=== PATIENT | female | born 2000 | race Caucasian/White ===

== ENCOUNTER 2024-01-27 08:50 | Inpatient (IN) | payer SELFPAY, OTHER ==
[2024-01-27] VITALS (21 sets, daily range): BP systolic 100–144; BP diastolic 62–88; PULSE 62–87; RESP 16–20; TEMP 36.3–37.2; O2SAT 98–100; BMI 25.3
[2024-01-27] MEDS: Lactated Ringers 1,000 ML 400 ML IV (09:20)
[2024-01-27] MEDS: Penicillin G Pot 5,000,000 UNITS in 0.9% Normal Saline (100mL MB+) 100 ML 150 UNITS IV (09:20)
[2024-01-27 09:38] LABS: Absolute Lymphocyte Count 1.84 X10^3/uL (0.83-4.51); Absolute Neutrophil Count 9.2 X10^3/uL (2.0-7.7); Basophil# 0.03 X10^3/uL; Basophil% 0.3 % (0-1); Eosinophil# 0.02 X10^3/uL; Eosinophils% 0.2 % (0-5); Hemoglobin 14.7 g/dL (12.0-15.0); Lymphocyte # 1.84 X10^3/ul (0.83-4.51); Lymphocyte % 15.5 % (19-41); Mean Corp Hgb Conc 34.2 g/dL (32-36); Mean Corpuscular Volume 87.8 fL (81-99); Mean Platelet Vol. 11.2 fl (6.2-12.0); Monocyte# 0.73 X10^3/uL; Monocyte% 6.2 % (0-10); NRBC Flagged by Analyzer 0 % (0-5); Neutrophil # 9.16 X10^3/uL (2.7-7.7); Neutrophil % 77.3 % (47-70); Platelet Count 212 K/mm3 (150-450); RBC Distribution Width SD 38.6 fl (35.1-43.9); White Blood Count 11.8 K/mm3 (4.4-11.0)
[2024-01-27 10:16] LABS: Syphilis Antibodies Non-reactive
[2024-01-27] MEDS: Penicillin G 3,000,000 Units 50 ML 100 UNITS IV (14:17)
[2024-01-27] MEDS: Ondansetron 4 MG/2 ML Vial IV (14:27)
[2024-01-27] MEDS: Oxytocin 10 UNITS/ML Vial IM (16:04)
[2024-01-27] MEDS: Lidocaine 1% (20 ml mdv) 20 ML Vial INFILT (16:04)
[2024-01-27] MEDS: Oxytocin 15 Units/NS 250ml 15 UNITS/250 ML IV.SOLN 83 UNITS IV (16:05)
--- NOTE | 2024-01-27 16:44 | EX.PCM.OBRPT ---
Assessment & Plan (1) (spontaneous vaginal delivery): (2) Post term over 40 weeks: Maternal Data Information Final CHRISTOPHER: 01/22/24 Gestational age: 40+5 Vaginal Delivery Maternal Presentation Maternal Presentation: Active Labor Operative Information Date of Procedure: 01/27/24 Pre-Operative Diagnosis: 40+5 presents in active labor Post-Operative Diagnosis: same Surgery / Procedure Performed: Spontaneous Vaginal Delivery Type of Anesthesia: None and Local with 1% Lidocaine Estimated Blood Loss: 150 cc Time of Delivery: 15:56 Findings Description of Procedure: Presented in active labor. Progressed to 7 cm and then SROM. Quickly progressed to complete and pushed over an intact perineum. CAN x1. Reduced before delivery. The anterior and posterior shoulder delivered easily. The was placed on maternal abdomen. The cord was doubly clamped and cut. Cord blood was collected. A second degree perineal laceration was repaired. Presentation: Vertex and NARINDER Amniotic Membrane Rupture Type: Spontaneous Amniotic Fluid Description: Clear Placental Delivery Description: Spontaneous Placenta Disposition: [facility] Cord Vessel Description: 3 Vessels Cord Entanglement: Around neck x 1, tight Infant A Gender: Female (1 minute): 8 (5 minute): 9 Delayed Cord Clamping: Yes Post Vaginal Delivery Medications Given After Delivery: IV Pitocin and IM Pitocin Laceration: Midline and 2nd degree Complication Complications: None
[2024-01-27] MEDS: Ibuprofen 600 MG Tablet PO (17:17)
[2024-01-27] MEDS: Acetaminophen 500 MG Tablet 1000 MG PO ×2 (17:18→23:48)
--- NOTE | 2024-01-28 01:38 | PCM.HP.OB ---
HPI - General General Date of Admission: 01/27/24 Date of Service: 01/27/24 Chief Complaint: Presented in active labor HPI Narrative MURIEL HILL, is a 23 F who presents to labor and delivery in active labor. Membranes intact. GBS positive Maternal Data Information Final CHRISTOPHER: 01/22/24 Gestational age: 40+5 PFSH PFSH Home Medications vit no.95-ferrous fumarate 28 mg-folic acid 800 mcg tablet () 1 tab PO DAILY 01/27/24 [History Last Taken 01/27/24] Allergy/AdvReac Type Severity Reaction Status Date / Time No Known Allergies Allergy Verified 01/27/24 08:45 Surgical History History of surgery Social History Smoking Status: Never smoker History 1 Elective abortions Hx Para 0 Spontaneous abortions Hx # Term Pregnancies Ectopic pregnancies Hx # Pregnancies Multiple births # of living children NST FHR Rate Baby A Variability:: Moderate Accelerations:: 15 x 15 Decelerations:: None NST Reactive:: Yes FHR Category:: Category I Uterine Activity:: q2-4 ROS Constitutional Constitutional: Denies fatigue, fever(s) or malaise Eyes Eyes: Denies change in vision ENT HEENT: Denies dizziness or headache(s) Cardiovascular Cardiovascular: Denies chest pain, dyspnea or lightheadedness Respiratory/Chest Respiratory/Chest: Denies cough or dyspnea Gastrointestinal Gastrointestinal: Denies change in bowel habits Genitourinary Genitourinary: Denies burning urination or genital lesions Integumentary Integumentary: Denies rash Neurologic Neurologic: Denies confusion, dizziness, headache(s), numbness or weakness Vital Signs Vital Signs Vital Signs: 01/27/24 09:31 01/27/24 09:31 01/27/24 09:31 Temperature Temperature Source Pulse Rate 78 Respiratory Rate Blood Pressure 111/68 Blood Pressure Mean BP Systolic 111 BP Diastolic 68 Blood Pressure Source Blood Pressure Position Blood Pressure Location Pulse Ox 100 Oxygen Delivery Method 01/27/24 09:54 01/27/24 09:31 01/27/24 09:31 Temperature 98.1 F Temperature Source Temporal Pulse Rate Respiratory Rate 16 Blood Pressure Blood Pressure Mean BP Systolic BP Diastolic Blood Pressure Source Blood Pressure Position Blood Pressure Location Pulse Ox Oxygen Delivery Method 01/27/24 09:31 01/27/24 11:47 01/27/24 11:47 Temperature 98.0 F Temperature Source Temporal Pulse Rate Respiratory Rate 18 Blood Pressure Blood Pressure Mean BP Systolic BP Diastolic Blood Pressure Source Blood Pressure Position Blood Pressure Location Pulse Ox Oxygen Delivery Method 01/27/24 11:47 01/27/24 11:51 01/27/24 11:51 Temperature 98.0 F Temperature Source Pulse Rate 82 Respiratory Rate Blood Pressure 120/79 Blood Pressure Mean BP Systolic 120 BP Diastolic 79 Blood Pressure Source Blood Pressure Position Blood Pressure Location Pulse Ox Oxygen Delivery Method 01/27/24 12:37 01/27/24 12:37 01/27/24 12:37 Temperature Temperature Source Pulse Rate 87 Respiratory Rate Blood Pressure 126/76 H Blood Pressure Mean BP Systolic 126 BP Diastolic 76 Blood Pressure Source Blood Pressure Position Blood Pressure Location Pulse Ox 100 Oxygen Delivery Method 01/27/24 12:37 01/27/24 14:00 01/27/24 14:01 Temperature 98.2 F 99.0 F Temperature Source Pulse Rate Respiratory Rate Blood Pressure 125/77 H Blood Pressure Mean BP Systolic 125 BP Diastolic 77 Blood Pressure Source Blood Pressure Position Blood Pressure Location Pulse Ox Oxygen Delivery Method 01/27/24 14:01 01/27/24 14:01 01/27/24 15:15 Temperature Temperature Source Pulse Rate 79 Respiratory Rate Blood Pressure 118/69 Blood Pressure Mean BP Systolic 118 BP Diastolic 69 Blood Pressure Source Blood Pressure Position Blood Pressure Location Pulse Ox 100 Oxygen Delivery Method 01/27/24 15:15 01/27/24 15:15 01/27/24 15:15 Temperature Temperature Source Temporal Pulse Rate 82 Respiratory Rate Blood Pressure Blood Pressure Mean BP Systolic BP Diastolic Blood Pressure Source Blood Pressure Position Blood Pressure Location Pulse Ox 100 Oxygen Delivery Method 01/27/24 15:16 01/27/24 16:28 01/27/24 16:28 Temperature 98.1 F Temperature Source Pulse Rate 79 Respiratory Rate Blood Pressure 121/72 H Blood Pressure Mean BP Systolic 121 BP Diastolic 72 Blood Pressure Source Blood Pressure Position Blood Pressure Location Pulse Ox Oxygen Delivery Method 01/27/24 16:43 01/27/24 16:43 01/27/24 16:58 Temperature Temperature Source Pulse Rate 75 Respiratory Rate Blood Pressure 125/78 H 134/81 H Blood Pressure Mean BP Systolic 125 134 BP Diastolic 78 81 Blood Pressure Source Blood Pressure Position Blood Pressure Location Pulse Ox Oxygen Delivery Method 01/27/24 16:58 01/27/24 17:13 01/27/24 17:13 Temperature Temperature Source Pulse Rate 70 73 Respiratory Rate Blood Pressure 108/80 Blood Pressure Mean BP Systolic 108 BP Diastolic 80 Blood Pressure Source Blood Pressure Position Blood Pressure Location Pulse Ox Oxygen Delivery Method 01/27/24 17:23 01/27/24 17:23 01/27/24 17:23 Temperature 98.6 F Temperature Source Temporal Pulse Rate Respiratory Rate 16 Blood Pressure Blood Pressure Mean BP Systolic BP Diastolic Blood Pressure Source Blood Pressure Position Blood Pressure Location Pulse Ox Oxygen Delivery Method 01/27/24 17:29 01/27/24 17:29 01/27/24 17:43 Temperature Temperature Source Pulse Rate 70 Respiratory Rate Blood Pressure 132/84 H 128/83 H Blood Pressure Mean BP Systolic 132 128 BP Diastolic 84 83 Blood Pressure Source Blood Pressure Position Blood Pressure Location Pulse Ox Oxygen Delivery Method 01/27/24 17:43 01/27/24 17:58 01/27/24 17:58 Temperature Temperature Source Pulse Rate 69 62 Respiratory Rate Blood Pressure 144/88 H Blood Pressure Mean BP Systolic 144 BP Diastolic 88 Blood Pressure Source Blood Pressure Position Blood Pressure Location Pulse Ox Oxygen Delivery Method 01/27/24 18:05 01/27/24 18:05 01/27/24 18:05 Temperature 98.1 F Temperature Source Temporal Pulse Rate Respiratory Rate 16 Blood Pressure Blood Pressure Mean BP Systolic BP Diastolic Blood Pressure Source Blood Pressure Position Blood Pressure Location Pulse Ox Oxygen Delivery Method 01/27/24 18:13 01/27/24 18:13 01/27/24 19:47 Temperature Temperature Source Temporal Pulse Rate 73 Respiratory Rate Blood Pressure 130/81 H Blood Pressure Mean BP Systolic 130 BP Diastolic 81 Blood Pressure Source Blood Pressure Position Blood Pressure Location Pulse Ox Oxygen Delivery Method 01/27/24 23:31 01/27/24 19:47 01/27/24 23:31 Temperature 97.4 F L 98.6 F Temperature Source Temporal Temporal Temporal Pulse Rate 77 83 Respiratory Rate 16 20 H Blood Pressure 110/74 100/62 Blood Pressure Mean 86 74 BP Systolic BP Diastolic Blood Pressure Source Monitor Monitor Blood Pressure Position Semi-Fowlers Semi-Fowlers Blood Pressure Location Left Arm Left Arm Pulse Ox 98 98 Oxygen Delivery Method Room Air Room Air Weight Weight: 71.214 kg Body Mass Index (BMI) 25.3 Physical Exam Const alert and no apparent distress General Appearance: cooperative HEENT normocephalic Resp normal respiratory effort Cardio regular rate GI soft to palpation GI Narrative: gravid, nontender, appropriate for gestational age Extremity no calf tenderness General Extremity: edema Skin no wounds Rashes: No rashes noted Psych activity/motor behavior normal Labs Labs Labs: Blood Type A NEGATIVE Antibody Screen NEGATIVE Hct 43.0 % (37-47) Hgb 14.7 g/dL (12.0-15.0) Syphilis Total Ab Non-reactive Assessment & Plan (1) Post term over 40 weeks: (2) Active labor at term: (3) Positive GBS test: PLAN: PCN
[2024-01-28 04:34] VITALS: BP 103/66; PULSE 73; RESP 16; TEMP 36.6; O2SAT 99
[2024-01-28] MEDS: Rho(D) Immune Globulin 300 MCG (1500 Unit) Syringe IV (07:50)
[2024-01-28] MEDS: 0.9% Saline Lock 10 ML Syringe IV (07:54)
[2024-01-28 08:45] VITALS: BP 105/73; PULSE 76; RESP 16; TEMP 36.8; O2SAT 97
--- NOTE | 2024-01-28 09:12 | PN.OBGYN_ITS ---
Subjective Subjective Doing well per patient and nursing staff. Ambulating and taking PO without difficulty. Voiding and passing flatus. Pain controlled. , services for assistance. Denies headache, visual changes, chest pain, shortness of breath, leg pain or increased bleeding. Lochia normal. Objective Data Objective Data Vital Signs: Vital Signs Temp Pulse Resp BP Pulse Ox O2 Del Method 97.8 F 73 16 103/66 99 Room Air 01/28/24 04:34 01/28/24 04:34 01/28/24 04:34 01/28/24 04:34 01/28/24 04:34 01/28/24 04:34 Oxygen Delivery Method Room Air Weight: 157 lb Body Mass Index (BMI) 25.3 Intake & Output: Intake and Output for Last 24 Hours 01/26/24 01/27/24 01/28/24 23:59 23:59 23:59 Intake Total 1051.67 / 1051.67 Output Total 800 / 1700 900 / 900 Balance 251.67 / -648.33 -900 / -900 Lab / Micro Data 01/27/24 09:15 Labs: Laboratory Results - last 24 hr 01/27/24 09:15: WBC 11.8 H, RBC 4.90, Hgb 14.7, Hct 43.0, MCV 87.8, MCH 30.0, MCHC 34.2, RDW Std Deviation 38.6, RDW Coeff of Janee 12.0, Plt Count 212, MPV 11.2, Immature Gran % (Auto) 0.500, Neut % (Auto) 77.3 H, Lymph % (Auto) 15.5 L, [place] % (Auto) 6.2, Eos % (Auto) 0.2, Baso % (Auto) 0.3, Absolute Neuts (auto) 9.2 H, Absolute Lymphs (auto) 1.84, Nucleated RBC % 0, Syphilis Total Ab Non- reactive, Blood Type A NEGATIVE, Antibody Screen NEGATIVE 01/27/24 23:40: Screen NEGATIVE, Baby's Blood Type O POSITIVE, Baby's TRENA NEGATIVE ROS Constitutional Constitutional: Reports systems reviewed and no addt'l complaints, except as documented; Denies headache(s) Eyes Eyes: Denies acute decrease in peripheral vision, blurry vision or change in vision ENT HEENT: Reports systems reviewed and no addt'l complaints, except as documented Cardiovascular Cardiovascular: Denies chest pain or dizziness Respiratory/Chest Respiratory/Chest: Denies cough, dyspnea, dyspnea on exertion, shortness of br eath at rest or shortness of breath with exertion Gastrointestinal Gastrointestinal: Denies abdominal pain, diarrhea, nausea or vomiting Genitourinary Genitourinary: Denies abdominal discomfort Musculoskeletal Musculoskeletal: Denies limited range of motion Integumentary Integumentary: Reports systems reviewed and no addt'l complaints, except as documented Neurologic Neurologic: Reports systems reviewed and no addt'l complaints, except as documented Psychiatric Psychiatric: Reports systems reviewed and no addt'l complaints, except as documented Endocrine Endocrinology: Reports systems reviewed and no addt'l complaints, except as documented Hematologic/Lymphatic Hematologic/Lymphatic: Reports systems reviewed and no addt'l complaints, except as documented Allergic/Immunologic Allergic/Immunologic: Reports systems reviewed and no addt'l complaints, except as documented Physical Exam Const alert and oriented x3 General Appearance: cooperative Orientation / Consciousness: awake, oriented to person, oriented to place and oriented to time Exam Limitations: no limitations HEENT normocephalic Head and Scalp: normal to inspection, normocephalic and atraumatic Face and Sinus: normal facial exam Eyes General Eye: normal appearance of both eyes Neck full ROM Chest Chest: symmetrical chest wall rise Resp normal respiratory effort and normal air movement Auscultation: clear to auscultation bilaterally Cardio regular rate, regular rhythm, S1 normal heart sound, S2 normal heart sound, no murmurs, no rub, no gallops and no clicks GI normal to inspection, nondistended, normoactive bowel sounds and non-tender appearance of the vagina normal Bladder / Kidney Exam: no CVA tenderness Back/Spine normal ROM Extremity normal to inspection and full ROM Skin no rashes or lesions noted Neuro oriented x3 and moves all extremities Sensorium / Orientation: awake, alert and oriented to person Motor Exam: clonus absent Deep Tendon Reflexes: Rt Patellar (L4): 2+ and Lt Patellar (L4): 2+ Assessment & Plan (1) (spontaneous vaginal delivery): (2) Lactating mother: PLAN: Plan 1) Routine PP care 2) 3) vitals stable 4) GBS positive without adequate treatment, D/C tomorrow
[2024-01-28] MEDS: Acetaminophen 500 MG Tablet 1000 MG PO (09:40)
--- NOTE | 2024-01-28 13:00 | PCM.DC.SUM ---
Providers Date of Admission: 01/27/24 Date of Discharge: 01/28/24 Primary Care Physician: Chelsea Primary Care Phys Reason For Visit: VAGINAL DELIVERY Diagnosis Discharge Diagnosis (1) (spontaneous vaginal delivery): Status: Acute Code(s): O80 - Encounter for full-term uncomplicated delivery (2) Lactating mother: Status: Acute Code(s): Z39.1 - Encounter for care and examination of lactating mother Plan 1) Routine PP care 2) 3) vitals stable 4) GBS positive without adequate treatment, D/C tomorrow Medications at Discharge Home Medications vit no.95-ferrous fumarate 28 mg-folic acid 800 mcg tablet () 1 tab PO DAILY 01/27/24 acetaminophen 500 mg tablet 1,000 mg (2 x 500 mg) PO Q6H PRN PRN Pain 1-10 Or Fever #0 tabs 01/28/24 ibuprofen 600 mg tablet 600 mg PO Q6H PRN PRN Pain Score 1-10 #0 tabs 01/28/24 Hospital Course Summary of Care Provided Minutes Spent on Discharge: 15 Weight / BMI Weight Weight: 157 lb Body Mass Index (BMI) 25.3 ABG / Lab / Microbiology Data 01/27/24 09:15 Laboratory: Laboratory Results - last 24 hr 01/27/24 23:40: Screen NEGATIVE, Baby's Blood Type O POSITIVE, Baby's TRENA NEGATIVE D/C Instructions Discharge Diet: No restrictions May resume sexual activity in: 6 weeks Weight Bearing Status: Full weight bearing Lifting Restricted to (Lbs): 20 Call your doctor if you observe: Fever of 101 or Higher, Inability to urinate, Inability to have a bowel movement, Using more than 1 pad per hour, Shortness of breath, Dizziness, Fainting spells, Chest pain, Increased palpitations (irregular heartbeat), Calf discomfort and Uncontrolled pain When: Follow up in 2 weeks for virtual or in person visit. 6 weeks for in person visit Meaningful Use Info Meaningful Use Meaningful Use Diagnoses (Choose all that apply): None applicable Ischemic Stroke Statin Dosing Therapy Reference: STATIN DOSE THERAPY REFERENCE: * Patients > 75 years receive moderate or high dose statin therapy. * Patients 75 years or YOUNGER should receive HIGH intensity statin dose unless contraindicated. You will be required to document reason for non-treatment if statin daily dose does not meet guidelines. HIGH DOSE STATIN THERAPY DAILY Atorvastatin > than or = to 40 mg Rosuvastatin > than or = to 20 mg Amlodipine + Atorvastatin > than or = to 2.5/40 mg Ezetimibe + Simvastatin 10/80 mg Simvastatin 80mg Discharge Plan Admission Admit Date/Time: 01/27/24 08:50 Primary Reason for Your Visit: Vaginal Delivery Attending Provider: Dayan Mcwilliams Primary Care Provider: Care Physician,No Primary Discharge Orders/Prescriptions Prescriptions: New acetaminophen 500 mg Tablet 1,000 mg PO Q6H PRN PRN (Reason: Pain 1-10 Or Fever) Qty: 0 0RF ibuprofen 600 mg Tablet 600 mg PO Q6H PRN PRN (Reason: Pain Score 1-10) Qty: 0 0RF Continued PNV cmb#95-ferrous fumarate-FA [] 28 mg iron- 800 mcg tablet 1 tab PO DAILY Referrals / Follow Up: Care Physician,No Primary [Primary Care Provider] - Disposition Disposition (needs filled in before D/C Order can be placed): Home, Self Care
[2024-01-28 13:01] VITALS: BP 103/70; PULSE 78; RESP 16; TEMP 36.7; O2SAT 98
[2024-01-28] MEDS: Ibuprofen 600 MG Tablet PO (14:33)
[2024-01-28 16:00] VITALS: BP 100/67; PULSE 71; RESP 16; TEMP 36.2; O2SAT 97
== END 2024-01-28 18:50 | disposition home or self-care (01) | DRG 807 ==
LOC: WP 08:55
PROVIDERS: Admitting Provider Obstetrics & Gynecology; Visit Provider Obstetrics & Gynecology
DX: O48.0 Post-term pregnancy (principal); Z37.0 Single live birth; B95.1 Streptococcus, group B, as the cause of diseases classified elsewhere; O70.1 Second degree perineal laceration during delivery; O99.824 Streptococcus B carrier state complicating childbirth; Z3A.40 40 weeks gestation of pregnancy
CPT/HCPCS: 59025; 59050; 85025; 85461; 86780; 86850; 86900; 86901; 90384; 99221; J7120; A4216; G0378; J2405; J2790; J2791

== ENCOUNTER 2025-07-28 17:55 | Inpatient (IN) | payer SELFPAY, OTHER ==
[2025-07-28] VITALS (7 sets, daily range): BP systolic 111–128; BP diastolic 69–79; PULSE 83–91; RESP 13–16; TEMP 36.2–36.7; O2SAT 96–99; BMI 24.9
--- OUTSIDE RECORDS SUMMARY | 2025-07-28 18:17 | XMS RPT_ITS | CCD ---
Author Organization [facility] Inform ion Partnership [facility] Care Team Providers Care Assembler Corncob Pipes Name Role Phone Unavailable Primary Care Provider Unavailabl e Care Physician, No Primary Primary Care Unava ilable Lia Tariq Admitting Unavail able Lia Tariq Attending Unavail able Lia Tariq Referring Unavail able Unavailable Primary Care Provider Unavailabl e MARCEL, BEN Attending Unavailable HAURY, BEN Referring Unavailable HAURY, BEN Referring Unavailable HAURY, BEN Referring Unavailable HAURY, BEN Attending Unavailable YI COBOS Attending Unavailable LIA UREÑA Attending Unavail able HABRAYAN, BEN Attending Unavailable HAURY, BEN Attending Unavailable YI COBOS Attending Unavailable DAYAN MCWILLIAMS Attending Unavailable KALE ZAMBRANO Attending Unavailable KALE ZAMBRANO Attending Unavailable DAYAN MCWILLIAMS Attending Unavailable Medications Current Medications Medication Drug Class(es) Dates Sig (Normalized) Sig (Original) acetaminophen 500 mg oral tablet (1 source) Start: 01-28-2024 take 1000 mg by mouth every six hours as needed Acetaminophen Active 1000 MG PO EVERY 6 HOURS NEEDED 0 January 28, 2024 12:00am amoxicillin 500 mg oral capsule (7 sources) Penicillin-class Antibacterial Start: 11-27-2022 End: 12-07-2022 take 1 capsule by mouth twice daily amoxicillin (POLYMOX, AMOXIL) 500 mg capsule Take 1 capsule by mouth twice daily for 10 days. 20 capsule 0 11/27/2022 12/07/2022 Active Start: 11-21-2006 take 2 [tsp_us] by m outh three times daily AMOXICILLIN 250 MG/5 ML ORAL SUSP Indications: Acute suppurative otitis media without spontaneous rupture of eardrum 2 tsp po tid for 7 days qs 0 11/21/2006 Active Comment on above: Take 1 capsule by mo uth twice daily for 10 days. 2 tsp po tid for 7 d ays aspirin 81 mg delayed release oral tablet (1 source) Platelet Aggregation Inhibitor, Nonsteroidal Anti-inflammatory Drug Start: 5 take 1 tablet by mouth once daily aspirin, enteric coated (ECOTRIN LOW STRENGTH) 81 mg EC tablet Indications: Encounter for supervision of other normal in first trimester (HCC) , with uncertain dates in first trimester (HCC) Take 1 tablet by mouth once daily. 90 tablet 3 01/20/2025 Active ibuprofen 600 mg oral tablet (1 source) Nonsteroidal Anti-inflammatory Drug Start: 4 take 600 mg by mouth every six hours as needed Ibuprofen Active 600 MG PO EVERY 6 HOURS NEEDED 0 January 28, 2024 12:00am Iron (20 sources) PNV [id number]-om-3s-dh a-epa 3.33 mg iron- 0.33 mg chew Take by mouth. Active PNV 803-bcyz-IZ- ch-1g-kez-epa 3.33 mg iron- 0.33 mg chew Take by mouth. 0 Active Comment on above: Take by mouth. Pnv Cmb#95-Ferrous Fumarate-Fa () 28 mg iron- 800 mcg tablet (1 source) Start: 01-27-2024 take 1 tablet by mouth once daily Pnv Cmb#95-Ferrous Fumarate-Fa () 28 mg iron- 800 mcg tablet Active 1 TABLET PO DAILY January 27, 2024 12:00am Completed/Discontinued Medications Medication Drug Class(es) Dates Sig (Normalized) Sig (Original) Antipyrine / Benzocaine (6 sources) Standardized Chemical Allergen Start: 11-21-2006 ANTIPYRINE-BENZOCAI NE 5.4 %-1.4 % EAR DROPS Indications: Acute suppurative otitis media without spontaneous rupture of eardrum Instill 4-5 drops into affected ear(s), repeat every 1-2 hr if necessary. 10 ml 0 11/21/2006 Active Comment on above: Instill 4-5 drops in to affected ear(s), repeat every 1-2 hr if necessary. ferrous sulfate (8 sources) End: 03-09-2024 ferrous sulfate (IRON ORAL) Take by mouth. 0 03/09/2024 Discontinued ferrous sulfate (IRON ORAL) Take by mouth. 0 Active Comment on above: Take by mouth. Problems Active Problems Problem Classification Problem Date Documented Da te Episodic/Chronic Bacterial infection; unspecified site (2 sources) Bacteria present; Translations: [Streptococcus, group B, as the cause of diseases classified elsewhere] 01-28-2024 Episodic Other complications of (12 sources) RhD negative; Translations: [Other specified related conditions, unspecified trimester] Onset: 01-20-2025 01-20-2025 Episodic Other complications of (17 sources) High risk ; Translations: [Supervision of high risk , unspecified, second trimester] Onset: 01-20-2025 02-24-2025 Episodic Other complications of (1 source) Supervision of high risk , unspecified, third trimester; Translations: [Supervision of high risk in third trimester (HCC)] Onset: 05-21-2025 Episodic Other complications of (1 source) Supervision of other high risk pregnancies, third trimester; Translations: [Short interval between pregnancies affecting in third trimester, antepartum (HCC)] Onset: 05-05-2025 Episodic Other upper respiratory infections (2 sources) Sore throat symptom; Translations: [Acute pharyngitis, unspecified] Episodic Prolonged (2 sources) Post-term ; Translations: [Post-term ] 01-27-2024 Episodic Residual codes; unclassified (1 source) Gestation period, 14 weeks; Translations: [14 weeks gestation of ] 07-30-2023 Episodic Residual codes; unclassified (2 sources) Gestation period, 19 weeks; Translations: [19 weeks gestation of ] 09-02-2023 Episodic Residual codes; unclassified (1 source) Gestation period, 32 weeks; Translations: [32 weeks gestation of ] 11-27-2023 Episodic Residual codes; unclassified (1 source) Gestation period, 35 weeks; Translations: [35 weeks gestation of ] 12-24-2023 Episodic Residual codes; unclassified (1 source) Gestation period, 37 weeks; Translations: [37 weeks gestation of ] 01-01-2024 Episodic Residual codes; unclassified (2 sources) Gestation period, 39 weeks; Translations: [39 weeks gestation of ] 01-17-2024 Episodic Residual codes; unclassified (1 source) Gestation period, 22 weeks; Translations: [22 weeks gestation of ] 03-24-2025 Episodic Residual codes; unclassified (1 source) Gestation period, 26 weeks; Translations: [26 weeks gestation of ] 04-21-2025 Episodic Residual codes; unclassified (1 source) Gestation period, 28 weeks; Translations: [28 weeks gestation of ] 05-05-2025 Episodic Residual codes; unclassified (1 source) Gestation period, 30 weeks; Translations: [30 weeks gestation of ] 05-21-2025 Episodic Residual codes; unclassified (1 source) Gestation period, 33 weeks; Translations: [33 weeks gestation of ] 06-11-2025 Episodic Residual codes; unclassified (1 source) 39 weeks gestation of ; Translations: [39 weeks gestation of (HCC)] Onset: 07-21-2025 Episodic Residual codes; unclassified (1 source) 38 weeks gestation of ; Translations: [38 weeks gestation of (HCC)] Onset: 07-13-2025 Episodic Residual codes; unclassified (1 source) 37 weeks gestation of ; Translations: [37 weeks gestation of (HCC)] Onset: 07-06-2025 Episodic Residual codes; unclassified (1 source) 35 weeks gestation of ; Translations: [35 weeks gestation of (HCC)] Onset: 06-25-2025 Episodic Residual codes; unclassified (1 source) 33 weeks gestation of ; Translations: [33 weeks gestation of (HCC)] Onset: 06-11-2025 Episodic Residual codes; unclassified (1 source) 30 weeks gestation of ; Translations: [30 weeks gestation of (HCC)] Onset: 05-21-2025 Episodic Residual codes; unclassified (1 source) 28 weeks gestation of ; Translations: [28 weeks gestation of (HCC)] Onset: 05-05-2025 Episodic Unclassified (2 sources) Normal labor; Translations: [Active labor at term] 01-28-2024 Past or Other Problems Problem Classification Problem Date Documented Date Episodic/Chronic Genitourinary symptoms and ill-defined conditions (20 sources) Bacteriuria; Translations: [Bacteriuria] Onset: 08-01-2023 Resolved: 03-09-2024 08-01-2023 Episodic Immunizations and screening for infectious disease (1 source) Encounter for screening for infections with a predominantly sexual mode of transmission; Translations: [Screen for STD (sexually transmitted disease)] Onset: 01-20-2025 Episodic Other complications of ; puerperium affecting management of mother (20 sources) Central nervous system malformation in fetus affecting obstetrical care; Translations: [Choroid plexus cyst of fetus affecting care of mother, antepartum, single or unspecified fetus] Onset: 08-14-2023 Resolved: 03-09-2024 08-14-2023 Episodic Other complications of (20 sources) Anemia of ; Translations: [Anemia complicating , third trimester] Onset: 10-31-2023 Resolved: 03-09-2024 10-31-2023 Chronic Other complications of (20 sources) Late entry into care; Translations: [Supervision of with insufficient care, unspecified trimester] Onset: 07-25-2023 Resolved: 03-09-2024 07-25-2023 Episodic Other complications of (1 source) Other specified related conditions, unspecified trimester; Translations: [Rh negative state in antepartum period (HCC)] Onset: 01-20-2025 Episodic Other complications of (1 source) Supervision of high risk , unspecified, second trimester; Translations: [Supervision of high risk in second trimester (HCC)] Onset: 02-24-2025 Episodic Other complications of (1 source) Supervision of other high risk pregnancies, second trimester; Translations: [Short interval between pregnancies affecting in second trimester, antepartum (HCC)] Onset: 02-24-2025 Episodic Other and delivery including normal (20 sources) Normal ; Translations: [Encounter for supervision of normal first , third trimester] Onset: 01-20-2025 11-27-2023 Episodic Other screening for suspected conditions (not mental disorders or infectious disease) (5 sources) Patient encounter status; Translations: [Encounter for other specified screening] Onset: 03-24-2025 09-02-2023 Episodic Residual codes; unclassified (1 source) Gestation period, 38 weeks; Translations: [38 weeks gestation of ] 01-10-2024 Episodic Residual codes; unclassified (1 source) 26 weeks gestation of ; Translations: [26 weeks gestation of (HCC)] Onset: 04-21-2025 Episodic Residual codes; unclassified (1 source) 22 weeks gestation of ; Translations: [22 weeks gestation of ([facility])] Onset: 03-24-2025 Episodic Residual codes; unclassified (1 source) Unspecified blood type, Rh negative; Translations: [Rh negative state in antepartum period ([facility])] Onset: 01-20-2025 Episodic Residual codes; unclassified (1 source) 18 weeks gestation of ; Translations: [18 weeks gestation of ([facility])] Onset: 02-24-2025 Episodic Results Test Name Value Interpretation Reference Range Facil ity ROUTINE, GROUP B ST REPTOCOCCUS BY PCRon 07-06-2025 ROUTINE, GROUP B STREPTOCOCCUS BY PCR Detected Abnormal [facility] Comment on above: Performed By: #### 5 7021-8 #### [facility] CLIA [id number] [address] [place] [address] [place] URINE OB DIP B/Oon Glucose Ql (U) Negative Neg mg/dL [facility] Protein.monoclonal (U) [Mass/Vol] Negative Neg mg/dL [facility] CBC W Auto Differential pane l (Bld)on 05-05-2025 Basophils (Bld) [#/Vol] 10*3/uL Normal <0.11 [facility] Comment on above: Order Comment: Speci men Type: BLOOD SPECIMEN Ordering Facility: [facility] Address: [address] [place] [address] Performed By: #### 5 7021-8 #### [facility] CLIA [id number] [address] [place] [address] [place] Basophils/100 WBC (Bld) 0.1 % Normal [facility] Comment on above: Order Comment: Speci men Type: BLOOD SPECIMEN Ordering Facility: [facility] Address: [address] [place] [address] Performed By: #### 5 7021-8 #### [facility] CLIA [id number] [address] [place] [address] [place] Differential cell count method Nom (Bld) Auto Normal [facility] Comment on above: Order Comment: Speci men Type: BLOOD SPECIMEN Ordering Facility: [facility] Address: [address] [place] [address] Performed By: #### 5 7021-8 #### [facility] CLIA [id number] [address] [place] [address] [place] Eosinophils (Bld) [#/Vol] 0.07 10*3/uL Normal <0.46 [facility] Comment on above: Order Comment: Speci men Type: BLOOD SPECIMEN Ordering Facility: [facility] Address: [address] [place] [address] Performed By: #### 5 7021-8 #### [facility] CLIA [id number] [address] [place] [address] [place] Eosinophils/100 WBC (Bld) 1.0 % Normal [facility] Comment on above: Order Comment: Speci men Type: BLOOD SPECIMEN Ordering Facility: [facility] Address: [address] [place] [address] Performed By: #### 5 7021-8 #### [facility] CLIA [id number] [address] [place] [address] [place] Erythrocyte distribution width (RBC) [Ratio] 11.9 % Normal 11.5-15.0 [facility] Comment on above: Order Comment: Speci men Type: BLOOD SPECIMEN Ordering Facility: [facility] Address: [address] [place] [address] Performed By: #### 5 7021-8 #### [facility] CLIA [id number] [address] [place] [address] [place] Hematocrit (Bld) [Volume fraction] 32.9 % Low 36.0-46.0 [facility] Comment on above: Order Comment: Speci men Type: BLOOD SPECIMEN Ordering Facility: [facility] Address: [address] [place] [address] Performed By: #### 5 7021-8 #### [facility] CLIA [id number] [address] [place] [address] [place] Hemoglobin (Bld) [Mass/Vol] 11.0 g/dL Low 11.5-15.5 [facility] Comment on above: Order Comment: Speci men Type: BLOOD SPECIMEN Ordering Facility: [facility] Address: [address] [place] [address] Performed By: #### 5 7021-8 #### [facility] CLIA [id number] [address] [place] [address] [place] Immature granulocytes (Bld) [#/Vol] 0.03 10*3/uL Normal <0.10 [facility] Comment on above: Order Comment: Speci men Type: BLOOD SPECIMEN Ordering Facility: [facility] Address: [address] [place] [address] Performed By: #### 5 7021-8 #### [facility] CLIA [id number] [address] [place] [address] [place] Immature granulocytes/100 WBC (Bld) 0.4 % Normal [facility] Comment on above: Order Comment: Speci men Type: BLOOD SPECIMEN Ordering Facility: [facility] Address: [address] [place] [address] Performed By: #### 5 7021-8 #### [facility] CLIA [id number] [address] [place] [address] [place] Lymphocytes (Bld) [#/Vol] 1.35 10*3/uL Normal 1.00-4.00 [facility] Comment on above: Order Comment: Speci men Type: BLOOD SPECIMEN Ordering Facility: [facility] Address: [address] [place] [address] Performed By: #### 5 7021-8 #### [facility] CLIA [id number] [address] [place] [address] [place] Lymphocytes/100 WBC (Bld) 19.8 % Normal [facility] Comment on above: Order Comment: Speci men Type: BLOOD SPECIMEN Ordering Facility: [facility] Address: [address] [place] [address] Performed By: #### 5 7021-8 #### [facility] CLIA [id number] [address] [place] [address] [place] MCH (RBC) [Entitic mass] 30.4 pg Normal 26.0-34.0 [facility] Comment on above: Order Comment: Speci men Type: BLOOD SPECIMEN Ordering Facility: [facility] Address: [address] [place] [address] Performed By: #### 5 7021-8 #### [facility] CLIA [id number] [address] [place] [address] [place] MCHC (RBC) [Mass/Vol] 33.4 g/dL Normal 30.5-36.0 [facility] Comment on above: Order Comment: Speci men Type: BLOOD SPECIMEN Ordering Facility: [facility] Address: [address] [place] [address] Performed By: #### 5 7021-8 #### [facility] CLIA [id number] [address] [place] [address] [place] MCV (RBC) [Entitic vol] 90.9 fL Normal 80.0-100.0 [facility] Comment on above: Order Comment: Speci men Type: BLOOD SPECIMEN Ordering Facility: [facility] Address: [address] [place] [address] Performed By: #### 5 7021-8 #### [facility] CLIA [id number] [address] [place] [address] [place] Monocytes (Bld) [#/Vol] 0.49 10*3/uL Normal <0.87 [facility] Comment on above: Order Comment: Speci men Type: BLOOD SPECIMEN Ordering Facility: [facility] Address: [address] [place] [address] Performed By: #### 5 7021-8 #### [facility] CLIA [id number] [address] [place] [address] [place] Monocytes/100 WBC (Bld) 7.2 % Normal [facility] Comment on above: Order Comment: Speci men Type: BLOOD SPECIMEN Ordering Facility: [facility] Address: [address] [place] [address] Performed By: #### 5 7021-8 #### [facility] CLIA [id number] [address] [place] [address] [place] Neutrophils (Bld) [#/Vol] 4.88 10*3/uL Normal 1.45-7.50 [facility] Comment on above: Order Comment: Speci men Type: BLOOD SPECIMEN Ordering Facility: [facility] Address: [address] [place] [address] Performed By: #### 5 7021-8 #### [facility] CLIA [id number] [address] [place] [address] [place] Neutrophils/100 WBC (Bld) 71.5 % Normal [facility] Comment on above: Order Comment: Speci men Type: BLOOD SPECIMEN Ordering Facility: [facility] Address: [address] [place] [address] Performed By: #### 5 7021-8 #### [facility] CLIA [id number] [address] [place] [address] [place] Nucleated RBC (Bld) [#/Vol] 10*3/uL Normal <0.01 [facility] Comment on above: Order Comment: Speci men Type: BLOOD SPECIMEN Ordering Facility: [facility] Address: [address] [place] [address] Performed By: #### 5 7021-8 #### [facility] CLIA [id number] [address] [place] [address] [place] Nucleated RBC/100 WBC (Bld) [Ratio] 0.0 /100 WBC Normal [facility] Comment on above: Order Comment: Speci men Type: BLOOD SPECIMEN Ordering Facility: [facility] Address: [address] [place] [address] Performed By: #### 5 7021-8 #### [facility] CLIA [id number] [address] [place] [address] [place] Platelet mean volume (Bld) [Entitic vol] 10.8 fL Normal 9.0-12.7 [facility] Comment on above: Order Comment: Speci men Type: BLOOD SPECIMEN Ordering Facility: [facility] Address: [address] [place] [address] Performed By: #### 5 7021-8 #### [facility] CLIA [id number] [address] [place] [address] [place] Platelets (Bld) [#/Vol] 178 10*3/uL Normal 150-400 [facility] Comment on above: Order Comment: Speci men Type: BLOOD SPECIMEN Ordering Facility: [facility] Address: [address] [place] [address] Performed By: #### 5 7021-8 #### [facility] CLIA [id number] [address] [place] [address] [place] RBC (Bld) [#/Vol] 3.62 10*6/uL Low 3.90-5.20 [facility] Comment on above: Order Comment: Speci men Type: BLOOD SPECIMEN Ordering Facility: [facility] Address: [address] [place] [address] Performed By: #### 5 7021-8 #### [facility] CLIA [id number] [address] [place] [address] [place] WBC (Bld) [#/Vol] 6.83 10*3/uL Normal 3.70-11.00 [facility] Comment on above: Order Comment: Speci men Type: BLOOD SPECIMEN Ordering Facility: [facility] Address: [address] [place] [address] Performed By: #### 5 7021-8 #### [facility] CLIA [id number] [address] [place] [address] [place] GESTATIONAL GLUCOSE SCREEN, 1-HOUR, 50 GRAM, NON-FASTINGon 05-05-2025 Glucose [Mass/Vol] 118 mg/dL Normal 74-134 [facility] Comment on above: Order Comment: Speci men Type: BLOOD SPECIMEN Ordering Facility: [facility] Address: [address] [place] [address] Result Comment: [facility] Congress of Obstetricians and Gynecologists (Lucas/Dar) guidelines state a gestational diabetes mellitus positive screen is made, in women not previously diagnosed with overt diabetes, when the 1 hr plasma glucose level is equal to or above 140 mg/dL. The [facility] [employer] [facility] recommends a 135 mg/dL cutoff. Performed By: #### G LTGST #### [facility] CLIA [id number] [address] [place] [address] [place] Reagin and Treponema pallidu m IgG and IgM [Interp]on 05-05-2025 T. pallidum IgG+IgM IA Ql (S) Non-Reactive Normal Nonreactive [facility] Comment on above: Order Comment: Speci men Type: BLOOD SPECIMEN Ordering Facility: [facility] Address: [address] [place], [place] [address] Performed By: #### 5 7021-8 #### [facility] CLIA [id number] [address] [place] [address] [place] Reagin+T pallidum IgG+IgM Se rPl-Impon 05-05-2025 Reagin and Treponema pallidum IgG and IgM [Interp] Cannot exclude recent Treponemal infection if specimen collected within 7-10 days after appearance of suspect lesions or 2-3 weeks after an exposure. Clinical correlation is required. Normal [facility] Comment on above: Order Comment: Speci men Type: BLOOD SPECIMEN Ordering Facility: [facility] Address: [address] [place] [address] Performed By: #### 5 7021-8 #### [facility] CLIA [id number] [address] [place] [address] [place] TYPE + SCREEN PRENATALon ABO A Normal [facility] Comment on above: Order Comment: Speci men Type: BLOOD SPECIMEN Ordering Facility: [facility] Address: [address] [place] [address] Performed By: #### T SPN #### [facility] CLIA [id number] [address] [place] [address] [place] Rh Nom (Bld) Negative Normal [facility] Comment on above: Order Comment: Speci men Type: BLOOD SPECIMEN Ordering Facility: [facility] Address: [address] [place] [address] Performed By: #### T SPN #### [facility] CLIA [id number] [address] [place] [address] [place] TYPE AND SCREEN EXPIRATION 05/08/2025 23:59 Normal [facility] Comment on above: Order Comment: Speci men Type: BLOOD SPECIMEN Ordering Facility: [facility] Address: [address] [place] [address] Performed By: #### T SPN #### [facility] CLIA [id number] [address] [place] [address] [place] Bacteria Ur Culton Bacteria identified Cx Nom (U) ORGANISM ID: 1 10,000 -<50,000 CFU/ml Normal urogenital yoly Normal [facility] Comment on above: Performed By: #### 5 7021-8 #### [facility] CLIA [id number] [address] [place] [address] [place] C. trachomatis+N. gonorrhoea e DNA ELENA+probe Ql (Unsp spec)on 01-20-2025 C. trachomatis rRNA ELENA+probe Ql (Unsp spec) Not detected Normal Not detected [facility] Comment on above: Order Comment: Speci men Type: SWAB Ordering Facility: [facility] Address: [address] [place] [address] Performed By: #### 3 6902-5, TRVAMP #### [facility] CLIA [id number] [address] [place] [address] [place] N. gonorrhoeae rRNA ELENA+probe Ql (Unsp spec) Not detected Normal Not detected [facility] Comment on above: Order Comment: Speci men Type: SWAB Ordering Facility: [facility] Address: [address] [place] [address] Performed By: #### 3 6902-5, TRVAMP #### [facility] CLIA [id number] [address] [place] [address] [place] CBC W Auto Differential pane l (Bld)on 01-20-2025 Basophils (Bld) [#/Vol] 0.03 10*3/uL Normal <0.11 [facility] Comment on above: Order Comment: Speci men Type: BLOOD SPECIMEN Ordering Facility: [facility] Address: [address] [place] [address] Performed By: #### 5 7021-8 #### [facility] CLIA [id number] [address] [place] [address] [place] Basophils/100 WBC (Bld) 0.4 % Normal [facility] Comment on above: Order Comment: Speci men Type: BLOOD SPECIMEN Ordering Facility: [facility] Address: [address] [place] [address] Performed By: #### 5 7021-8 #### [facility] CLIA [id number] [address] [place] [address] [place] Differential cell count method Nom (Bld) Auto Normal [facility] Comment on above: Order Comment: Speci men Type: BLOOD SPECIMEN Ordering Facility: [facility] Address: [address] [place] [address] Performed By: #### 5 7021-8 #### [facility] CLIA [id number] [address] [place] [address] [place] Eosinophils (Bld) [#/Vol] 0.05 10*3/uL Normal <0.46 [facility] Comment on above: Order Comment: Speci men Type: BLOOD SPECIMEN Ordering Facility: [facility] Address: [address] [place] [address] Performed By: #### 5 7021-8 #### [facility] CLIA [id number] [address] [place] [address] [place] Eosinophils/100 WBC (Bld) 0.6 % Normal [facility] Comment on above: Order Comment: Speci men Type: BLOOD SPECIMEN Ordering Facility: [facility] Address: [address] [place] [address] Performed By: #### 5 7021-8 #### [facility] CLIA [id number] [address] [place] [address] [place] Erythrocyte distribution width (RBC) [Ratio] 12.2 % Normal 11.5-15.0 [facility] Comment on above: Order Comment: Speci men Type: BLOOD SPECIMEN Ordering Facility: [facility] Address: [address] [place] [address] Performed By: #### 5 7021-8 #### [facility] CLIA [id number] [address] [place] [address] [place] Hematocrit (Bld) [Volume fraction] 36.0 % Normal 36.0-46.0 [facility] Comment on above: Order Comment: Speci men Type: BLOOD SPECIMEN Ordering Facility: [facility] Address: [address] [place] [address] Performed By: #### 5 7021-8 #### [facility] CLIA [id number] [address] [place] [address] [place] Hemoglobin (Bld) [Mass/Vol] 12.6 g/dL Normal 11.5-15.5 [facility] Comment on above: Order Comment: Speci men Type: BLOOD SPECIMEN Ordering Facility: [facility] Address: [address] [place] [address] Performed By: #### 5 7021-8 #### [facility] CLIA [id number] [address] [place] [address] [place] Immature granulocytes (Bld) [#/Vol] 0.03 10*3/uL Normal <0.10 [facility] Comment on above: Order Comment: Speci men Type: BLOOD SPECIMEN Ordering Facility: [facility] Address: [address] [place] [address] Performed By: #### 5 7021-8 #### [facility] CLIA [id number] [address] [place] [address] [place] Immature granulocytes/100 WBC (Bld) 0.4 % Normal [facility] Comment on above: Order Comment: Speci men Type: BLOOD SPECIMEN Ordering Facility: [facility] Address: [address] [place] [address] Performed By: #### 5 7021-8 #### [facility] CLIA [id number] [address] [place] [address] [place] Lymphocytes (Bld) [#/Vol] 1.72 10*3/uL Normal 1.00-4.00 [facility] Comment on above: Order Comment: Speci men Type: BLOOD SPECIMEN Ordering Facility: [facility] Address: [address] [place] [address] Performed By: #### 5 7021-8 #### [facility] CLIA [id number] [address] [place] [address] [place] Lymphocytes/100 WBC (Bld) 21.7 % Normal [facility] Comment on above: Order Comment: Speci men Type: BLOOD SPECIMEN Ordering Facility: [facility] Address: [address] [place] [address] Performed By: #### 5 7021-8 #### [facility] CLIA [id number] [address] [place] [address] [place] MCH (RBC) [Entitic mass] 29.9 pg Normal 26.0-34.0 [facility] Comment on above: Order Comment: Speci men Type: BLOOD SPECIMEN Ordering Facility: [facility] Address: [address] [place] [address] Performed By: #### 5 7021-8 #### [facility] CLIA [id number] [address] [place] [address] [place] MCHC (RBC) [Mass/Vol] 35.0 g/dL Normal 30.5-36.0 [facility] Comment on above: Order Comment: Speci men Type: BLOOD SPECIMEN Ordering Facility: [facility] Address: [address] [place] [address] Performed By: #### 5 7021-8 #### [facility] CLIA [id number] [address] [place] [address] [place] MCV (RBC) [Entitic vol] 85.5 fL Normal 80.0-100.0 [facility] Comment on above: Order Comment: Speci men Type: BLOOD SPECIMEN Ordering Facility: [facility] Address: [address] [place] [address] Performed By: #### 5 7021-8 #### [facility] CLIA [id number] [address] [place] [address] [place] Monocytes (Bld) [#/Vol] 0.54 10*3/uL Normal <0.87 [facility] Comment on above: Order Comment: Speci men Type: BLOOD SPECIMEN Ordering Facility: [facility] Address: [address] [place] [address] Performed By: #### 5 7021-8 #### [facility] CLIA [id number] [address] [place] [address] [place] Monocytes/100 WBC (Bld) 6.8 % Normal [facility] Comment on above: Order Comment: Speci men Type: BLOOD SPECIMEN Ordering Facility: [facility] Address: [address] [place] [address] Performed By: #### 5 7021-8 #### [facility] CLIA [id number] [address] [place] [address] [place] Neutrophils (Bld) [#/Vol] 5.57 10*3/uL Normal 1.45-7.50 [facility] Comment on above: Order Comment: Speci men Type: BLOOD SPECIMEN Ordering Facility: [facility] Address: [address] [place] [address] Performed By: #### 5 7021-8 #### [facility] CLIA [id number] [address] [place] [address] [place] Neutrophils/100 WBC (Bld) 70.1 % Normal [facility] Comment on above: Order Comment: Speci men Type: BLOOD SPECIMEN Ordering Facility: [facility] Address: [address] [place] [address] Performed By: #### 5 7021-8 #### [facility] CLIA [id number] [address] [place] [address] [place] Nucleated RBC (Bld) [#/Vol] 10*3/uL Normal <0.01 [facility] Comment on above: Order Comment: Speci men Type: BLOOD SPECIMEN Ordering Facility: [facility] Address: [address] [place] [address] Performed By: #### 5 7021-8 #### [facility] CLIA [id number] [address] [place] [address] [place] Nucleated RBC/100 WBC (Bld) [Ratio] 0.0 /100 WBC Normal [facility] Comment on above: Order Comment: Speci men Type: BLOOD SPECIMEN Ordering Facility: [facility] Address: [address] [place] [address] Performed By: #### 5 7021-8 #### [facility] CLIA [id number] [address] [place] [address] [place] Platelet mean volume (Bld) [Entitic vol] 9.6 fL Normal 9.0-12.7 [facility] Comment on above: Order Comment: Speci men Type: BLOOD SPECIMEN Ordering Facility: [facility] Address: [address] [place] [address] Performed By: #### 5 7021-8 #### [facility] CLIA [id number] [address] [place] [address] [place] Platelets (Bld) [#/Vol] 214 10*3/uL Normal 150-400 [facility] Comment on above: Order Comment: Speci men Type: BLOOD SPECIMEN Ordering Facility: [facility] Address: [address] [place] [address] Performed By: #### 5 7021-8 #### [facility] CLIA [id number] [address] [place] [address] [place] RBC (Bld) [#/Vol] 4.21 10*6/uL Normal 3.90-5.20 [facility] Comment on above: Order Comment: Speci men Type: BLOOD SPECIMEN Ordering Facility: [facility] Address: [address] [place] [address] Performed By: #### 5 7021-8 #### [facility] CLIA [id number] [address] [place] [address] [place] WBC (Bld) [#/Vol] 7.94 10*3/uL Normal 3.70-11.00 [facility] Comment on above: Order Comment: Speci men Type: BLOOD SPECIMEN Ordering Facility: [facility] Address: [address] [place] [address] Performed By: #### 5 7021-8 #### [facility] CLIA [id number] [address] [place] [address] [place] HBV surface Ag Ser Qlon 01-05 HBV surface Ag Ql (S) Negative Normal Negative [facility] Comment on above: Order Comment: Speci men Type: BLOOD SPECIMEN Ordering Facility: [facility] Address: [address] [place] [address] Performed By: #### 5 7021-8 #### [facility] CLIA [id number] [address] [place] [address] [place] HCV Ab Ql (S)on 01-20-2025 Interpretation and review of laboratory results Normal [facility] HCV Ab Ser Qlon 01-20-2025 HCV Ab Ql (S) Negative Normal Negative [facility] Comment on above: Order Comment: [facility] Type: BLOOD SPECIMEN Ordering Facility: [facility] Address: [address] [place] [address] Result Comment: The result suggests no evidence of infection with Hepatitis C virus. Should recent infection be suspected, repeat testing may be considered 4-6 weeks after this draw. Performed By: #### 5 7021-8 #### [id number] [address] [place] [address] [place] HEPATITIS C ANTIBODY IA WITH CONFIRMATIONon 01-20-2025 HCV Ab Ql (S) Negative Negative [facility] Comment on above: The result suggests no evidence of infection with Hepatitis C virus. Should recent infection be suspected, repeat testing may be considered 4-6 weeks after this draw. HIV 1+2 Ab IA Qlon HIV 1 and 2 Ab IA.rapid Nom (S/P/Bld) Normal [facility] Comment on above: Order Comment: Speci men Type: BLOOD SPECIMEN Ordering Facility: [facility] Address: [address] [place], [place] [address] Result Comment: Test not indicated. Performed By: #### 5 7021-8 #### [facility] CLIA [id number] [address] [place] [address] [place] HIV 1+2 Ab+HIV1 p24 Ag IA Ql Non-Reactive Normal Nonreactive [facility] Comment on above: Order Comment: Speci men Type: BLOOD SPECIMEN Ordering Facility: [facility] Address: [address] [place] [address] Performed By: #### 5 7021-8 #### [facility] CLIA [id number] [address] [place] [address] [place] HIV immunoassay testing algorithm interpretation (S/P/Bld) [Interp] Normal [facility] Comment on above: Order Comment: Speci men Type: BLOOD SPECIMEN Ordering Facility: [facility] Address: [address] [place] [address] Result Comment: No e vidence of HIV-1 or HIV-2 infection. Should recent infection be suspected, repeat testing may be considered 2-3 weeks after this draw. [place] Rev. Code 3701.243(E): This information has been disclosed to you from confidential records protected from disclosure by state law. ???You shall make no further disclosure of this information without the specific, written, and informed release of the individual to whom it pertains or as otherwise permitted by state law. A general authorization for the release of medical or other information is not sufficient for the purpose of the release of HIV test results or diagnoses. Performed By: #### 5 7021-8 #### [facility] CLIA [id number] [address] [place] [address] [place] HbA1c (Bld)on 01-20-2025 Average glucose Estimated from glycated hemoglobin (Bld) [Mass/Vol] 97 mg/dL Normal [facility] Comment on above: Order Comment: Speci men Type: BLOOD SPECIMEN Ordering Facility: [facility] Address: [address] [place] [address] Result Comment: eAG: (Estimated average glucose) is a calculated value from HgbA1c and is agricultural sales representative of the average blood glucose level in the last 2-3 month period. Performed By: #### 5 5454-3 #### [facility] CLIA [id number] [address] [place] [address] [place] HbA1c (Bld) [Mass fraction] 5.0 % Normal 4.3-5.6 [facility] Comment on above: Order Comment: Speci men Type: BLOOD SPECIMEN Ordering Facility: [facility] Address: [address] [place] [address] [place] [address] Result Comment: [place] Diabetes Association guidelines indicate that patients with HgbA1c in the range 5.7-6.4% are at increased risk for development of diabetes, and intervention by lifestyle modification may be beneficial. HgbA1c greater or equal to 6.5% is considered diagnostic of diabetes. 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 Method Transabdominal ultrasound examination. View: Adequate visualization Bose . Number of fetuses: 1 Dating LMP on: 10/19/2024 GA by LMP 13 w + 2 d CHRISTOPHER by LMP: 07/26/2025 Ultrasound examination on: 01/20/2025 GA by U/S based upon: CRL GA by U/S 12 w + 3 d CHRISTOPHER by U/S: 08/01/2025 Assigned: based on the LMP, selected on 01/20/2025 Assigned GA 13 w + 2 d Assigned CHRISTOPHER: 07/26/2025 Biometry Standard FHR 145 bpm 3% Nicolaides CRL 59.3 mm 12w 3d 5% Hadlock Assessment Gestational sac: visualized Location: intrauterine Yolk sac: not visualized Embryo: visualized CRL 59.3 mm 12w 3d 5% Hadlock Cardiac activity: present FHR 145 bpm 3% Nicolaides General Evaluation Cardiac activity present. FHR 145 bpm Performed By: Ben Rod NP Read By: Ben Rod NP MATERNAL MEDICINE [facility] Radiology Study observation (narrative) [facility] RUBELLA IGG ANTIBODYon 01-20 RUBELLA IGG AB, QUAL Positive Normal Positive [facility] Comment on above: Order Comment: Speci men Type: BLOOD SPECIMEN Ordering Facility: [facility] Address: [address] [place] [address] Result Comment: The result suggests recent or past exposure to Rubella virus or history of Rubella vaccination. Positive result may also be seen due to presence of passively-transferred antibodies. Please correlate with patient's history. Performed By: #### 5 7021-8 #### [facility] CLIA [id number] [address] [place] [address] [place] Reagin and Treponema pallidu m IgG and IgM [Interp]on 01-20-2025 T. pallidum IgG+IgM IA Ql (S) Non-Reactive Normal Nonreactive [facility] Comment on above: Order Comment: Speci men Type: SWAB Ordering Facility: [facility] Address: [address] [place] [address] Performed By: #### 3 6902-5, TRVARACQUEL #### [facility] CLIA [id number] [address] [place] [address] [place] Reagin+T pallidum IgG+IgM Se rPl-Impon 01-20-2025 Reagin and Treponema pallidum IgG and IgM [Interp] Cannot exclude recent Treponemal infection if specimen collected within 7-10 days after appearance of suspect lesions or 2-3 weeks after an exposure. Clinical correlation is required. Normal [facility] Comment on above: Order Comment: Speci men Type: SWAB Ordering Facility: [facility] Address: [address] [place] [address] Performed By: #### 3 6902-5, TRVAMP #### [facility] CLIA [id number] [address] [place] [address] [place] TRICHOMONAS VAGINALIS NAATon 01-20-2025 T. vaginalis DNA ELENA+probe Ql (Unsp spec) Not detected Normal Not detected [facility] Comment on above: Order Comment: Speci men Type: SWAB Ordering Facility: [facility] Address: [address] [place] [address] Performed By: #### 3 6902-5, TRVAMP #### [facility] CLIA [id number] [address] [place] [address] [place] TYPE + SCREEN PRENATALon ABO A Normal [facility] Comment on above: Order Comment: Speci men Type: BLOOD SPECIMEN Ordering Facility: [facility] Address: [address] [place] [address] Performed By: #### T SPN #### [facility] CLIA [id number] [address] [place] [address] [place] Rh Nom (Bld) Negative Normal [facility] Comment on above: Order Comment: Speci men Type: BLOOD SPECIMEN Ordering Facility: [facility] Address: [address] [place] [address] Performed By: #### T SPN #### [facility] CLIA [id number] [address] [place] [address] [place] TYPE AND SCREEN EXPIRATION 01/23/2025 23:59 Normal [facility] Comment on above: Order Comment: Speci men Type: BLOOD SPECIMEN Ordering Facility: [facility] Address: [address] [place] [address] Performed By: #### T SPN #### [facility] CLIA [id number] [address] [place] [address] [place] CNPTerrie 01-19-2025 CNPN Telephone (OBGYWM) ---- MURIEL SWARTZ ([id number]) 1 F Date Time Provider Department 01/19/25 BEN ROD During your visit today, we recorded the following information about you: Amparo Montoya MA 01/19/2025 1:24 PM Signed Attempted to contact patient to go over new ob intake questions using phone number listed in chart. No answer; left a voicemail. Patient was advised to come in 30 minutes prior to her appointment time if she is not able to complete intake. VALERY Wilson Tara, RN 01/19/2025 2:20 PM Signed Pt returned call; however, informed her that the MA that called her is currently with a patient; therefore, advised Pt to please arrive 30 minutes prior to appt and to arrive with full bladder. Pt voiced understanding. Riky Sinclair RN Allergies As of Date: 01/19/2025 (No Known Allergies) Date Reviewed: 03/09/2024 Reviewed by: Ann De La Vega APRN.COUNTERSINKER - Fully Assessed Prescriptions as of 01/19/2025 - PNV [id number] 3.33 mg iron- 0.33 mg chew Take by mouth. Problem List As Of Date 01/19/2025 Noted Resolved Late care affecting [O09.30] 07/25/2023 03/09/2024 GBS bacteriuria [R82.71] 08/01/2023 03/09/2024 Choroid plexus cyst, , affecting care of m*08/14/2023 03/09/2024 Anemia during in third trimester [O99*10/31/2023 03/09/2024 Encounter Status:Closed by RIKY SINCLAIR on 01/19/25 Normal [facility] Absolute lymphocyte countOrd ered By: Dayan Mcwilliams on 01-27-2024 Lymphocytes Auto (Unsp spec) [#/Vol] 1.84 10*3/uL 0.83-4.51 [facility] Automated lymphocyte count a s percentage of total leukocytesOrdered By: Dayan Mcwilliams on 01-27-2024 Lymphocytes/100 WBC Auto (Unsp spec) 15.5 % 19-41 [facility] Basophil percentageOrdered B y: Dayan Oj on 01-27-2024 Basophils/100 WBC (Bld) 0.3 % 0-1 [facility] Eosinophils/100 WBC (Bld) 0.2 % 0-5 [facility] Hemoglobin (Bld) [Mass/Vol] 14.7 g/dL 12.0-15.0 [facility] Monocytes/100 WBC (Bld) 6.2 % 0-10 [facility] Neutrophils (Bld) [#/Vol] 9.2 10*3/uL 2.0-7.7 [facility] Neutrophils/100 WBC (Bld) 77.3 % 47-70 [facility] WBC (Bld) [#/Vol] 11.8 10*3/uL 4.4-11.0 [facility] Determination of erythrocyte mean corpuscular volume (MCV)Ordered By: Dayan Mcwilliams on 01-27-2024 MCV (RBC) [Entitic vol] 87.8 fL 81-99 [facility] Erythrocyte distribution wid th ratioOrdered By: Dayanmax Mcwilliams on 01-27-2024 Erythrocyte distribution width (RBC) [Ratio] 12.0 % 11.6-14.6 [facility] Erythrocyte distribution wid th standard deviationOrdered By: Dayan Mcwilliams on 01-27-2024 Erythrocyte distribution width (RBC) [Entitic vol] 38.6 fL 35.1-43.9 [facility] Hematocrit Auto (Bld) [Volum e fraction]Ordered By: Dayan Mcwilliams on 01-27-2024 Hematocrit (Bld) [Volume fraction] 43.0 % 37-47 [facility] Immature granulocytes/100 WB C Auto (Bld)Ordered By: Dayan Mcwilliams on 01-27-2024 Immature granulocytes/100 WBC (Bld) 0.500 % 0.0-0.9 [facility] Comment on above: IG% - Immature Granu locytes (promyelocytes, myelocytes and metamyelocytes) > 1% indicates that a LEFT SHIFT is Present. Laboratory - Hematology and Cell countsOrdered By: Dayan Mcwilliams on 01-27-2024 MCH (RBC) [Entitic mass] 30.0 pg 27.0-32.0 [facility] MCHC (RBC) [Mass/Vol] 34.2 g/dL 32-36 [facility] Nucleated RBC/100 WBC (Bld) [Ratio] 0 % 0-5 [facility] Platelet mean volume (Bld) [Entitic vol] 11.2 fL 6.2-12.0 [facility] Platelets (Bld) [#/Vol] 212 10*3/uL 150-450 [facility] RBC Auto (Bld) [#/Vol]Ordere d By: Dayan Mcwilliams on 01-27-2024 RBC (Bld) [#/Vol] 4.90 10*6/uL 4.2-5.4 [facility] Serum Treponema species anti body detectionOrdered By: Dayan Mcwilliams on 01-27-2024 Treponema sp Ab Ql (S) Non-Reactive [facility] URINE OB DIP B/Oon 4 Glucose Ql (U) Negative Neg mg/dL [facility] Protein.monoclonal (U) [Mass/Vol] Negative Neg mg/dL [facility] URINE OB DIP B/Oon 4 Glucose Ql (U) Negative Neg mg/dL [facility] Protein.monoclonal (U) [Mass/Vol] Negative Neg mg/dL [facility] URINE OB DIP B/Oon 4 Glucose Ql (U) Negative Neg mg/dL [facility] Protein.monoclonal (U) [Mass/Vol] Negative Neg mg/dL [facility] URINE OB DIP B/Oon 4 Glucose Ql (U) Negative Neg mg/dL [facility] Protein.monoclonal (U) [Mass/Vol] Negative Neg mg/dL [facility] URINE OB DIP B/Oon 4 Glucose Ql (U) Negative Neg mg/dL [facility] Protein.monoclonal (U) [Mass/Vol] Negative Neg mg/dL [facility] URINE OB DIP B/Oon 4 Glucose Ql (U) Negative Neg mg/dL [facility] Protein.monoclonal (U) [Mass/Vol] Negative Neg mg/dL [facility] OBSTETRIC ULTRASOUND WHIon 1 11-02-2022 [facility] CBC panel Auto (Bld)on 07-30 Erythrocyte distribution width (RBC) [Ratio] 12.8 % 11.5 - 15.0 % [facility] Hematocrit (Bld) [Volume fraction] 33.8 % Low 36.0 - 46.0 % [facility] Hemoglobin (Bld) [Mass/Vol] 11.2 g/dL Low 11.5 - 15.5 g/dL [facility] MCH (RBC) [Entitic mass] 29.7 pg 26.0 - 34.[address] [facility] MCHC (RBC) [Mass/Vol] 33.1 g/dL 30.5 - 36.0 g/ dL [facility] MCV (RBC) [Entitic vol] 89.7 fL 80.0 - 100.[address] [facility] Nucleated RBC (Bld) [#/Vol] <0.01 k/uL [facility] Platelet mean volume (Bld) [Entitic vol] 10.6 fL 9.0 - 12.[address] [facility] Platelets (Bld) [#/Vol] 219 10*3/uL 150 - 400 k/uL [facility] RBC (Bld) [#/Vol] 3.77 10*6/uL Low 3.90 - 5.20 m/uL [facility] WBC (Bld) [#/Vol] 7.95 10*3/uL 3.70 - 11. 00 k/uL [facility] TYPE + SCREEN PRENATALon ABO group Nom (Bld) A [facility] Blood group antibody screen Ql Negative [facility] HIstorical Ab Scr Status Negative [facility] Rh Nom (Bld) Negative [facility] Type and Screen Expiration 08/02/2023 23:59 [facility] Vital Signs Date Time Vital Sign Value Performing Clinician Faci lity 06-11-2025 11:[id number] Body mass index (BMI) [Ratio] 25.34 kg/m2 Yi Cobos APRN.CNM Work Phone: [facility] 06-11-2025 11:13040 Body weight 66.68 kg Yi Cobos APRN.CNM Work Phone: [facility] 06-11-2025 11:[id number] Diastolic blood pressure 58 mm[Hg] Yi Plotts GAS FITTER.CNM Work Phone: [facility] 06-11-2025 11:13-0400 Systolic blood pressure 100 mm[Hg] Yi Plotts GAS FITTER.CNM Work Phone: [facility] 05-21-2025 07:06-0400 Body mass index (BMI) [Ratio] 24.48 kg/m2 Ben Haury GAS FITTER.COUNTERSINKER Work Phone: [facility] 05-21-2025 07:06-0400 Body weight 64.41 kg Ben Haury GAS FITTER.COUNTERSINKER Work Phone: [facility] 05-21-2025 07:06-0400 Diastolic blood pressure 64 mm[Hg] Ben Haury GAS FITTER.COUNTERSINKER Work Phone: [facility] 05-21-2025 07:06-0400 Systolic blood pressure 98 mm[Hg] Ben Haury GAS FITTER.COUNTERSINKER Work Phone: [facility] 05-05-2025 15:49-0400 Body mass index (BMI) [Ratio] 24.31 kg/m2 Ben Haury GAS FITTER.COUNTERSINKER Work Phone: [facility] 05-05-2025 15:49-0400 Body weight 63.96 kg Ben Haury GAS FITTER.COUNTERSINKER Work Phone: [facility] 05-05-2025 15:49-0400 Diastolic blood pressure 58 mm[Hg] Ben Haury GAS FITTER.COUNTERSINKER Work Phone: [facility] 05-05-2025 15:49-0400 Systolic blood pressure 102 mm[Hg] Ben Haury GAS FITTER.COUNTERSINKER Work Phone: [facility] 04-21-2025 15:45-0400 Body mass index (BMI) [Ratio] 23.79 kg/m2 Lia Pruett MD Work Phone: [facility] 04-21-2025 15:45-0400 Body weight 62.6 kg Lia Pruett MD Work Phone: [facility] 04-21-2025 15:45-0400 Diastolic blood pressure 60 mm[Hg] Lia Pruett MD Work Phone: [facility] 04-21-2025 15:45-0400 Systolic blood pressure 100 mm[Hg] Lia Pruett MD Work Phone: [facility] 03-24-2025 15:26-0400 Body mass index (BMI) [Ratio] 22.76 kg/m2 Yi Plotts GAS FITTER.CNM Work Phone: [facility] 03-24-2025 15:26-0400 Body weight 59.88 kg Yi Plotts GAS FITTER.CNM Work Phone: [facility] 03-24-2025 15:26-0400 Diastolic blood pressure 64 mm[Hg] Yi Plotts GAS FITTER.CNM Work Phone: [facility] 03-24-2025 15:26-0400 Systolic blood pressure 98 mm[Hg] Yi Plotts GAS FITTER.CNM Work Phone: [facility] 01-20-2025 13:47-0400 Body height 162.2 cm Ben Haury GAS FITTER.COUNTERSINKER Work Phone: [facility] 01-20-2025 13:47-0400 Body mass index (BMI) [Ratio] 21.72 kg/m2 Ben Haury GAS FITTER.COUNTERSINKER Work Phone: [facility] 01-20-2025 13:47-0400 Body weight 57.15 kg Ben Haury GAS FITTER.COUNTERSINKER Work Phone: [facility] 01-20-2025 13:47-0400 Diastolic blood pressure 60 mm[Hg] Ben Haury GAS FITTER.COUNTERSINKER Work Phone: [facility] 01-20-2025 13:47-0400 Systolic blood pressure 104 mm[Hg] Ben Haury GAS FITTER.COUNTERSINKER Work Phone: [facility] 03-09-2024 09:59-0400 Body mass index (BMI) [Ratio] 21.37 kg/m2 Ann Ceferino GAS FITTER.COUNTERSINKER Work Phone: [facility] 03-09-2024 09:59-0400 Body weight 60.06 kg Ann Ceferino GAS FITTER.COUNTERSINKER Work Phone: [facility] 03-09-2024 09:59-0400 Diastolic blood pressure 62 mm[Hg] Ann [place] GAS FITTER.COUNTERSINKER Work Phone: [facility] 03-09-2024 09:59-0400 Systolic blood pressure 100 mm[Hg] Ann Ceferino GAS FITTER.COUNTERSINKER Work Phone: [facility] 01-28-2024 16:00-0400 Body temperature 97.2 [degF] [facility] 01-28-2024 16:00-0400 Diastolic blood pressure 67 mm[Hg] [facility] 01-28-2024 16:00-0400 Heart rate 71 /min [facility] 01-28-2024 16:00-0400 Respiratory rate 16 /min [facility] 01-28-2024 16:00-0400 SaO2% (BldA) [Mass fraction] 97 % [facility] 01-28-2024 16:00-0400 Systolic blood pressure 100 mm[Hg] [facility] 01-27-2024 09:58-0400 Body height 167.64 cm [facility] 01-27-2024 09:58-0400 Body mass index (BMI) [Ratio] 25.3 kg/m2 [facility] 01-27-2024 09:58-0400 Body weight 71.21 kg [facility] 01-21-2024 10:34-0400 Body weight 69.31 kg Kale Zambrano MD Work Phone: [facility] 01-21-2024 10:34-0400 Diastolic blood pressure 74 mm[Hg] Kale Zambrano MD Work Phone: [facility] 01-21-2024 10:34-0400 Systolic blood pressure 110 mm[Hg] Kale Zambrano MD Work Phone: [facility] 01-17-2024 08:46-0400 Body weight 68.77 kg Yi Cobos GAS FITTER.CNM Work Phone: [facility] 01-17-2024 08:46-0400 Diastolic blood pressure 74 mm[Hg] Yi Cobos GAS FITTER.CNM Work Phone: [facility] 01-17-2024 08:46-0400 Systolic blood pressure 108 mm[Hg] Yi Cobos GAS FITTER.CNM Work Phone: [facility] 01-10-2024 10:49-0400 Body weight 68.95 kg Dayan Mcwilliams MD Work Phone: [facility] 01-10-2024 10:49-0400 Diastolic blood pressure 62 mm[Hg] Dayan Mcwilliams MD Work Phone: [facility] 01-10-2024 10:49-0400 Systolic blood pressure 100 mm[Hg] Dayan Mcwilliams MD Work Phone: [facility] 01-01-2024 08:26-0400 Body weight 67.59 kg Tahira Clayton MD Work Phone: [facility] 01-01-2024 08:26-0400 Diastolic blood pressure 62 mm[Hg] Tahira Clayton MD Work Phone: [facility] 01-01-2024 08:26-0400 Systolic blood pressure 96 mm[Hg] Tahira Clayton MD Work Phone: [facility] 12-24-2023 08:11-0400 Body weight 67.13 kg Lia Pruett MD Work Phone: [facility] 12-24-2023 08:11-0400 Diastolic blood pressure 62 mm[Hg] Lia Pruett MD Work Phone: [facility] 12-24-2023 08:11-0400 Systolic blood pressure 100 mm[Hg] Lia Pruett MD Work Phone: [facility] 11-27-2023 09:20-0500 Body weight 65.32 kg Yi Plotts GAS FITTER.CNM Work Phone: [facility] 11-27-2023 09:20-0500 Diastolic blood pressure 62 mm[Hg] Yi Plotts GAS FITTER.CNM Work Phone: [facility] 11-27-2023 09:20-0500 Systolic blood pressure 110 mm[Hg] Yi Plotts GAS FITTER.CNM Work Phone: [facility] 09-02-2023 14:50-0500 Body weight 63.05 kg Chasity Russell GAS FITTER.CNM Work Phone: [facility] 09-02-2023 14:50-0500 Diastolic blood pressure 62 mm[Hg] Chasity Russell GAS FITTER.CNM Work Phone: [facility] 09-02-2023 14:50-0500 Systolic blood pressure 98 mm[Hg] Chasity Urssell GAS FITTER.CNM Work Phone: [facility] 09-02-2023 14:04-0500 Body weight 63.05 kg Ob Ultrasound Work Phone: [facility] 07-30-2023 15:18-0400 Body height 167.6 cm Yi Plotts GAS FITTER.CNM Work Phone: [facility] 07-30-2023 15:18-0400 Body weight 58.15 kg Yi Plotts GAS FITTER.CNM Work Phone: [facility] 07-30-2023 15:18-0400 Diastolic blood pressure 66 mm[Hg] Yi Plotts GAS FITTER.CNM Work Phone: [facility] 07-30-2023 15:18-0400 Systolic blood pressure 104 mm[Hg] Yi Plotts GAS FITTER.CNM Work Phone: [facility] 11-27-2022 11:17-0500 Body temperature 98.1 [degF] Carlton Watt GAS FITTER.COUNTERSINKER Work Phone: [facility] 11-27-2022 11:17-0500 Body weight 56.06 kg Carlton Watt GAS FITTER.COUNTERSINKER Work Phone: [facility] 11-27-2022 11:17-0500 Diastolic blood pressure 64 mm[Hg] Carlton Watt GAS FITTER.COUNTERSINKER Work Phone: [facility] 11-27-2022 11:17-0500 Heart rate 86 /min Carlton Watt GAS FITTER.COUNTERSINKER Work Phone: [facility] 11-27-2022 11:17-0500 Respiratory rate 16 /min Carlton Watt GAS FITTER.COUNTERSINKER Work Phone: [facility] 11-27-2022 11:17-0500 SaO2% (BldA) [Mass fraction] 99 % Carlton Watt GAS FITTER.COUNTERSINKER Work Phone: [facility] 11-27-2022 11:17-0500 Systolic blood pressure 102 mm[Hg] Carlton Watt GAS FITTER.COUNTERSINKER Work Phone: [facility] Encounters Encounter Date Encounter Type Care Provider Facility Start: 07-27-2025 ambulatory No Primary Car e Physician Facility:[facility] Start: 07-21-2025 End: 07-21-2025 ambulatory DAYAN MCWILLIAMS Facility:[facility] Start: 07-13-2025 End: 07-13-2025 ambulatory KALE ZAMBRANO Facility:[facility] Start: 07-06-2025 End: 07-06-2025 ambulatory KALE ZAMBRANO Facility:[facility] Start: 06-25-2025 End: 06-25-2025 ambulatory DAYAN MCWILLIAMS Facility:[facility] Start: 06-11-2025 End: 06-11-2025 Patient encounter procedure Yi Cobos GAS FITTER.CNAlysha Work Phone: OB/Gynecology Comment on above: Supervision of high risk in third trimester (HCC) (Primary Dx); Short interval between pregnancies affecting in third trimester, antepartum (HCC); 33 weeks gestation of (HCC); Rh negative state in antepartum period (HCC) Start: 06-11-2025 End: 06-11-2025 ambulatory YI COBOS Facility:[facility] Start: 05-21-2025 End: 05-21-2025 Patient encounter procedure Ben Marcel GARDINER Work Phone: OB/Gynecology Comment on above: Supervision of high risk in third trimester (HCC) (Primary Dx); 30 weeks gestation of (HCC); Short interval between pregnancies affecting in third trimester, antepartum (HCC); Rh negative state in antepartum period (HCC) Start: 05-21-2025 End: 05-21-2025 ambulatory BENMARIAH AGBRAYAN Facility:[facility] Start: 05-05-2025 End: 05-05-2025 Patient encounter procedure Ben Agbrayan GARDINER Work Phone: OB/Gynecology Comment on above: Supervision of high risk in third trimester (HCC) (Primary Dx); 28 weeks gestation of (HCC); Short interval between pregnancies affecting in third trimester, antepartum (HCC); Rh negative state in antepartum period (HCC) Start: 05-05-2025 End: 05-05-2025 ambulatory BEN DANNABRAYAN Facility:[facility] Start: 04-21-2025 End: 04-21-2025 Patient encounter procedure Lia Pruett MD Work Phone: OB/Gynecology Comment on above: Supervision of high risk in second trimester (HCC) (Primary Dx); Short interval between pregnancies affecting in second trimester, antepartum (HCC); 26 weeks gestation of (HCC) Start: 04-21-2025 End: 04-21-2025 ambulatory LIA PRUETT Facility:[facility] Start: 03-24-2025 End: 03-24-2025 ambulatory YI COBOS Facility:[facility] Start: 03-24-2025 End: 03-24-2025 Patient encounter procedure Yi Cobos APRN.CNM Work Phone: OB/Gynecology Comment on above: Screening for diabet es mellitus (Primary Dx); Encounter for supervision of normal first in second trimester (HCC); 22 weeks gestation of (HCC); Rh negative state in antepartum period (HCC) Start: 02-24-2025 End: 02-24-2025 ambulatory BEN ROD Facility:[facility] Start: 01-21-2025 End: 03-23-2025 Follow-up encounter Ben Marcel GARDINER Work Phone: OB/Gynecology Start: 01-20-2025 End: 01-20-2025 Patient encounter procedure Ben Marcel ATKINSONCOUNTERSINKER Work Phone: OB/Gynecology Comment on above: Encounter for superv ision of other normal in first trimester (HCC) (Primary Dx); with uncertain dates in first trimester (HCC); Screen for STD (sexually transmitted disease); Rh negative state in antepartum period ([facility]) Start: 01-20-2025 End: 01-20-2025 ambulatory BEN ROD Facility:[facility] Start: 01-19-2025 End: 01-19-2025 Telephone encounter Ben Rod APRN.COUNTERSINKER Work Phone: OB/Gynecology Start: 03-09-2024 End: 03-09-2024 Patient encounter procedure Ann De La Vega GAS FITTER.COUNTERSINKER Work Phone: OB/Gynecology Comment on above: 6 weeks f ollow-up (Primary Dx) Start: 01-27-2024 ambulatory Dayan nevarez MD Work Phone: OB/Gynecology Comment on above: Ob Delivery Note Start: 01-27-2024 End: 01-28-2024 [facility] Work Phone: Start: 01-21-2024 End: 01-21-2024 Patient encounter procedure Kale Zambrano MD Work Phone: OB/Gynecology Comment on above: 39 weeks gestation o f (Primary Dx); Anemia during in third trimester; Encounter for supervision of normal first in third trimester Start: 01-17-2024 End: 01-17-2024 Patient encounter procedure Yi Cobos APRN.CNM Work Phone: OB/Gynecology Comment on above: 39 weeks gestation o f (Primary Dx); Anemia during in third trimester; Encounter for supervision of normal first in third trimester Start: 01-10-2024 End: 01-10-2024 Office outpatient visit 15 minutes Dayan Mcwilliams MD Work Phone: OB/Gynecology Comment on above: 38 weeks gestation o f (Primary Dx); Anemia during in third trimester; Encounter for supervision of normal first in third trimester Start: 01-08-2024 ambulatory [facility] [place] Comment on above: Population Health Na vigation Outreach (OB/PEDS ) Start: 01-01-2024 End: 01-01-2024 Patient encounter procedure Tahira Clayton MD Work Phone: OB/Gynecology Comment on above: 37 weeks gestation o f (Primary Dx); Anemia during in third trimester; Encounter for supervision of normal first in third trimester Start: 12-24-2023 End: 12-24-2023 Patient encounter procedure Lia Pruett MD Work Phone: OB/Gynecology Comment on above: Anemia during pregna ncy in third trimester (Primary Dx); Encounter for supervision of normal first in third trimester; 35 weeks gestation of Start: 11-27-2023 End: 11-27-2023 Patient encounter procedure Yi Cobos APRN.CNM Work Phone: OB/Gynecology Comment on above: 32 weeks gestation o f (Primary Dx); Encounter for related examination in third trimester; Encounter for supervision of normal first in third trimester; GBS bacteriuria Start: 09-02-2023 End: 09-02-[address] [facility] Work Phone: OB/Gynecology Comment on above: Encounter for anatomic survey (Primary Dx); Late care affecting , antepartum; 19 weeks gestation of ; Choroid plexus cyst, , affecting care of mother, antepartum, single gestation 19 weeks gestation o f (Primary Dx); Late care affecting , antepartum; Choroid plexus cyst, , affecting care of mother, antepartum, single gestation Start: 08-14-2023 Orders Only Yi peres APRN.CNAlysha Work Phone: OB/Gynecology Comment on above: Choroid plexus cyst of fetus affecting care of mother, antepartum, single or unspecified fetus (Primary Dx) Start: 07-30-2023 End: 07-30-2023 Patient encounter procedure Yi Cobos APRN.CNM Work Phone: OB/Gynecology Comment on above: Late care a ffecting , antepartum (Primary Dx); 14 weeks gestation of Start: 07-25-2023 End: 07-25-2023 Nursing evaluation of patient and report [facility] Work Phone: OB/Gynecology Comment on above: Late care a ffecting , antepartum (Primary Dx) Start: 11-27-2022 End: 11-27-2022 Patient encounter procedure Carlton Watt APRN.COUNTERSINKER [facility] Phone[facility] Comment on above: Sore throat (Primary Dx); Strep throat Procedures Date Procedure Procedure Detail Performing Clinician Start: 06-11-2025 Urnls dip stick/tabl et rgnt non-auto w/o micrscp Yi Cobos APRN.CNAlysha Work Phone: Start: 05-05-2025 Antibody screen BEN TAVAREZ Comment on above: Order Comment: Speci men Type: BLOOD SPECIMEN Ordering Facility: [facility] Address: [address] [place] [address] Performed By: #### T SPN #### [facility] CLIA [id number] [address] [place] [address] OF [place] Start: 01-20-2025 Antibody screen BEN TAVAREZ Comment on above: Order Comment: Speci men Type: BLOOD SPECIMEN Ordering Facility: [facility] Address: [address] [place] [address] Performed By: #### T SPN #### [facility] CLIA [id number] [address] [place] [address] [place] Start: 01-20-2025 Us uterus limited 1/> fetuses Ben Rod APRN.COUNTERSINKER Work Phone: Start: 01-21-2024 URINE OB DIP B/O Kale Zambrano MD Work Phone: Start: 01-17-2024 URINE OB DIP B/O Sina Cobos GAS FITTER.CNM Work Phone: Start: 01-10-2024 URINE OB DIP B/O Fallon Mcwilliams MD Work Phone: Start: 01-01-2024 URINE OB DIP B/O Monica Clayton MD Work Phone: Start: 12-24-2023 URINE OB DIP B/O Lia Pruett MD Work Phone: Start: 11-27-2023 URINE OB DIP B/O Sina Cobos GAS FITTER.CNM Work Phone: Start: 09-02-2023 Us preg uterus after 1st trimest 1/ gestation Yi Cobos GAS FITTER.CNM Work Phone: Plan of Treatment Date Care Activity Detail Author Start: 07-30-2026 Pap Testing Pap Testing [facility] Start: 07-30-2026 Screening for malign ant neoplasm of cervix [facility] Start: 06-25-2025 End: 06-25-2025 Patient encounter procedure 06/25/2025 1:50 PM EDT Routine Office Visit OB/Gynecology [address] [place] [id number] Dayan Mcwilliams MD [address] [place] [id number] OB OB/Gynecology Comment on above: OB Start: 06-07-2025 Influenza vaccination [facility] Start: 06-07-2025 RSV Vaccine (1 - Ris k 1-dose series) RSV Vaccine (1 - Risk 1-dose series) [facility] Start: 06-04-2025 End: 06-04-2025 Patient encounter procedure 06/04/2025 2:30 PM EDT Routine Office Visit OB/Gynecology [address] [place] [id number] Yi Cobos APRN.CN [address] [place] [address] OB OB/Gynecology Comment on above: OB Start: 05-21-2025 End: 05-21-2025 Patient encounter procedure 05/21/2025 7:00 AM EDT Routine Office Visit OB/Gynecology [address] [place] [address] Ben Rod APRN.COUNTERSINKER [address] [place] [address] OB OB/Gynecology Comment on above: OB Start: 05-05-2025 End: 05-05-2025 Patient encounter procedure 05/05/2025 3:45 PM EDT Routine Office Visit OB/Gynecology [address] [place] [address] Ben Rod APRN.COUNTERSINKER [address] [place] [address] OB OB/Gynecology Comment on above: OB Start: 05-05-2025 End: 05-05-2025 ambulatory 05/05/2025 3:30 PM EDT Results Only [place] [facility] [address] [place] [address] [facility] Comment on above: Glucose Start: 05-05-2025 End: 08-04-2025 TYPE + SCREEN [facility] Work Phone: Comment on above: Expected: 05/05/2025 , Expires: 08/04/2025 Start: 04-21-2025 End: 04-21-2025 Patient encounter procedure 04/21/2025 3:50 PM EDT Routine Office Visit OB/Gynecology [address] [place] [address] Lia Ureña MD [address] [place] [address] OB OB/Gynecology Comment on above: OB Start: 03-24-2025 End: 03-24-2025 Patient encounter procedure 03/24/2025 3:15 PM EDT Routine Office Visit OB/Gynecology [address] [place] [address] Yi Cobos APRN.CN [address] [place] [address] OB OB/Gynecology Comment on above: OB Start: 03-24-2025 End: 06-23-2025 ANEMIA REFLEX PANEL ANEMIA REFLEX PANEL Lab Routine Encounter for supervision of normal first in second trimester (HCC) Expected: 03/24/2025, Expires: 06/23/2025 [facility] Comment on above: Expected: 03/24/2025 , Expires: 06/23/2025 Start: 03-24-2025 End: 03-24-2026 GESTATIONAL GLUCOSE SCREEN, 1-HOUR, 50 GRAM, NON-FASTING GESTATIONAL GLUCOSE SCREEN, 1-HOUR, 50 GRAM, NON-FASTING Lab Routine Screening for diabetes mellitus Expected: 03/24/2025, Expires: 03/24/2026 [facility] Work Phone: Comment on above: Expected: 03/24/2025 , Expires: 03/24/2026 Start: 03-24-2025 End: 03-24-2026 SYPHILIS TREPONEMAL W/REFLEX SYPHILIS TREPONEMAL W/REFLEX Lab Routine Encounter for supervision of normal first in second trimester (HCC) Expected: 03/24/2025, Expires: 03/24/2026 [facility] Comment on above: Expected: 03/24/2025 , Expires: 03/24/2026 Start: 02-24-2025 End: 02-24-2025 Patient encounter procedure [facility] Comment on above: Anatomy OB Start: 02-18-2025 End: 02-18-2025 Patient encounter procedure 02/18/2025 2:20 PM EDT Routine Office Visit OB/Gynecology [address] [place] [id number] Kale Zambrano MD [address] [place] [address] New OB Patient LMP [id number] OB/Gynecology Comment on above: New OB Edna ent LMP [id number] Start: 01-20-2025 End: 04-21-2025 ANEMIA REFLEX PANEL [facility] Work Phone: Comment on above: Expected: 01/20/2025 , Expires: 04/21/2025 Start: 01-20-2025 End: 04-21-2025 Hemoglobin A1c in Blood [facility] Comment on above: Expected: 01/20/2025 , Expires: 04/21/2025 Start: 01-20-2025 End: 04-21-2025 Hepatitis B virus surface Ag [Presence] in Serum [facility] Comment on above: Expected: 01/20/2025 , Expires: 04/21/2025 Start: 01-20-2025 End: 04-21-2025 HIV 1+2 Ab [Presence] in Serum or Plasma by Immunoassay [facility] Comment on above: Expected: 01/20/2025 , Expires: 04/21/2025 Start: 01-20-2025 End: 01-20-2026 OBSTETRIC ULTRASOUND WHI OBSTETRIC ULTRASOUND [facility]I Anc Imaging Routine Encounter for supervision of other normal in first trimester (HCC) with uncertain dates in first trimester (HCC) Expected: 01/20/2025, Expires: 01/20/2026 [facility] Comment on above: Expected: 01/20/2025 , Expires: 01/20/2026 Start: 01-20-2025 End: 04-21-[address] [facility] Comment on above: Expected: 01/20/2025 , Expires: 04/21/2025 Start: 01-20-2025 End: 04-21-2025 SYPHILIS TREPONEMAL W/REFLEX [facility] Comment on above: Expected: 01/20/2025 , Expires: 04/21/2025 Start: 01-20-2025 End: 04-21-2025 TYPE + SCREEN [facility] Comment on above: Expected: 01/20/2025 , Expires: 04/21/2025 Start: 01-20-2025 End: 01-20-2025 Patient encounter procedure 01/20/2025 1:45 PM EDT Initial Office Visit OB/Gynecology [address] [place] [address] Ben Rod APRN.COUNTERSINKER [address] [place] [address] New OB Patient LMP [id number] OB/Gynecology Comment on above: New OB Edna ent LMP [id number] Start: 07-30-2024 Chlamydia Screening () Chlamydia Screening () [facility] Start: 07-30-2024 GC (Gonorrhea) Scree samia () GC (Gonorrhea) Screening () [facility] Start: 07-30-2024 Screening for Chlamy zane trachomatis Chlamydia Screening () [facility] Start: 06-07-2024 Covid-19 Vaccine ( season) Covid-19 Vaccine ( season) [facility] Start: 06-07-2024 Influenza vaccination [facility] Start: 01-28-2024 Patient discharge [facility] Start: 01-27-2024 Administration of bl ood product [facility] Start: 01-27-2024 Administration of medication [facility] Start: 01-27-2024 Application of ice collar, cap or bag [facility] Start: 01-27-2024 Catheterization of vein [facility] Start: 01-27-2024 Introduction of urin vasquez catheter [facility] Start: 01-27-2024 Measuring intake and output [facility] Start: 01-27-2024 Notification of physician [facility] Start: 01-27-2024 Procedure discontinued [facility] Start: 01-27-2024 Provision of activit y privileges [facility] Start: 01-27-2024 Vital signs measurements [facility] Start: 01-27-2024 Documentation procedure [facility] Start: 01-27-2024 End: 01-27-2024 [facility] Start: 01-27-2024 Admission procedure [facility] Start: 01-27-2024 Verification routine [facility] Start: 10-07-2023 Behavioral Health Screening Behavioral Health Screening [facility] Start: 10-07-2023 Depression Assessment Depression Ass essment [facility] Start: 08-14-2023 End: 08-14-2024 OBSTETRIC ULTRASOUND WHI OBSTETRIC ULTRASOUND WHI Anc Imaging Routine Choroid plexus cyst of fetus affecting care of mother, antepartum, single or unspecified fetus Expected: 08/14/2023, Expires: 08/14/2024 [facility] Work Phone: Comment on above: Expected: 08/14/2023 , Expires: 08/14/2024 Start: 07-30-2023 End: 10-29-2023 Hepatitis B virus surface Ag [Presence] in Serum [facility] Work Phone: Comment on above: Expected: 07/30/2023 , Expires: 10/29/2023 Start: 07-30-2023 End: 10-29-2023 Hepatitis C virus Ab [Presence] in Serum [facility] Work Phone: Comment on above: Expected: 07/30/2023 , Expires: 10/29/2023 Start: 07-30-2023 End: 10-29-2023 HIV 1+2 Ab [Presence] in Serum or Plasma by Immunoassay [facility] Work Phone: Comment on above: Expected: 07/30/2023 , Expires: 10/29/2023 Start: 07-30-2023 End: 07-30-2024 OBSTETRIC ULTRASOUND WHI OBSTETRIC ULTRASOUND WHI Anc Imaging Routine Late care affecting , antepartum 14 weeks gestation of Expected: 07/30/2023, Expires: 07/30/2024 [facility] Work Phone: Comment on above: Expected: 07/30/2023 , Expires: 07/30/2024 Start: 07-30-2023 End: 10-29-2023 RUBELLA IGG AB [facility] Work Phone: Comment on above: Expected: 07/30/2023 , Expires: 10/29/2023 Start: 07-30-2023 End: 10-29-2023 SYPHILIS TOTAL W/REFLEX [facility] Work Phone: Comment on above: Expected: 07/30/2023 , Expires: 10/29/2023 Start: 06-07-2023 Covid-19 Vaccine ( season) Covid-19 Vaccine ( season) [facility] Start: 06-07-2023 Influenza vaccination Influenza Vacc ine (#1) [facility] Start: 10-07-2022 DEPRESSION ASSESSMENT DEPRESSION ASS ESSMENT [facility] Start: 06-07-2022 Influenza vaccination INFLUENZA (#1) [facility] Start: 2021 PAP TESTING PAP TESTING [facility] Start: 2019 Hepatitis B Vaccine (1 of 3 - 19+ 3-dose series) Hepatitis B Vaccine (1 of 3 - 19+ 3-dose series) [facility] Start: 2018 Anxiety Screening Anxiety Screening [facility] Start: 2018 CHLAMYDIA SCREENING (18-24) CHLAMYDIA SCREENING (18-24) [facility] Start: 2018 Depression Screening Depression Scre ening [facility] Start: 2018 GC (GONORRHEA) SCREE SAMIA (18-24) GC (GONORRHEA) SCREENING (18-24) [facility] Start: 2018 HEPATITIS C SCREENING HEPATITIS C SC REENING [facility] Start: 2018 HIV SCREENING HIV SCREENING [facility] Start: 2016 Meningococcal B Vacc ine: Consider Based On Risk (1 of 2 - Patient Seeks Protection) Meningococcal B Vaccine: Consider Based On Risk (1 of 2 - Patient Seeks Protection) [facility] Start: 2015 HPV Vaccine (1 - 3-d ose series) HPV Vaccine (1 - 3-dose series) [facility] Start: 2014 PEDS TO ADULT TRANSI TION ANNUAL ASSESSMENT PEDS TO ADULT TRANSITION ANNUAL ASSESSMENT [facility] Start: 2012 PEDS TO ADULT TRANSI TION INITIAL DISCUSSION PEDS TO ADULT TRANSITION INITIAL DISCUSSION [facility] Start: 2011 HPV VACCINE (1 - 2-d ose series) HPV VACCINE (1 - 2-dose series) [facility] Start: [address] 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 Start: 2009 HPV Vaccine (1 - 2-d ose series) HPV Vaccine (1 - 2-dose series) [facility] Start: 2000 COVID-19 VACCINE (#1) COVID-19 VACCI NE (#1) [facility] Start: 2000 HEPATITIS B (1 of 3 - 3-dose series) HEPATITIS B (1 of 3 - 3-dose series) [facility] Start: 2000 Hepatitis B Vaccine (1 of 3 - 3-dose series) Hepatitis B Vaccine (1 of 3 - 3-dose series) [facility] Bacteria identified in Urine by Culture URINE CULTURE Microbiology Routine Late care affecting , antepartum 14 weeks gestation of 07/30/2023 4:08 PM EDT [facility] Work Phone: Bacteria identified in Urine by Culture BACTERIAL CULTURE, URINE Microbiology Routine Encounter for supervision of other normal in first trimester (HCC) with uncertain dates in first trimester ([facility]) 01/20/2025 2:[address] [facility] Chlamydia trachomatis+Neisseria gonorrhoeae DNA [Presence] in Unspecified specimen by ELENA with probe detection GONORRHEA/CHLAMYDIA NAAT Lab Routine Late care affecting , antepartum 14 weeks gestation of 07/30/2023 4:08 PM EDT [facility] Work Phone: Chlamydia trachomatis+Neisseria gonorrhoeae DNA [Presence] in Unspecified specimen by ELENA with probe detection GONORRHEA/CHLAMYDIA NAAT Lab Routine Encounter for supervision of other normal in first trimester (HCC) with uncertain dates in first trimester (HCC) Screen for STD (sexually transmitted disease) 01/20/2025 2:[address] [facility] PAP TEST PAP TEST Lab Rou arnold Late care affecting , antepartum 14 weeks gestation of 07/30/2023 4:08 PM T [facility] Work Phone: Patient Education After a Vaginal [facility] Work Phone: Patient referral [facility] Work Phone: STREP A MOLECULAR (POC) STREP A MOLECULAR (POC) Microbiology Routine Sore throat Ordered: 11/27/2022 [facility] Work Phone: Comment on above: Ordered: 11/27/2022 TRICHOMONAS VAGINALI S NAAT TRICHOMONAS VAGINALIS NAAT Lab Routine Encounter for supervision of other normal in first trimester (HCC) with uncertain dates in first trimester (HCC) Screen for STD (sexually transmitted disease) 01/20/2025 2:[address] [facility] URINE OB DIP B/O URINE OB DIP B/ O Lab Routine 19 weeks gestation of Late care affecting , antepartum Ordered: 09/02/2023 [facility] Work Phone: Comment on above: Ordered: 09/02/2023 [facility] c [facility] c [facility] c [facility] Immunizations Immunization Date Immunization Notes Care Provider Ye metzger 05-05-2025 RHO(D) immune globul in- IV or IM Ben Rod GAS FITTER.COUNTERSINKER Work Phone: [facility] 10-30-2023 RHO(D) immune globul in- IV or IM Yi Cobos GAS FITTER.CNM Work Phone: [facility] 03-30-2010 pneumococcal conjuga te vaccine, 13 valent Carlton Watt GAS FITTER.COUNTERSINKER Work Phone: [facility] 06-20-2005 poliovirus vaccine, inactivated Carlton Watt GAS FITTER.COUNTERSINKER Work Phone: [facility] 05-08-2005 measles, mumps and rubella virus vaccine Carlton Watt GAS FITTER.COUNTERSINKER Work Phone: [facility] 01-16-2005 diphtheria, tetanus toxoids and acellular pertussis vaccine Carlton Watt GAS FITTER.COUNTERSINKER Work Phone: [facility] 05-26-2004 poliovirus vaccine, inactivated Carlton Watt GAS FITTER.COUNTERSINKER Work Phone: [facility] 04-25-2004 poliovirus vaccine, inactivated [facility] GAS FITTER.COUNTERSINKER Work Phone: [facility] 03-14-2004 poliovirus vaccine, inactivated [facility] GAS FITTER.COUNTERSINKER Work Phone: [facility] 08-16-2003 diphtheria, tetanus toxoids and acellular pertussis vaccine [facility] GAS FITTER.COUNTERSINKER Work Phone: [facility] 05-22-2003 measles, mumps and rubella virus vaccine [facility] GAS FITTER.COUNTERSINKER Work Phone: [facility] 12-31-2002 diphtheria, tetanus toxoids and acellular pertussis vaccine [facility] GAS FITTER.COUNTERSINKER Work Phone: [facility] 12-31-2002 haemophilus influenz ae type b vaccine, HbOC conjugate [facility] GAS FITTER.COUNTERSINKER Work Phone: [facility] 04-01-2002 diphtheria, tetanus toxoids and acellular pertussis vaccine [facility] GAS FITTER.COUNTERSINKER Work Phone: [facility] 01-16-2002 diphtheria, tetanus toxoids and acellular pertussis vaccine [facility] GAS FITTER.[facility] Work Phone: [facility] Payers Date Payer Category Payer Self-pay 2022 Private Health Insurance [facility] [employer] [id number] 2022 Unknown [id number] 2022 Unknown [id number] Unknown [facility] [id number] Unknown [facility] PACKAGE PLAN [id number] Unknown [id number] Social History Date Type Detail Facility Start: 01-27-2024 Tobacco smoking stat [facility] Tobacco smoking consumption unknown [facility] Start: 2000 Sex Assigned At Not on file [facility] Start: 07-25-2023 Tobacco smoking stat [facility] Never smoked tobacco [facility] Work Phone: Start: 07-25-2023 Tobacco use and exposure Smokeless tobacco non-user [facility] Work Phone: Start: 07-25-2023 End: 05-21-2025 Alcohol intake Ex-drinker (finding) [facility] Start: 07-01-2023 End: 07-25-2023 History of [address] [facility] Work Phone: Start: 07-01-2023 End: 07-25-[address] [facility] Work Phone: Start: 09-07-2012 Last EPDS Total Score Not on file [facility] The thought of harmi ng myself has occurred to me Never [facility] Work Phone: Start: 07-25-[address] [facility] Start: 07-25-2023 Alcohol Comment [facility] Start: 05-01-2023 [facility] Start: 2000 Sex Assigned At Female W [facility] Goals Date Patient Goal Desired Activity /State Clinical Notes 11-27-2022 to 07-12-2025 Quick Notes - Yi Cobos APRN.CN 06/11/2025 11:35 AM EDTPrenatal Quick Notes - Yi Cobos APRN.CN 06/11/2025 11:35 AM EDTPatient InstructionsPatient Instructions Note Date & Type Note Facility 07-12-2025 Note HNO ID: [id number] Author: MARK KEMP, ? Service: ? 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, verify/est pcp My chart sent Reason for Outreach Medicaid OB/Peds Care Gaps due: N/A Patient Contacted: Unable or unnecessary to reach patient: Unable to reach patient Left message Quinturahart message sent Navigation Signature: Mark Kemp Population Health Navigator July 12, 2025 9:13 AM [facility] 07-12-2025 Note Patient Outreach (NE ABRAHAMAV) MURIEL SWARTZ ([id number]) 1 F Date Time Provider Department 07/12/25 MARK KEMP During your visit today, we recorded the following information about you: Mark Kemp 07/12/2025 9:14 AM Signed POPULATION HEALTH NAVIGATION OUTREACH Action/FYI 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 Problem List As Of Date 07/12/2025 Noted Resolved Late care affecting [O09.30] 07/25/2023 03/09/2024 GBS bacteriuria [R82.71] 08/01/2023 03/09/2024 Choroid plexus cyst, , affecting care of m*08/14/2023 03/09/2024 Anemia during in third trimester [O99*10/31/2023 03/09/2024 Supervision of high risk in third tri*01/20/2025 Rh negative state in antepartum period (HCC) [O*01/20/2025 Short interval between pregnancies affecting pr*05/05/2025 Encounter Status:Closed by MARK KEMP on 07/12/25 [facility] 06-11-2025 Progress note Formatting of t his note might be different from the original. S: Muriel Swartz is a 25 year old female who presents at 33 weeks gestation for a routine visit. Positive movements. Denies headache, visual changes, chest pain, shortness of breath, vaginal bleeding, leakage of fluid, or dysuria. Feeling well, no complaints. O: See flow sheet Gen: No apparent distress Abd: Gravid, non tender S=D ASSESSMENT/PLAN: 1. Supervision of high risk in third trimester 2. Short interval between pregnancies affecting in third trimester, antepartum 3. 33 weeks gestation of - Continue vitamin daily - Opted out of ASA - PTL precautions and kick counts reviewed - RTO 2 weeks or sooner if needed Yi Cobos APRN.CNM [facility] 06-11-2025 Miscellaneous Notes S: Muriel Swartz is a 25 year old female who presents at 33 weeks gestation for a routine visit. Positive movements. Denies headache, visual changes, chest pain, shortness of breath, vaginal bleeding, leakage of fluid, or dysuria. Feeling well, no complaints. O: See flow sheet Gen: No apparent distress Abd: Gravid, non tender S=D ASSESSMENT/PLAN: 1. Supervision of high risk in third trimester 2. Short interval between pregnancies affecting in third trimester, antepartum 3. 33 weeks gestation of - Continue vitamin daily - Opted out of ASA - PTL precautions and kick counts reviewed - RTO 2 weeks or sooner if needed Yi Cobos APRN.CNM documented in this encounter [facility] 06-11-2025 Instructions Amina Guzman MA - 06/11/2025 11:10 AM EDT SEQUENTIAL SCREENINGS The [facility] offers sequential screenings for women who are interested in screenings for chromosomal abnormalities and certain defects during a . The sequential screen combines ultrasound and blood tests to determine the risk of chromosomal abnormalities, including Down's Syndrome (Trisomy 21) and Trisomy 18, as well as open neural tube defects including spina bifida. Ultrasound examination is performed between 11 weeks and 13 weeks gestational age. Blood tests are drawn after the ultrasound and again later in the between 15 and 21 weeks gestational age. Please let your physician know if you are interested in this testing. It will require an appointment with our associate technician. This is not an ultrasound performed by a physician in our office during a routine visit. SIGNS AND SYMPTOMS OF LABOR 1. Contractions every 10 minutes or more often 2. Clear, pink, or brownish fluid (water) leaking from vagina 3. Feeling that baby is pushing down, pressure 4. Low, dull backache 5. Cramps that feel like a period 6. Cramps with or without diarrhea If you notice any of the above symptoms, contact our office at [phone] and ask to speak with a nurse. After hours, you can call doctors registry at [phone] OR call [facility] at [phone] and ask to have the doctor contract consultant paged. If you consider this an emergency, dial [phone]--0 or go to your nearest emergency department. NEED HELP? Are you dealing with a violent or abusive relationship? Are you a victim of rape or sexual assult? Call [facility] ([place]) 24 hour Crisis Hotline: 195.708.2278 or 245-224-7240. MANUAL Your Guide to a Healthy manual is now on-line. Visit [email or web address] to download your free copy documented in this encounter [facility] 05-21-2025 Progress note Formatting of t his note might be different from the original. EH - S: Muriel is a 25 year old female who presents at 30w4d for a routine visit. Feeling movement. Denies headache, visual changes, chest pain, shortness of breath, vaginal bleeding, leakage of fluid, or dysuria. Feeling well, no complaints. O: See flow sheet Gen: No apparent distress Abd: Gravid, nontender, S=D ASSESSMENT/PLAN: 1. Supervision of high risk in third trimester ([facility]) - ICD9: V23.9, ICD10: O09.93 (primary diagnosis) - Continue PNV 2. 30 weeks gestation of ([facility]) - ICD9: V22.2, ICD10: Z3A.30 - Declines LARC - 28 week labs reviewed 3. Short interval between pregnancies affecting in third trimester, antepartum ([facility]) - ICD9: V23.89, ICD10: O09.893 - January 2024 4. Rh negative state in antepartum period ([facility]) - ICD9: 646.83, ICD10: O26.899, Z67.91 - Rhogam given 05/05 PTL precautions and kick counts reviewed. RTO in 2 weeks or sooner as needed. Ben Rod APRN.COUNTERSINKER' [facility] 05-21-2025 Miscellaneous Notes EH - S: Muriel is a 25 year old female who presents at 30w4d for a routine visit. Feeling movement. Denies headache, visual changes, chest pain, shortness of breath, vaginal bleeding, leakage of fluid, or dysuria. Feeling well, no complaints. O: See flow sheet Gen: No apparent distress Abd: Gravid, nontender, S=D ASSESSMENT/PLAN: 1. Supervision of high risk in third trimester ([facility]) - ICD9: V23.9, ICD10: O09.93 (primary diagnosis) - Continue PNV 2. 30 weeks gestation of ([facility]) - ICD9: V22.2, ICD10: Z3A.30 - Declines LARC - 28 week labs reviewed 3. Short interval between pregnancies affecting in third trimester, antepartum ([facility]) - ICD9: V23.89, ICD10: O09.893 - January 2024 4. Rh negative state in antepartum period ([facility]) - ICD9: 646.83, ICD10: O26.899, Z67.91 - Rhogam given 05/05 PTL precautions and kick counts reviewed. RTO in 2 weeks or sooner as needed. Ben Rod APRN.COUNTERSINKER' documented in this encounter [facility] 05-21-2025 Instructions Lian Mcwilliams LPN - 05/21/2025 7:02 AM EDT SEQUENTIAL SCREENINGS The [facility] offers sequential screenings for women who are interested in screenings for chromosomal abnormalities and certain defects during a . The sequential screen combines ultrasound and blood tests to determine the risk of chromosomal abnormalities, including Down's Syndrome (Trisomy 21) and Trisomy 18, as well as open neural tube defects including spina bifida. Ultrasound examination is performed between 11 weeks and 13 weeks gestational age. Blood tests are drawn after the ultrasound and again later in the between 15 and 21 weeks gestational age. Please let your physician know if you are interested in this testing. It will require an appointment with our associate technician. This is not an ultrasound performed by a physician in our office during a routine visit. SIGNS AND SYMPTOMS OF LABOR 1. Contractions every 10 minutes or more often 2. Clear, pink, or brownish fluid (water) leaking from vagina 3. Feeling that baby is pushing down, pressure 4. Low, dull backache 5. Cramps that feel like a period 6. Cramps with or without diarrhea If you notice any of the above symptoms, contact our office at [phone] and ask to speak with a nurse. After hours, you can call doctors registry at [phone] OR call [facility] at [phone] and ask to have the doctor contract consultant paged. If you consider this an emergency, dial 9-1- or go to your nearest emergency department. NEED HELP? Are you dealing with a violent or abusive relationship? Are you a victim of rape or sexual assult? Call [facility] ([place]) 24 hour Crisis Hotline: 197.750.7082 or 171-732-2907. MANUAL Your Guide to a Healthy manual is now on-line. Visit [email or web address] to download your free copy documented in this encounter [facility] 05-05-2025 Note HNO ID: [id number] Author: ARA CRUZ RN Service: ? Author Type: Registered Nurse Type: Progress Notes Filed: 05/05/2025 16:50 Note Text: Muriel Swarzt 25 year old is here for her injection of Rhophylac. Muriel Swartz Antibody Screen (no units) Date Value 01/20/2025 Negative Muriel Swartz is RH Negative Rhophylac was given without incident. See immunizations for details of immunizations administered today. Provider Yi Cobos APRN.CNM was present in office at time of injection Muriel Swartz was given her Rhophylac pocket card. Ara Cruz RN [facility] 05-05-2025 History of Presen t illness Narrative Muriel Swartz 25 year old is here for her injection of Rhophylac. Muriel Swartz Antibody Screen (no units) Date Value 01/20/2025 Negative Muriel Swartz is RH Negative Rhophylac was given without incident. See immunizations for details of immunizations administered today. Provider Yi Cobos APRN.VERNM was present in office at time of injection Muriel Swartz was given her Rhophylac pocket card. Ara Cruz RN documented in this encounter [facility] 05-05-2025 Progress note Formatting of t his note might be different from the original. EH - S: Muriel is a 25 year old female who presents at 28w2d for a routine visit. Feeling movement. Denies headache, visual changes, chest pain, shortness of breath, vaginal bleeding, leakage of fluid, or dysuria. Feeling well, no complaints. O: See flow sheet Gen: No apparent distress Abd: Gravid, nontender, S ASSESSMENT/PLAN: 1. Supervision of high risk in third trimester ([facility]) - ICD9: V23.9, ICD10: O09.93 (primary diagnosis) - Continue PNV 2. 28 weeks gestation of ([facility]) - ICD9: V22.2, ICD10: Z3A.28 - 1 hour GCT, CBC, and RPR today - Rh negative: Rhogam injection today - Declines TDAP - LARC form reviewed. Uncertain. To sign next visit. - Depression screen negative - Opioid screen negative - plan form discussed and given to Muriel - Reviewed how to pre register through [facility] 3. Short interval between pregnancies affecting in third trimester, antepartum ([facility]) - ICD9: V23.89, ICD10: O09.893 - January 2024 4. Rh negative state in antepartum period ([facility]) - ICD9: 646.83, ICD10: O26.899, Z67.91 - Rhogam today PTL precautions and kick counts reviewed. RTO in 2 weeks or sooner as needed. Ben Rod APRN.COUNTERSINKER [facility] 05-05-2025 Miscellaneous Notes EH - S: Muriel is a 25 year old female who presents at 28w2d for a routine visit. Feeling movement. Denies headache, visual changes, chest pain, shortness of breath, vaginal bleeding, leakage of fluid, or dysuria. Feeling well, no complaints. O: See flow sheet Gen: No apparent distress Abd: Gravid, nontender, S<D ASSESSMENT/PLAN: 1. Supervision of high risk in third trimester ([facility]) - ICD9: V23.9, ICD10: O09.93 (primary diagnosis) - Continue PNV 2. 28 weeks gestation of ([facility]) - ICD9: V22.2, ICD10: Z3A.28 - 1 hour GCT, CBC, and RPR today - Rh negative: Rhogam injection today - Declines TDAP - LARC form reviewed. Uncertain. To sign next visit. - Depression screen negative - Opioid screen negative - plan form discussed and given to Muriel - Reviewed how to pre register through [facility] 3. Short interval between pregnancies affecting in third trimester, antepartum ([facility]) - ICD9: V23.89, ICD10: O09.893 - January 2024 4. Rh negative state in antepartum period ([facility]) - ICD9: 646.83, ICD10: O26.899, Z67.91 - Rhogam today PTL precautions and kick counts reviewed. RTO in 2 weeks or sooner as needed. Ben Rod APRN.COUNTERSINKER documented in this encounter [facility] 05-05-2025 Instructions Ben Rod APRN.CNP - 05/05/2025 3:46 PM EDT Please call [phone] to pre-register for your and labor and delivery stay at [facility]. They will want to know your due date, insurance and contact information. This is important to do before you go into labor to help with the efficiency of the admission process when you arrive. Thank you so much! SEQUENTIAL SCREENINGS The [facility] offers sequential screenings for women who are interested in screenings for chromosomal abnormalities and certain defects during a . The sequential screen combines ultrasound and blood tests to determine the risk of chromosomal abnormalities, including Down's Syndrome (Trisomy 21) and Trisomy 18, as well as open neural tube defects including spina bifida. Ultrasound examination is performed between 11 weeks and 13 weeks gestational age. Blood tests are drawn after the ultrasound and again later in the between 15 and 21 weeks gestational age. Please let your physician know if you are interested in this testing. It will require an appointment with our associate technician. This is not an ultrasound performed by a physician in our office during a routine visit. SIGNS AND SYMPTOMS OF LABOR 1. Contractions every 10 minutes or more often 2. Clear, pink, or brownish fluid (water) leaking from vagina 3. Feeling that baby is pushing down, pressure 4. Low, dull backache 5. Cramps that feel like a period 6. Cramps with or without diarrhea If you notice any of the above symptoms, contact our office at [phone] and ask to speak with a nurse. After hours, you can call doctors registry at [phone] OR call [facility] at [phone] and ask to have the doctor contract consultant paged. If you consider this an emergency, dial 9-1-8 or go to your nearest emergency department. NEED HELP? Are you dealing with a violent or abusive relationship? Are you a victim of rape or sexual assult? Call [facility] ([place]) 24 hour Crisis Hotline: 505.971.6273 or 273-770-1311. MANUAL Your Guide to a Healthy manual is now on-line. Visit [email or web address] to download your free copy documented in this encounter [facility] 04-21-2025 Progress note Formatting of t his note might be different from the original. DM-Pt doing well. Denies vaginal Bleeding, Leaking fluid, or regular Contractions. Pt reports good movement Physical Exam: Gen: female in no apparent distress Abd: soft, Gravid. Non tender to palpation. See flow sheet @ 26.2 weeks Assessment & Plan Supervision of high risk in second trimester (HCC) Short interval between pregnancies affecting in second trimester, antepartum (HCC) 26 weeks gestation of (HCC) RTO 2 wks Glucola yanni Tariq MD [facility] 04-21-2025 Miscellaneous Notes DM-Pt doing well. Denies vaginal Bleeding, Leaking fluid, or regular Contractions. Pt reports good movement Physical Exam: Gen: female in no apparent distress Abd: soft, Gravid. Non tender to palpation. See flow sheet @ 26.2 weeks Assessment & Plan Supervision of high risk in second trimester (HCC) Short interval between pregnancies affecting in second trimester, antepartum (HCC) 26 weeks gestation of (HCC) RTO 2 wks Glucola scheduled Lia Tariq MD documented in this encounter [facility] 04-21-2025 Instructions Amina Guzman MA - 04/21/2025 3:43 PM EDT SEQUENTIAL SCREENINGS The [facility] offers sequential screenings for women who are interested in screenings for chromosomal abnormalities and certain defects during a . The sequential screen combines ultrasound and blood tests to determine the risk of chromosomal abnormalities, including Down's Syndrome (Trisomy 21) and Trisomy 18, as well as open neural tube defects including spina bifida. Ultrasound examination is performed between 11 weeks and 13 weeks gestational age. Blood tests are drawn after the ultrasound and again later in the between 15 and 21 weeks gestational age. Please let your physician know if you are interested in this testing. It will require an appointment with our associate technician. This is not an ultrasound performed by a physician in our office during a routine visit. SIGNS AND SYMPTOMS OF LABOR 1. Contractions every 10 minutes or more often 2. Clear, pink, or brownish fluid (water) leaking from vagina 3. Feeling that baby is pushing down, pressure 4. Low, dull backache 5. Cramps that feel like a period 6. Cramps with or without diarrhea If you notice any of the above symptoms, contact our office at [phone] and ask to speak with a nurse. After hours, you can call doctors registry at [phone] OR call [facility] at [phone] and ask to have the doctor contract consultant paged. If you consider this an emergency, dial [phone]- or go to your nearest emergency department. NEED HELP? Are you dealing with a violent or abusive relationship? Are you a victim of rape or sexual assult? Call [facility] ([place]) 24 hour Crisis Hotline: 383.752.3458 or 613-916-7836. MANUAL Your Guide to a Healthy manual is now on-line. Visit [email or web address] to download your free copy documented in this encounter [facility] 03-24-2025 Progress note Formatting of t his note might be different from the original. S: Muriel Swartz is a 24 year old female who presents at 22 weeks gestation for a routine visit. Positive movements. Denies headache, visual changes, chest pain, shortness of breath, vaginal bleeding, leakage of fluid, or dysuria. Feeling well, no complaints. O: See flow sheet Gen: No apparent distress Abd: Gravid, non tender ASSESSMENT/PLAN: 1. Screening for diabetes mellitus 2. Encounter for supervision of normal first in second trimester 3. 22 weeks gestation of 4. Rh negative - Continue vitamin daily - Opted out of ASA - RTO 4 weeks for VALERIE & 6 weeks for GCT/Rhogam Yi Cobos APRN.CNM [facility] 03-24-2025 Miscellaneous Notes S: Muriel Swartz is a 24 year old female who presents at 22 weeks gestation for a routine visit. Positive movements. Denies headache, visual changes, chest pain, shortness of breath, vaginal bleeding, leakage of fluid, or dysuria. Feeling well, no complaints. O: See flow sheet Gen: No apparent distress Abd: Gravid, non tender ASSESSMENT/PLAN: 1. Screening for diabetes mellitus 2. Encounter for supervision of normal first in second trimester 3. 22 weeks gestation of 4. Rh negative - Continue vitamin daily - Opted out of ASA - RTO 4 weeks for VALERIE & 6 weeks for GCT/Rhogam Yi Cobos APRN.CNM documented in this encounter [facility] 03-24-2025 Instructions Burke Garcia MA - 03/24/2025 3:24 PM EDT SEQUENTIAL SCREENINGS The [facility] offers sequential screenings for women who are interested in screenings for chromosomal abnormalities and certain defects during a . The sequential screen combines ultrasound and blood tests to determine the risk of chromosomal abnormalities, including Down's Syndrome (Trisomy 21) and Trisomy 18, as well as open neural tube defects including spina bifida. Ultrasound examination is performed between 11 weeks and 13 weeks gestational age. Blood tests are drawn after the ultrasound and again later in the between 15 and 21 weeks gestational age. Please let your physician know if you are interested in this testing. It will require an appointment with our associate technician. This is not an ultrasound performed by a physician in our office during a routine visit. SIGNS AND SYMPTOMS OF LABOR 1. Contractions every 10 minutes or more often 2. Clear, pink, or brownish fluid (water) leaking from vagina 3. Feeling that baby is pushing down, pressure 4. Low, dull backache 5. Cramps that feel like a period 6. Cramps with or without diarrhea If you notice any of the above symptoms, contact our office at [phone] and ask to speak with a nurse. After hours, you can call doctors registry at [phone] OR call [facility] at [phone] and ask to have the doctor contract consultant paged. If you consider this an emergency, dial 9-1-2 or go to your nearest emergency department. NEED HELP? Are you dealing with a violent or abusive relationship? Are you a victim of rape or sexual assult? Call [facility] ([place]) 24 hour Crisis Hotline: 506.231.4364 or 846-494-0170. MANUAL Your Guide to a Healthy manual is now on-line. Visit [email or web address] to download your free copy documented in this encounter [facility] 01-20-2025 Instructions Larissa Lopez MA - 01/20/2025 1:35 PM EDT Please select the following link to access the [facility] Your Guide to a Healthy . [email or web address] de documented in this encounter [facility] 01-20-2025 Note HNO ID: [id number] Author: BEN ROD APRN.COUNTERSINKER Service: ? Author Type: Nurse Practitioner Type: Progress Notes Filed: 01/20/2025 14:15 Note Text: Social Service Liaison offered: Patient declines. INITIAL OB ASSESSMENT HPI: Muriel is a 24 year old White here to establish Obstetrical Care. Patient's last menstrual period was 04/17/2023 (exact date). from OB Dating Form. was planned Complaints: No OB History Gravida2 Para1 Term1 Preterm0 AB0 Living1 SAB0 IAB0 Ectopic0 Multiple0 Live Births1 Previous history: Prior : never History of 4th degree laceration: No History of shoulder dystocia: No History of Hypertensive disorders including pre-eclampsia or gestational hypertension: No History of gestational diabetes: No Patient's Risk Screening for delivery: Have you had a prior bose between 20w and 36w6d? No How many pregnancies have you had before? 1 Did you have a previous baby with a GBS Infection? No Please select all that apply for any prior : N/A MEDICAL/PSYCHOSOCIAL HISTORY: History of hemorrhage or bleeding concerns: No Thyroid Disease: No History of chronic hypertension: No History of pre-existing diabetes: No No results found for: ABORHD BMI 21.72 kg/(m2) Last Pap: 07/30/2023 normal History of abnormal pap: No Prior treatment for cervical dysplasia: none. Last HPV: n/a History of STDs: None Partner History of STDs: None Did you have a partner with Herpes? No Tobacco use: No E-Cigarette/Vaping Use: No Caffeine use: No Drug use: No Alcohol use: No Multivitamin with Folic acid: Yes Would refuse blood transfusion if medically necessary: No Social Needs: How often does this describe you? I don't have enough money to pay my bills: Never Within the past 12 months, have you worried that your food would run out before you had money to buy more? Never In the past 12 months, has lack of reliable transportation kept you from going to medical appointments or work, or from getting things needed for daily living? Never In the past 12 months, have you had any concerns about having a place to live, or about the condition or quality of your housing? Never Would you like more information on any of the following (please check all that apply)? Not interested Social History: Do you have any history of depression, anxiety, PTSD, or other mood problems? No Do you have a history of abuse or trauma that may impact your experience? No Are you currently employed? No Depression/Anxiety Screening: denies symptoms of depression. OB Depression and Anxiety Screening- This Encounter (since 01/19/2025) Over the past 2 weeks have you felt down, depressed, or hopeless? Negative Over the past two weeks, have you felt little interest or pleasure in doing things?? Negative Feeling nervous, anxious or on edge 0-Not at all Not being able to stop or control worrying 0-Not al all Anxiety Pre-Screening Total (If >/= 3 additional questions will be reviewed) 0 Genetic Screening: Partner present: Yes Patient verbalized knowledge of partner family health history: Yes Do you or your partner have any personal or family history of defects not previously discussed: No Do you have history of a complicated by anomaly, genetic condition, or demise: No Preeclampsia Risk Screening: Screening for prevention of preeclampsia: High risk factors: None Moderate risk ractors: None OB Risk Screening: Completed, no positive findings documented. 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 NIPT offered, uncertain if she would like to proceed with testing. Calling [email or web address] to check on cost and declines testing today. Order placed and can have completed at anytime. Chasity Russell APRN.CNM 08/14/23- Seen on NT US. Needs repeat anatomy in 3 weeks. Yi Cobos APRN.CNM Fracture of upper extremity arm age 3 GBS bacteriuria 08/01/2023 08/01/23- Positive. Will need PCN IV intrapartum. Yi Cobos APRN.CNM Late care affecting (HCC) 07/25/2023 07/25/2023atient's last menstrual period was April 17, 2023. She had a positive test on May 20. She has not had care prior to today. She has an upcoming new OB appointment and a scheduled ultrasound. She declines aneuploidy screening and genetic carrier screening testing. Erma Johnson RN Tooth injury age 11-swimming pool accident-lost 1 front tooth and 1/2 of other Trauma PAST SURGICAL HISTORY Procedure Laterality Date PAST SURGICAL HISTORY OF dental surgery (more content not included)... [facility] 01-20-2025 History of Presen t illness Narrative Social Service Liaison offered: Patient declines. INITIAL OB ASSESSMENT HPI: Muriel is a 24 year old White here to establish Obstetrical Care. Patient's last menstrual period was 04/17/2023 (exact date). from OB Dating Form. was planned Complaints: No OB History Gravida2 Para1 Term1 Preterm0 AB0 Living1 SAB0 IAB0 Ectopic0 Multiple0 Live Births1 Previous history: Prior : never History of 4th degree laceration: No History of shoulder dystocia: No History of Hypertensive disorders including pre-eclampsia or gestational hypertension: No History of gestational diabetes: No Patient's Risk Screening for delivery: Have you had a prior bose between 20w and 36w6d? No How many pregnancies have you had before? 1 Did you have a previous baby with a GBS Infection? No Please select all that apply for any prior : N/A MEDICAL/PSYCHOSOCIAL HISTORY: History of hemorrhage or bleeding concerns: No Thyroid Disease: No History of chronic hypertension: No History of pre-existing diabetes: No No results found for: ABORHD BMI 21.72 kg/(m^2) Last Pap: 07/30/2023 normal History of abnormal pap: No Prior treatment for cervical dysplasia: none. Last HPV: n/a History of STDs: None Partner History of STDs: None Did you have a partner with Herpes? No Tobacco use: No E-Cigarette/Vaping Use: No Caffeine use: No Drug use: No Alcohol use: No Multivitamin with Folic acid: Yes Would refuse blood transfusion if medically necessary: No Social Needs: How often does this describe you? I don't have enough money to pay my bills: Never Within the past 12 months, have you worried that your food would run out before you had money to buy more? Never In the past 12 months, has lack of reliable transportation kept you from going to medical appointments or work, or from getting things needed for daily living? Never In the past 12 months, have you had any concerns about having a place to live, or about the condition or quality of your housing? Never Would you like more information on any of the following (please check all that apply)? Not interested Social History: Do you have any history of depression, anxiety, PTSD, or other mood problems? No Do you have a history of abuse or trauma that may impact your experience? No Are you currently employed? No Depression/Anxiety Screening: denies symptoms of depression. OB Depression and Anxiety Screening- This Encounter (since 01/19/2025) Over the past 2 weeks have you felt down, depressed, or hopeless? Negative Over the past two weeks, have you felt little interest or pleasure in doing things? Negative Feeling nervous, anxious or on edge 0-Not at all Not being able to stop or control worrying 0-Not al all Anxiety Pre-Screening Total (If >/= 3 additional questions will be reviewed) 0 Genetic Screening: Partner present: Yes Patient verbalized knowledge of partner family health history: Yes Do you or your partner have any personal or family history of defects not previously discussed: No Do you have history of a complicated by anomaly, genetic condition, or demise: No Preeclampsia Risk Screening: Screening for prevention of preeclampsia: High risk factors: None Moderate risk ractors: None OB Risk Screening: Completed, no positive findings documented. 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 NIPT offered, uncertain if she would like to proceed with testing. Calling [email or web address] to check on cost and declines testing today. Order placed and can have completed at anytime. Chasity Russell APRN.VERNM 08/14/23- Seen on NT US. Needs repeat anatomy in 3 weeks. Yi Cobos APRN.CNM Fracture of upper extremity arm age 3 GBS bacteriuria 08/01/2023 08/01/23- Positive. Will need PCN IV intrapartum. Yi Cobos APRN.CNM Late care affecting (HCC) 07/25/2023 3Patient's last menstrual period was April 17, 2023. She had a positive test on May 20. She has not had care prior to today. She has an upcoming new OB appointment and a scheduled ultrasound. She declines aneuploidy screening and genetic carrier screening testing. Erma Johnson RN Tooth injury age 11-swimming pool accident-lost 1 front tooth and 1/2 of other Trauma PAST SURGICAL HISTORY Procedure Laterality Date PAST SURGICAL HISTORY OF dental surgery Current Outpatient Medications Medication Sig Dispense Refill PNV [id number] 3.33 mg iron- 0.33 mg chew Take by mouth. No current facility-administered medications for this visit. Allergies As of Date: 01/20/2025 (No Known Allergies) Fully Assessed 01/20/2025 Does patient have penicillin allergy: No REVIEW OF SYSTEMS: GENERAL: Negative for: Fever or Chills HEENT: Negative for: Headache, Impaired Vision, Ringing in Ears, Nosebleeds NECK: Negative for: Swelling, Pain, Stiffness RESPIRATORY: Negative for: Cough, Shortness of breath, Wheezing GASTROINTESTINAL: Negative for: Heartburn, Constipation, Diarrhea, Blood in stool, Vomiting MUSCULOSKELETAL: Negative for: Muscle or joint pain, stiffness, Joint swelling NEUROLOGIC/PSYCHIATRIC: Negative for: Weakness, Paralysis, Numbness, Tingling, Tremor, Anxiety, Depression, Memory loss SKIN: Negative for: Rash, Itching GENITOURINARY: Negative for: vaginal itching, vaginal discharge, hematuria or dysuria SENSITIVE EXAM: The sensitive examination was discussed with the Patient or Patient's Authorized Finance Accounting Internship. As applicable, any other physician, advance practice provider, medical student, or other health professional student that will be observing or involved in the sensitive examination for educational or training purposes was discussed with the Patient or Authorized Finance Accounting Internship. The Patient or Authorized Finance Accounting Internship has agreed to proceed with the sensitive examination. (Sensitive examination includes inspection and/or palpation of the breasts, pelvis, prostate and anorectal regions). PHYSICAL EXAM: BP 104/60 Ht 5' 3.858 (1.62m) Wt 126 lb (57.2kg) LMP 04/17/2023 BMI 21.72 kg/(m^2). GENERAL: pleasant in no apparent distress DERMATOLOGY: Normal, without lesions, non-icteric, and non-hirsute NECK: Supple, full range of motion, no adenopathy, and thyroid normal CHEST: Normal inspiratory effort BREAST: soft, non-tender, symmetric, no dominant mass, normal nipple-areolar complex, no lymphadenopathy, and no nipple discharge ABDOMEN: soft, non-tender, and no masses NEURO: alert and oriented x3,exam grossly non-focal PELVIS: External genitalia normal without lesions. Perineal body intact. No vaginal or cervical lesions. Cervix closed. Uterus 12+ week size. No adnexal masses or tenderness. Clinical Pelvimetry: Pelvimetry clinically assessed as adequate Limited OB ultrasound exam: single intrauterine and positive cardiac activity ASSESSMENT: 24 year old at 92w0d wks gestational age PLAN: 1) Patient oriented to practice. Patient given new OB orientation folder. Discussed nutrition, folic acid supplementation, dietary guidelines, exercise, smoking, alcohol, caffeine, and drug use. Discussed gestational weight gain guidelines. Discussed routine OB labs including STD/HIV. Discussed how to access Your guide to a health and the [employer]. Discussed hemoglobin electrophoresis. Patient: Declines Reviewed midwifery and internal control specialist services that are available. 2) Screening: Hemoglobin A1C: ordered Baby Aspirin: The patient has been counseled about the potential benefits of low dose aspirin in and our recommendation that this be offered to all patients, regardless of whether they meet the high risk criteria specified above. She Accepts Aneuploidy Screening: Discussed aneuploidy screening, nuchal translucency/first trimester early anatomy ultrasound and NIPT. The risks/benefits and limitations of NIPT/aneuploidy screening were reviewed including the potential for false negative and false positive results. The availability of genetic counseling was reviewed. Information on aneuploidy screening was provided. The patient declines [employer] Carrier Screening: Discussed myriad carrier screening. We discussed the availability of professional-society guided carrier screening and reviewed the conditions screened and limitations of screening. The availability of genetic counseling was reviewed. Information on carrier screening was provided. The patient Declines 3) Patient offered option of Virtual Visits. Patient unsure. May consider in future. ACTIVE PROBLEM LIST Supervision of Normal ([facility]) - 01/20/2025 Comment: Care Checklist Vaccines: [] Flu vaccine [] declined [] RSV vaccine 32 0/7 - 36 6/7 (Jun - Nov) [] declined [] COVID vaccine [] declined [] TDaP 27-36 [] declined First trimester: [x] Dating US [x] 1st tri labs [x] Pap smear UTD 2022 [] Carrier screening [x] declined [] NIPT screening [x] declined [] First trimester anatomy scan [] declined [x] universal ASA ordered (start 12w-16w) [] declined [] M Power Consult [] not indicated [] declined Second trimester: [] Anatomy scan [] Mode of Delivery - [] Feeding - [] Pump ordered [] Diabetes screen [] CBC, RPR [] Behavioral Health Screening Third trimester (28-30 weeks): [] Consent [] Contraception [] Talent Manager [] TeamBirth handout Third trimester (36-40 weeks): [] GBS [] Presentation - [] Scheduled [] yes - Hibiclens, pre-op instructions, CBC, T&S ordered [] no [] H&P [] Preferences worksheet [] Scanne Rh Negative State in Antepartum Period ([facility]) - 01/20/2025 Comment: January 20, 2025 Plan for Rhogam at 28 weeks and . Follow up in 4 weeks or sooner prn. Plan for anatomy ultrasound between 18-20 weeks. Ben Rod APRN.CNP documented in this encounter [facility] 01-19-2025 Telephone encounter Note Pt returned call; however, informed her that the MA that called her is currently with a patient; therefore, advised Pt to please arrive 30 minutes prior to appt and to arrive with full bladder. Pt voiced understanding. Riky Sinclair RN [facility] 01-19-2025 Miscellaneous Notes Pt returned call; however, informed her that the MA that called her is currently with a patient; therefore, advised Pt to please arrive 30 minutes prior to appt and to arrive with full bladder. Pt voiced understanding. Riky Sinclair RN Attempted to contact patient to go over new ob intake questions using phone number listed in chart. No answer; left a voicemail. Patient was advised to come in 30 minutes prior to her appointment time if she is not able to complete intake. Amparo Montoya MA documented in this encounter [facility] 01-19-2025 Telephone encounter Note Attempted to contact patient to go over new ob intake questions using phone number listed in chart. No answer; left a voicemail. Patient was advised to come in 30 minutes prior to her appointment time if she is not able to complete intake. Amparo Montoya MA [facility] 03-09-2024 History of Presen t illness Narrative SUBJECTIVE: 23 year old female presents for 6 week exam. Outcome: . Date delivered: 01/27/24. Delivering M.D.: Dr. Mcwilliams Delivered in [facility]? [facility] Sex: female, Wt: 7 lbs 12 oz. Baby's Name: Reanna Olvera. Feeding: Breast feeding. Lochia: has ceased. Bladder: Normal. Bowels: Normal for patient, no c/o bowel problems. Last PAP: 07/30/23 If , do you have any drainage or redness at incision site? N/A Do you have a fever? No Sexual Activity: Has not resumed. control Plans: will discuss with physician at this visit. Additional Issues/problems/concerns: none Susanna Beckler, BAR STAFF Details: None OBJECTIVE: Breast Exam: breasts symmetric, no dominant or suspicious mass, no skin or nipple changes, no axillary adenopathy. Abdomen: soft, non-tender, no masses, no hepatosplenomegaly, and no lymphadenopathy Incision: None Perineum: perineal incision healed. Pelvic Exam: negative findings: external genitalia normal, normal Bartholin's glands, urethra, Lawtell's glands, no vulvar lesions, no cervical lesions, normal discharge, well estrogenized, good vaginal support, vault clean with normal discharge, normal appearing perineal body and perianal region Bimanual Exam: no cervical motion tenderness/, uterus normal size, shape and consistency/ , no adnexal masses, and non-tender ASSESSMENT: good candidate for condoms. Use, risks , benefits and side effects discussed with patient. PLAN: weight loss: Goal set for 10% of body weight over 6 months. Discussed diet and exercise., RTC for annual exams and PRN I have reviewed and updated past medical and surgical history, medications and allergies. Ann De La Vega APRN.COUNTERSINKER documented in this encounter [facility] 01-28-2024 Discharge summary Note Date/Time January 28, 2024 1:01pm [facility] Medical Records Department [address] [place] [id number] Discharge Summary 01/28/24 1300 MR#: [id number] Acct: [id number] Name: MURIEL SWARTZ Rep #:[id number] : 2000 23 From: Chasity LONG PCP: Care Physician,No Primary Status :ADM IN Location: [id number] Providers Date of Admission: 01/27/24 Date of Discharge: 01/28/24 Primary Care Physician: No Primary Care Phys Reason For Visit: VAGINAL DELIVERY Diagnosis Discharge Diagnosis (1) (spontaneous vaginal delivery): Status: Acute Code(s): O80 - Encounter for full-term uncomplicated delivery (2) Lactating mother: Status: Acute Code(s): Z39.1 - Encounter for care and examination of lactating mother Plan 1) Routine PP care 2) 3) vitals stable 4) GBS positive without adequate treatment, D/C tomorrow Medications at Discharge Home Medications vit no.95-ferrous fumarate 28 mg-folic acid 800 mcg tablet () 1tab PO DAILY 01/27/24 acetaminophen 500 mg tablet 1,000 mg (2 x 500 mg) PO Q6H PRN PRN Pain 1-10 Or Fever #0 tabs 01/28/24 ibuprofen 600 mg tablet 600 mg PO Q6H PRN PRN Pain Score 1-10 #0 tabs 01/28/24 Hospital Course Summary of Care Provided Minutes Spent on Discharge: 15 Weight / BMI Weight Weight: 157 lb Body Mass Index (BMI) 25.3 ABG / Lab / Microbiology Data 01/27/24 09:15 Laboratory: Laboratory Results - last 24 hr 01/27/24 23:40: Screen NEGATIVE, Baby's Blood Type O POSITIVE, Baby's TRENA NEGATIVE D/C Instructions Discharge Diet: No restrictions May resume sexual activity in: 6 weeks Weight Bearing Status: Full weight bearing Lifting Restricted to (Lbs): 20 Call your doctor if you observe: Fever of 101 or Higher, Inability to urinate, Inability to have a bowel movement, Using more than 1 pad per hour, Shortness ofbreath, Dizziness, Fainting spells, Chest pain, Increased palpitations (irregular heartbeat), Calf discomfort and Uncontrolled pain When: Follow up in 2 weeks for virtual or in person visit. 6 weeks for in personvisit Meaningful Use Info Meaningful Use Meaningful Use Diagnoses (Choose all that apply): None applicable Ischemic Stroke Statin Dosing Therapy Reference: STATIN DOSE THERAPY REFERENCE: * Patients > 75 years receive moderate or high dose statin therapy. * Patients 75 years or YOUNGER should receive HIGH intensity statin dose unless contraindicated. You will be required to document reason for non-treatment if statin daily dose does not meet guidelines. HIGH DOSE STATIN THERAPY DAILY Atorvastatin > than or = to 40 mg Rosuvastatin > than or = to 20 mg Amlodipine + Atorvastatin > than or = to 2.5/40 mg Ezetimibe + Simvastatin 10/80 mg Simvastatin 80mg Discharge Plan Admission Admit Date/Time: 01/27/24 08:50 Primary Reason for Your Visit: Vaginal Delivery Attending Provider: Dayan Mcwilliams Primary Care Provider: Care Physician,Chelsea Primary Discharge Orders/Prescriptions Prescriptions: New acetaminophen 500 mg Tablet 1,000 mg PO Q6H PRN PRN (Reason: Pain 1-10 Or Fever) Qty: 0 0RF ibuprofen 600 mg Tablet 600 mg PO Q6H PRN PRN (Reason: Pain Score 1-10) Qty: 0 0RF Continued PNV cmb#95-ferrous fumarate-FA [] 28 mg iron- 800 mcg tablet 1 tab PO DAILY Referrals / Follow Up: Care Physician,No Primary [Primary Care Provider] - Disposition Disposition (needs filled in before D/C Order can be placed): Home, Self Care 01/28/24 1303 <Electronically signed by Chasity Russell CNM> Cosigner Signature (if applicable): CC: EBEN Russell; No Primary Care Physician~ Signed [facility] Work Phone: 1(590) 472-718504-23-2024 Progress note Author Chasity Russell [facility] January 28, 2024 1:00pm Note Date/Time January 28, 2024 9:1 3am [facility] Medical Records Department [address] [place] [address] Progress Note - OBGYN 01/28/24911 MR#: [id number] Acct: [id number] Name: MURIEL SWARTZ Rep #:[id number] : 2000 23 From: Chasity LONG PCP: Care Physician,No Primary Status :ADM IN Location: [place] [id number] Subjective Subjective Doing well per patient and nursing staff. Ambulating and taking PO without difficulty. Voiding and passing flatus. Pain controlled. , services for assistance. Denies headache, visual changes, chest pain, shortness of breath, leg pain or increased bleeding. Lochia normal. Objective Data Objective Data Vital Signs: Vital Signs Temp Pulse Resp BP Pulse Ox O2 Del Method 97.8 F 73 16 103/66 99 Room Air 01/28/24 04:34 01/28/24 04:34 01/28/24 04:34 01/28/24 04:34 01/28/24 04:34 01/28/24 04:34 Oxygen Delivery Method Room Air Weight: 157 lb Body Mass Index (BMI) 25.3 Intake & Output: Intake and Output for Last 24 Hours 01/26/24 01/27/24 01/28/24 23:59 23:59 23:59 Intake Total 1051.67 / 1051.67 Output Total 800 / 1700 900 / 900 Balance 251.67 / -648.33 -900 / -900 Lab / Micro Data 01/27/24 09:15 Labs: Laboratory Results - last 24 hr 01/27/24 09:15: WBC 11.8 H, RBC 4.90, Hgb 14.7, Hct 43.0, MCV 87.8, MCH 30.0, MCHC 34.2, RDW Std Deviation 38.6, RDW Coeff of Janee 12.0, Plt Count 212, MPV 11.2, Immature Gran % (Auto) 0.500, Neut % (Auto) 77.3 H, Lymph % (Auto) 15.5 L,Long % (Auto) 6.2, Eos % (Auto) 0.2, Baso % (Auto) 0.3, Absolute Neuts (auto) 9.2 H, Absolute Lymphs (auto) 1.84, Nucleated RBC % 0, Syphilis Total Ab Non-reactive, Blood Type A NEGATIVE, Antibody Screen NEGATIVE 01/27/24 23:40: Screen NEGATIVE, Baby's Blood Type O POSITIVE, Baby's TRENA NEGATIVE ROS Constitutional Constitutional: Reports systems reviewed and no addt'l complaints, except as documented; Denies headache(s) Eyes Eyes: Denies acute decrease in peripheral vision, blurry vision or change in vision ENT HEENT: Reports systems reviewed and no addt'l complaints, except as documented Cardiovascular Cardiovascular: Denies chest pain or dizziness Respiratory/Chest Respiratory/Chest: Denies cough, dyspnea, dyspnea on exertion, shortness of breath at rest or shortness of breath with exertion Gastrointestinal Gastrointestinal: Denies abdominal pain, diarrhea, nausea or vomiting Genitourinary Genitourinary: Denies abdominal discomfort Musculoskeletal Musculoskeletal: Denies limited range of motion Integumentary Integumentary: Reports systems reviewed and no addt'l complaints, except as documented Neurologic Neurologic: Reports systems reviewed and no addt'l complaints, except as documented Psychiatric Psychiatric: Reports systems reviewed and no addt'l complaints, except as documented Endocrine Endocrinology: Reports systems reviewed and no addt'l complaints, except as documented Hematologic/Lymphatic Hematologic/Lymphatic: Reports systems reviewed and no addt'l complaints, exceptas documented Allergic/Immunologic Allergic/Immunologic: Reports systems reviewed and no addt'l complaints, except as documented Physical Exam Const alert and oriented x3 General Appearance: cooperative Orientation / Consciousness: awake, oriented to person, oriented to place and oriented to time Exam Limitations: no limitations HEENT normocephalic Head and Scalp: normal to inspection, normocephalic and atraumatic Face and Sinus: normal facial exam Eyes General Eye: normal appearance of both eyes Neck full ROM Chest Chest: symmetrical chest wall rise Resp normal respiratory effort and normal air movement Auscultation: clear to auscultation bilaterally Cardio regular rate, regular rhythm, S1 normal heart sound, S2 normal heart sound, no murmurs, no rub, no gallops and no clicks GI normal to inspection, nondistended, normoactive bowel sounds and non-tender appearance of the vagina normal Bladder / Kidney Exam: no CVA tenderness Back/Spine normal ROM Extremity normal to inspection and full ROM Skin no rashes or lesions noted Neuro oriented x3 and moves all extremities Sensorium / Orientation: awake, alert and oriented to person Motor Exam: clonus absent Deep Tendon Reflexes: Rt Patellar (L4): 2+ and Lt Patellar (L4): 2+ Assessment & Plan (1) (spontaneous vaginal delivery): (2) Lactating mother: PLAN: Plan 1) Routine PP care 2) 3) vitals stable 4) GBS positive without adequate treatment, D/C tomorrow 01/28/24 0913 <Electronically signed by Chasity Russell CNM> Cosigner Signature (if applicable): CC: ~ Signed ADDENDUM by EBEN Russell on 01/28/24 at 1300 Addendum Patient did have adequate treatment for GBS. D/C home today. 01/28/24 1300<Electronically signed by Chasity Russell CNM> Cosigner Signature (if applicable): cc: ~* Signed [facility] Work Phone: 1(803) 834-112504-23-2024 Hospital Discharge instructions Additional Instructions Date of Discharge: 01/28/24[facility] Work Phone: 1(179) 895-400004-23-2024 History of Present illness Narrative* Dayan Fuentes RN - 01/28/2024 8:40 AM EDT Patient delivered via at [facility] on 01/27/24 per Dayan Mcwilliams MD . See OB Outcome note. Steffi RN documented [facility] History and physical note Author Dayan Mcwilliams [facility] January 28, 2024 1:43am Note Date/Time January 28, 2024 1:3 9am [facility] Medical Records Department [address] [place] [address] H&P Exam - EAR[facility]URNER 01/28/24 0138 MR#: [id number] Acct: [id number] Name: MURIEL SWARTZ Rep #:[id number] : 2000 23 From: Dayan Mcwilliams MD PCP: Care Physician,No Primary Status :ADM IN Location: [place] [address] HPI - General General Date of Admission: 01/27/24 Date of Service: 01/27/24 Chief Complaint: Presented in active labor HPI Narrative MURIEL SWARTZ, is a 23 F who presents to labor and delivery in active labor. Membranes intact. GBS positive Maternal Data Information Final CHRISTOPHER: 01/22/24 Gestational age: 40+5 PFSH PFSH Home Medications vit no.95-ferrous fumarate 28 mg-folic acid 800 mcg tablet () 1tab PO DAILY 01/27/24 [History Last Taken 01/27/24] Allergy/AdvReac Type Severity Reaction Status Date / Time No Known Allergies Allergy Verified 01/27/24 08:45 Surgical History History of surgery Social History Smoking Status: Never smoker History 1 Elective abortions Hx Para 0 Spontaneous abortions Hx # Term Pregnancies Ectopic pregnancies Hx # Pregnancies Multiple births # of living children NST FHR Rate Baby A Variability:: Moderate Accelerations:: 15 x 15 Decelerations:: None NST Reactive:: Yes FHR Category:: Category I Uterine Activity:: q2-4 ROS Constitutional Constitutional: Denies fatigue, fever(s) or malaise Eyes Eyes: Denies change in vision ENT HEENT: Denies dizziness or headache(s) Cardiovascular Cardiovascular: Denies chest pain, dyspnea or lightheadedness Respiratory/Chest Respiratory/Chest: Denies cough or dyspnea Gastrointestinal Gastrointestinal: Denies change in bowel habits Genitourinary Genitourinary: Denies burning urination or genital lesions Integumentary Integumentary: Denies rash Neurologic Neurologic: Denies confusion, dizziness, headache(s), numbness or weakness Vital Signs Vital Signs Vital Signs: 01/27/24 09:31 01/27/24 09:31 01/27/24 09:31 Temperature Temperature Source Pulse Rate 78 Respiratory Rate Blood Pressure 111/68 Blood Pressure Mean BP Systolic 111 BP Diastolic 68 Blood Pressure Source Blood Pressure Position Blood Pressure Location Pulse Ox 100 Oxygen Delivery Method 01/27/24 09:54 01/27/24 09:31 01/27/24 09:31 Temperature 98.1 F Temperature Source Temporal Pulse Rate Respiratory Rate 16 Blood Pressure Blood Pressure Mean BP Systolic BP Diastolic Blood Pressure Source Blood Pressure Position Blood Pressure Location Pulse Ox Oxygen Delivery Method 01/27/24 09:31 01/27/24 11:47 01/27/24 11:47 Temperature 98.0 F Temperature Source Temporal Pulse Rate Respiratory Rate 18 Blood Pressure Blood Pressure Mean BP Systolic BP Diastolic Blood Pressure Source Blood Pressure Position Blood Pressure Location Pulse Ox Oxygen Delivery Method 01/27/24 11:47 01/27/24 11:51 01/27/24 11:51 Temperature 98.0 F Temperature Source Pulse Rate 82 Respiratory Rate Blood Pressure 120/79 Blood Pressure Mean BP Systolic 120 BP Diastolic 79 Blood Pressure Source Blood Pressure Position Blood Pressure Location Pulse Ox Oxygen Delivery Method 01/27/24 12:37 01/27/24 12:37 01/27/24 12:37 Temperature Temperature Source Pulse Rate 87 Respiratory Rate Blood Pressure 126/76 H Blood Pressure Mean BP Systolic 126 BP Diastolic 76 Blood Pressure Source Blood Pressure Position Blood Pressure Location Pulse Ox 100 Oxygen Delivery Method 01/27/24 12:37 01/27/24 14:00 01/27/24 14:01 Temperature 98.2 F 99.0 F Temperature Source Pulse Rate Respiratory Rate Blood Pressure 125/77 H Blood Pressure Mean BP Systolic 125 BP Diastolic 77 Blood Pressure Source Blood Pressure Position Blood Pressure Location Pulse Ox Oxygen Delivery Method 01/27/24 14:01 01/27/24 14:01 01/27/24 15:15 Temperature Temperature Source Pulse Rate 79 Respiratory Rate Blood Pressure 118/69 Blood Pressure Mean BP Systolic 118 BP Diastolic 69 Blood Pressure Source Blood Pressure Position Blood Pressure Location Pulse Ox 100 Oxygen Delivery Method 01/27/24 15:15 01/27/24 15:15 01/27/24 15:15 Temperature Temperature Source Temporal Pulse Rate 82 Respiratory Rate Blood Pressure Blood Pressure Mean BP Systolic BP Diastolic Blood Pressure Source Blood Pressure Position Blood Pressure Location Pulse Ox 100 Oxygen Delivery Method 01/27/24 15:16 01/27/24 16:28 01/27/24 16:28 Temperature 98.1 F Temperature Source Pulse Rate 79 Respiratory Rate Blood Pressure 121/72 H Blood Pressure Mean BP Systolic 121 BP Diastolic 72 Blood Pressure Source Blood Pressure Position Blood Pressure Location Pulse Ox Oxygen Delivery Method 01/27/24 16:43 01/27/24 16:43 01/27/24 16:58 Temperature Temperature Source Pulse Rate 75 Respiratory Rate Blood Pressure 125/78 H 134/81 H Blood Pressure Mean BP Systolic 125 134 BP Diastolic 78 81 Blood Pressure Source Blood Pressure Position Blood Pressure Location Pulse Ox Oxygen Delivery Method 01/27/24 16:58 01/27/24 17:13 01/27/24 17:13 Temperature Temperature Source Pulse Rate 70 73 Respiratory Rate Blood Pressure 108/80 Blood Pressure Mean BP Systolic 108 BP Diastolic 80 Blood Pressure Source Blood Pressure Position Blood Pressure Location Pulse Ox Oxygen Delivery Method 01/27/24 17:23 01/27/24 17:23 01/27/24 17:23 Temperature 98.6 F Temperature Source Temporal Pulse Rate Respiratory Rate 16 Blood Pressure Blood Pressure Mean BP Systolic BP Diastolic Blood Pressure Source Blood Pressure Position Blood Pressure Location Pulse Ox Oxygen Delivery Method 01/27/24 17:29 01/27/24 17:29 01/27/24 17:43 Temperature Temperature Source Pulse Rate 70 Respiratory Rate Blood Pressure 132/84 H 128/83 H Blood Pressure Mean BP Systolic 132 128 BP Diastolic 84 83 Blood Pressure Source Blood Pressure Position Blood Pressure Location Pulse Ox Oxygen Delivery Method 01/27/24 17:43 01/27/24 17:58 01/27/24 17:58 Temperature Temperature Source Pulse Rate 69 62 Respiratory Rate Blood Pressure 144/88 H Blood Pressure Mean BP Systolic 144 BP Diastolic 88 Blood Pressure Source Blood Pressure Position Blood Pressure Location Pulse Ox Oxygen Delivery Method 01/27/24 18:05 01/27/24 18:05 01/27/24 18:05 Temperature 98.1 F Temperature Source Temporal Pulse Rate Respiratory Rate 16 Blood Pressure Blood Pressure Mean BP Systolic BP Diastolic Blood Pressure Source Blood Pressure Position Blood Pressure Location Pulse Ox Oxygen Delivery Method 01/27/24 18:13 01/27/24 18:13 01/27/24 19:47 Temperature Temperature Source Temporal Pulse Rate 73 Respiratory Rate Blood Pressure 130/81 H Blood Pressure Mean BP Systolic 130 BP Diastolic 81 Blood Pressure Source Blood Pressure Position Blood Pressure Location Pulse Ox Oxygen Delivery Method 01/27/24 23:31 01/27/24 19:47 01/27/24 23:31 Temperature 97.4 F L 98.6 F Temperature Source Temporal Temporal Temporal Pulse Rate 77 83 Respiratory Rate 16 20 H Blood Pressure 110/74 100/62 Blood Pressure Mean 86 74 BP Systolic BP Diastolic Blood Pressure Source Monitor Monitor Blood Pressure Position Semi-Fowlers Semi-Fowlers Blood Pressure Location Left Arm Left Arm Pulse Ox 98 98 Oxygen Delivery Method Room Air Room Air Weight Weight: 71.214 kg Body Mass Index (BMI) 25.3 Physical Exam Const alert and no apparent distress General Appearance: cooperative HEENT normocephalic Resp normal respiratory effort Cardio regular rate GI soft to palpation GI Narrative: gravid, nontender, appropriate for gestational age Extremity no calf tenderness General Extremity: edema Skin no wounds Rashes: No rashes noted Psych activity/motor behavior normal Labs Labs Labs: Blood Type A NEGATIVE Antibody Screen NEGATIVE Hct 43.0 % (37-47) Hgb 14.7 g/dL (12.0-15.0) Syphilis Total Ab Non-reactive Assessment & Plan (1) Post term over 40 weeks: (2) Active labor at term: (3) Positive GBS test: PLAN: PCN 01/28/24 0143 <Electronically signed by Dayan Mcwilliams MD> Cosigner Signature (if applicable): CC: Dr. Dayan Mcwilliams MD; No Primary Care Physician~ Signed [facility] Work Phone: 1(640) 134-802804-22-2024 Procedure [facility] 01-21-2024 Miscellaneous Notes* Quick Notes - Kale Zambrano MD - 01/21/2024 10:42 AM EDT KJ - VB No. LOF No. CTXS Yes - irregular & mild. Movement: present. Other c/o: No. Medication list reviewed. Physical Exam See Flow Sheet Gen: no accute distress, well appearing Abd: soft, nontender, gravid A/P 39w6d Estimated Date of Delivery: 01/22/24 Discussed R/B/A of IOL at 41 weeks and informed consent signed. Labor precautions reviewed, Kick counts reviewed. Kale Zambrano MD documented [facility] Instructions* Patient Instructions* Henna Hui MA - 01/21/2024 10:31 AM EDT SEQUENTIAL SCREENINGS The [facility] offers sequential screenings for women who are interested in screenings for chromosomal abnormalities and certain defects during a . The sequential screen combinesultrasound and blood tests to determine the risk of chromosomal abnormalities, including Down's Syndrome (Trisomy 21) and Trisomy 18, as well as open neural tube defects including spina bifida. Ultrasound examination is performed between 11 weeks and 13 weeks gestational age. Blood tests are drawn after the ultrasound and again later in the between 15 and 21 weeks gestational age. Please let your physician know if you are interested in this testing. It will require an appointment withour associate technician. This is not an ultrasound performed by a physician in our office during a routine visit. SIGNS AND SYMPTOMS OF LABOR 1. Contractions every 10 minutes or more often 2. Clear, pink, or brownish fluid (water) leaking from vagina 3. Feeling that baby is pushing down, pressure 4. Low, dull backache 5. Cramps that feel like a period 6. Cramps with or without diarrhea If you notice any of the above symptoms, contact our office at [phone] and ask to speak with anurse. After hours, you can call doctors registry at [phone] OR call [facility] at [phone] ask to have the doctor contract consultant paged. If you consider this an emergency, dial 9-1-1 or go to your nearest emergency department. NEED HELP? Are you dealing with a violent or abusive relationship? Are you a victim of rape or sexual assult? Call [facility] 24 hour Crisis Hotline: 817.516.6458 or 793-579-4362. MANUAL Your Guide to a Healthy manual is now on-line. Visit [email or web address] to download your free copy documented in this encounterSt. [facility]04-[facility]24 Miscellaneous Notes* Quick Notes - Yi Cobos APRN.CNM - 01/17/2024 9:01 AM EDT S: Muriel Swartz is a 23 year old female who presents at for a routine visit. Denies headache, visual changes, chest pain, shortness of breath, vaginal bleeding, leakage of fluid, or dysuria. Feeling well, no complaints. Declines CE today. O: See flow sheet Gen: No apparent distress Abd: Gravid, nontender A: ASSESSMENT/PLAN: 1. 39 weeks gestation of - ICD9: V22.2, ICD10: Z3A.39 (primary diagnosis) 2. Anemia during in third trimester - ICD9: 648.23, ICD10: O99.013 3. Encounter for supervision of normal first in third trimester - ICD9: V22.0, ICD10: Z34.03 - Desires physiological onset of labor but would like induction at 41 weeks gestation - GBS positive- Treat with PCN IV during labor - Plan to schedule and sign induction consent next visit - Labor precautions reviewed and when to call office - RTO - 1 week Yi Cobos APRN.CNM documented in this encounterSt. [facility]04-12-2024 Instructions* Patient Instructions* Yi Cobos APRN.CNM - 01/17/2024 8:40 AM EDT Images from the original note were not included. Preparing for labor: Eat dates to promote spontaneous labor! Has an oxytocin-like effect on the body, leading to increased sensitivity of the uterus. Stimulates uterine contractions. Reduces hemorrhage the way oxytocin does. Date fruit contains saturated and unsaturated fatty acids such as oleic, linoleic, and linolenic acids, which are involved in saving and supplying energy and construction of prostaglandins. In addition, serotonin, tannin, and calcium in date fruit contribute to the contraction of smooth muscles of the uterus. Date fruit also has a laxative effect, which stimulates uterine contractions. Six dates per day is the magic number--provided that you re eating smaller deglet noor dates. Deglet noor dates are about 1 inch long. Medjool dates can be up to 2 inches long. If you re eating medjool dates, you only need about 3 dates to reach the 75 grams recommended in the studies. Not sure which type of date you have in your refrigerator? It s probably a deglet noor. How to Eat Dates During Dates are a healthy and delicious snack, so how can you add them to your diet? Add dates during in this awesome oatmeal recipe. Add dates to replace sugar in your favorite recipe or to gloria your homemade almond milk. Use dates and nuts to make an easy pie crust in the food preparation supervisor. Add soaked dates to homemade nut butter for a sweet treat. Add dates to gloria homemade salad dressing. Add dates during easily with these yummy (paleo friendly) bars made from dates. What Is Red Raspberry [place] Tea? Red raspberry leaf tea comes from the leaves of the red raspberry plant. This herbal tea has been used for centuries to support respiratory, digestive and uterine health, particularly during and childbearing years. While usually known as a female herb, red raspberry leaf tea can also helpsupport the prostate and various stomach ailments in children. How It Can Help and Red raspberry leaf tea can help to make labor faster and reduce complications and interventions during . One study found that women who consumed RRL tea regularly are less likely to go overdue or give prematurely. These women may also be less likely to receive an artificial rupture of their membranes or require a section, forceps, or vacuum than the women in the control group. Red raspberry leaf has many other benefits to , , and too. How Much Red Raspberry [place] Tea to Drink? With your doctor or quality assurance monitor final s approval, start with 1 cup of red raspberry leaf tea per day startingin the second trimester. Watch for any uterine cramping or other reactions. If you don t experienceany, you can talk to your healthcare provider about increasing to 2 cups per day. Again, watch for any uterine cramping. If you notice any, cut back on your dosage for two weeks and try again. Keep in mind, some moms have irritable uteruses and can only drink red raspberry leaf tea once theyreach their due date because of uterine cramping. Is Red Raspberry [place] Tea the Same as Raspberry [place] Tea? How About Plain Old Raspberry Tea? Sometimes. You really need to look at the ingredients to be sure. Note that there is no difference between red raspberry leaf and raspberry leaf. 1-800-DENTIST or [employer] Raspberry [place] Tea are two good brands. The red raspberry leaf teas that we recommend are 100% red raspberry leaf. Other teas labeled as raspberry are often a blend of rosehips, hibiscus, raspberry leaves, and raspberry flavor. So they maynot be as effective. The teas to avoid are raspberry-flavored herbal teas, which may have ingredients like hibiscus, kristine hips, apples, elderberries, natural and artificial raspberry flavors. Teas like this don t containraspberry leaf at all and thus won t offer any of the potential benefits of RRLT outlined in this article. The [employer] www.[employer].WRG Creative Communication I named this 'circuit' after my friend Altagracia Nunez, who shared and discussed it with me when I was working with a client whose labor seemed to be stalled out and no longer progressing... This circuit is useful to help get the baby lined up, ideally, in the Left Occiput Anterior (MARÍA) Position, both before labor begins and when some corrections need to be done during labor. Prenatally, this position set can help to rotate a baby. As a natural method of induction, this can help get things going if baby just needed a gentle nudge of position to set things off. To the best of my knowledge, this group of positions will not hurt a baby that is already lined up correctly. - Tasha Pereira Before you Begin..... This circuit takes at least 90 minutes to complete so clear your schedule and make mental preparations so you can relax in your environment. The second step requires a lot of pillows so gather them up before beginning Before starting, you should empty your bladder! Have a nice drink nearby, and make sure it has a straw! If you are having contractions, this circuit should bedone through contractions, try not to change positions between steps Step One: Open-knee Chest Stay in this position for 30 minutes, start in cat/cow, then drop your chest as low as you can to the bed or the floor and your bottom as high as you can. Knees should be fairly wide apart, and the angle between the torso/thighs should be wider than 90 degrees. Wiggle around, prop with lots of pillows and use this time to get totally relaxed.This position allows the baby to scoot out of the pelvis a bit and gives them room to rotate, shift their head position, etc. If the person finds it helpful,careful positioning with a rebozo under the belly, with gentle tension from a support person behindcan help maintain this position for the full 30minutes. Step Two: Exaggerated Left Side Lying Roll to your left side, bringing your top leg as high as possible and keeping your bottom leg straight. Roll forward as much as possible,again using a lot of pillows. Sink into the bed and relax somemore. If you fall asleep, that's totally okay and you can stay there! If not, stay here for at least another half an hour. Try and get your top right leg up towards your head and get as rolled over onto your belly as much as possible. If you repeat the circuit during labor, try alternating left and right sides. We know the photo the left is actually right side... just flip the image in your head. Step Three: Moving and Lunges Lunge, walk stairs facing sideways, 2 at a time, (have a traffic rate computer downstairs of you!), take a walk outside with one foot on the curb and the other on the street, sit on a ball and hula- anything that's upright and putting your pelvis in open, asymmetrical positions. Spend at least 30 minutes doing this one as well to give your baby a chance to move down. If you are lunging or stair or curb walking, you should lunge/walk/go up stairs in the direction that feels better to you. The shipman with the lunge is that the toes of the higher leg and mom's belly button should be at right angles. Do not lunge over your knee, that closes the pelvis. Altagracia Nunez: Circuit Creator - www.[employer]pt[employer] Systemsbirthcollective.WRG Creative Communication Tasha Pereira CD, BDT (ZHANG), LCCE, FACCE: Supporting Content - www.Radion[employer] Ben Camacho: Photography - www.[email or web address] Digitalto.WRG Creative Communication Flores Arreola CD/CDT (ANA ROSA): Print and Catering Server - www.Instapio.SPEEDELO Circuit Masterminds The [employer] Circuit www.[employer] [place] SEQUENTIAL SCREENINGS The [facility] offers sequential screenings for women who are interested in screenings for chromosomal abnormalities and certain defects during a . The sequential screen combinesultrasound and blood tests to determine the risk of chromosomal abnormalities, including Down's Syndrome (Trisomy 21) and Trisomy 18, as well as open neural tube defects including spina bifida. Ultrasound examination is performed between 11 weeks and 13 weeks gestational age. Blood tests are drawn after the ultrasound and again later in the between 15 and 21 weeks gestational age. Please let your physician know if you are interested in this testing. It will require an appointment withour associate technician. This is not an ultrasound performed by a physician in our office during a routine visit. SIGNS AND SYMPTOMS OF LABOR 1. Contractions every 10 minutes or more often 2. Clear, pink, or brownish fluid (water) leaking from vagina 3. Feeling that baby is pushing down, pressure 4. Low, dull backache 5. Cramps that feel like a period 6. Cramps with or without diarrhea If you notice any of the above symptoms, contact our office at [phone] and ask to speak with anurse. After hours, you can call doctors registry at [phone] OR call [facility] at [phone] ask to have the doctor contract consultant paged. If you consider this an emergency, dial 06-07- or go to your nearest emergency department. NEED HELP? Are you dealing with a violent or abusive relationship? Are you a victim of rape or sexual assult? Call [facility] ([place]) 24 hour Crisis Hotline: 821.616.1343 or 650-770-3306. MANUAL Your Guide to a Healthy manual is now on-line. Visit [email or web address] to download your free copy documented in this encounterSt. Mary'[facility]04-[facility]-2024 Miscellaneous Notes* Quick Notes - Dayan Mcwilliams MD - 01/10/2024 12:02 PM EDT S: Muriel Swartz is a 23 year old female who presents at 01/22/2024, by Last Menstrual Period for aroutine visit. Denies headache, visual changes, chest pain, shortness of breath, vaginal bleeding, leakage of fluid, or dysuria. Feeling well, no complaints. O: See flow sheet Gen: No apparent distress Abd: Gravid, nontender Unable to reach cervix ASSESSMENT/PLAN: 1. 38 weeks gestation of - ICD9: V22.2, ICD10: Z3A.38 (primary diagnosis) Vertex by ultrasound - URINE OB DIP B/O 2. Anemia during in third trimester - ICD9: 648.23, ICD10: O99.013 3. Encounter for supervision of normal first in third trimester - ICD9: V22.0, ICD10: Z34.03 Dayan Mcwilliams MD documented in this encounterSt. Mary'S [facility] Center04-05-2024 Instructions* Patient Instructions* Amina Guzman MA - 01/10/2024 10:49 AM EDT SEQUENTIAL SCREENINGS The [facility] offers sequential screenings for women who are interested in screenings for chromosomal abnormalities and certain defects during a . The sequential screen combinesultrasound and blood tests to determine the risk of chromosomal abnormalities, including Down's Syndrome (Trisomy 21) and Trisomy 18, as well as open neural tube defects including spina bifida. Ultrasound examination is performed between 11 weeks and 13 weeks gestational age. Blood tests are drawn after the ultrasound and again later in the between 15 and 21 weeks gestational age. Please let your physician know if you are interested in this testing. It will require an appointment withour associate technician. This is not an ultrasound performed by a physician in our office during a routine visit. SIGNS AND SYMPTOMS OF LABOR 1. Contractions every 10 minutes or more often 2. Clear, pink, or brownish fluid (water) leaking from vagina 3. Feeling that baby is pushing down, pressure 4. Low, dull backache 5. Cramps that feel like a period 6. Cramps with or without diarrhea If you notice any of the above symptoms, contact our office at [phone] and ask to speak with anurse. After hours, you can call doctors registry at [phone] OR call [facility] at [phone] ask to have the doctor contract consultant paged. If you consider this an emergency, dial 91-3 or go to your nearest emergency department. NEED HELP? Are you dealing with a violent or abusive relationship? Are you a victim of rape or sexual assult? Call [facility] ([place]) 24 hour Crisis Hotline: 354.332.3953 or 652-796-2454. MANUAL Your Guide to a Healthy manual is now on-line. [email or web address] to download your free copy documented in this encounterSt. Mary'S Medical Center04-03-2024 History of Present illness Narrative* Henna Laura MA - 01/08/2024 1:06 PM EDT POPULATION HEALTH NAVIGATION OUTREACH Action/ Called and spoke to patient and she states she doesn't have a pediatrican in mind. Patient doesn't have a P2P-Next message and doesn't want to sign up for it so I gave patient the web address for our Find a Doctor link. I went over the benefits of this website and patient states she will go over it and I can call her on Saturday. OB/PEDS Reason for Outreach Medicaid OB/Peds Care Gaps due: N/A Patient Contacted: Spoke to patient/parent/or legal guardian Patient identified by name and : Yes Medicaid OB/Peds actions taken: Patient declined: Patient will call back later to schedule or asks for a call back Navigation Signature: Henna Laura MA January 08, 2024 1:07 PM documented in this encounterSt. Mary'S [facility] Center03-27-2024 Miscellaneous Notes* Quick Notes - Tahira Clayton MD - 01/01/2024 8:46 AM EDT RR- VB No. LOF No. CTXS irreg . Movement: present. Other c/o: little pelvic soreness Medication list reviewed. Physical Exam See Flow Sheet Abd: soft, nontender, gravid Ext: edema: Trace A/P 37w0d Estimated Date of Delivery: 01/22/24 f/u in 1 week or prn kick counts cont. PNV and fe. Tahira Clayton M.D. documented in this encounterSt. Mary'S Medical Center03-27-2024 Instructions* Patient Instructions* Lian Mcwilliams LPN - 01/01/2024 8:26 AM EDT SEQUENTIAL SCREENINGS The [facility] offers sequential screenings for women who are interested in screenings for chromosomal abnormalities and certain defects during a . The sequential screen combinesultrasound and blood tests to determine the risk of chromosomal abnormalities, including Down's Syndrome (Trisomy 21) and Trisomy 18, as well as open neural tube defects including spina bifida. Ultrasound examination is performed between 11 weeks and 13 weeks gestational age. Blood tests are drawn after the ultrasound and again later in the between 15 and 21 weeks gestational age. Please let your physician know if you are interested in this testing. It will require an appointment withour associate technician. This is not an ultrasound performed by a physician in our office during a routine visit. SIGNS AND SYMPTOMS OF LABOR 1. Contractions every 10 minutes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 every 1-2 hr if necessary. (Patient not taking: Reported on 11/27/2022) History reviewed. No pertinent family history. BP 102/64 Pulse 86 Temp 36.7 C (98.1 F) Resp 16 Wt 56.1 kg (123 lb 9.6 oz) SpO2 99% Review of Systems Constitutional: Positive for fever. Negative for chills and malaise/fatigue. HENT: Positive for sore throat. Negative for congestion, ear discharge, ear pain and sinus pain. Eyes: Negative for blurred vision, pain, discharge and redness. Respiratory: Negative for cough, hemoptysis, sputum production, shortness of breath, wheezing and stridor. Cardiovascular: Negative for chest pain. Gastrointestinal: Negative for abdominal pain, diarrhea, nausea and vomiting. Musculoskeletal: Negative for myalgias. Skin: Negative for itching and rash. Neurological: Positive for headaches. Negative for dizziness. Objective Physical Exam Constitutional: General: She is not in acute distress. Appearance: She is not diaphoretic. HENT: Head: Normocephalic. Jaw: No trismus, tenderness, swelling or pain on movement. Right Ear: Tympanic membrane, ear canal and external ear normal. Left Ear: Tympanic membrane, ear canal and external ear normal. Mouth/Throat: Lips: [employer]. Mouth: Mucous membranes are moist. Pharynx: Oropharynx is clear. Uvula midline. Posterior oropharyngeal erythema present. No pharyngeal swelling, oropharyngeal exudate or uvula swelling. Tonsils: Tonsillar exudate present. No tonsillar abscesses. 1+ on the right. 1+ on the left. Eyes: Conjunctiva/sclera: Conjunctivae normal. Pupils: Pupils are equal, round, and reactive to light. Cardiovascular: Rate and Rhythm: Normal rate and regular rhythm. Heart sounds: Normal heart sounds. Pulmonary: Effort: Pulmonary effort is normal. No tachypnea, accessory muscle usage or respiratory distress. Breath sounds: Normal breath sounds. No stridor. No wheezing, rhonchi or rales. Abdominal: General: There is no distension. Palpations: Abdomen is soft. Tenderness: There is no abdominal tenderness. There is no guarding or rebound. Musculoskeletal: Cervical back: Normal range of motion and neck supple. No rigidity or tenderness. No pain with movement. Normal range of motion. Lymphadenopathy: Cervical: No cervical adenopathy. Skin: General: Skin is warm and dry. Neurological: Mental Status: She is alert and oriented to person, place, and time. ASSESSMENT/PLAN: 1. Sore throat - ICD9: 462, ICD10: J02.9 (primary diagnosis) - STREP A MOLECULAR (POC) 2. Strep throat - ICD9: 034.0, ICD10: J02.0 Strep test was positive. Placed on amoxicillin. Supportive therapies discussed. Red flags prompt reevaluation discussed. Follow-up with PCP 3 to 5 days symptoms are not improving. Be seen in urgent care or ED for any new worsening or symptoms lasting longer than anticipated. Patient verbalized understand agrees with plan of care. Carlton Watt APRN.AMAN [facility]* Diagnosis Sore throat- Primary Acute pharyngitis Strep throat Streptococcal sore throat documented in this encounter [facility]* Diagnosis Late care affecting , antepartum- Primary documented in this encounter [facility]* Diagnosis Late care affecting , antepartum- Primary 14 weeks gestation of state, incidental documented in this encounter [facility]* Diagnosis Choroid plexus cyst of fetus affecting care of mother, antepartum, single or unspecified fetus- Primary documented in this encounter [facility]* Diagnosis Encounter for anatomic survey- Primary Late care affecting , antepartum 19 weeks gestation of state, incidental Choroid plexus cyst, , affecting care of mother, antepartum, single gestation documented in this encounter [facility]* Diagnosis 19 weeks gestation of - Primary state, incidental Late care affecting , antepartum Choroid plexus cyst, , affecting care of mother, antepartum, single gestation documented in [facility]* Diagnosis 32 weeks gestation of - Primary state, incidental Encounter for related examination in third trimester Encounter for supervision of normal first in third trimester Supervision of normal first GBS bacteriuria [facility]* Diagnosis Anemia during in third trimester- Primary Encounter for supervision of normal first in third trimester Supervision of normal first 35 weeks gestation of state, incidental [facility]* Diagnosis 37 weeks gestation of - Primary state, incidental Anemia during in third trimester Encounter for supervision of normal first in third trimester Supervision of normal first [facility]* Diagnosis 39 weeks gestation of - Primary state, incidental Anemia during in third trimester Encounter for supervision of normal first in third trimester Supervision of normal first [facility]* Diagnosis 39 weeks gestation of - Primary state, incidental Anemia during in third trimester Encounter for supervision of normal first in third trimester Supervision of normal first [facility]* Diagnosis Onset Date Resolution Status Active labor at term acute Lactating mother acute Positive GBS test acute Post term over 40 weeks acute (spontaneous vaginal delivery) acute [facility] Work Phone: Evaluation note* Diagnosis 6 weeks follow-up- Primary documented in [facility]* Diagnosis 38 weeks gestation of - Primary state, incidental Anemia during in third trimester Encounter for supervision of normal first in third trimester Supervision of normal first [facility]* Diagnosis Encounter for supervision of other normal in first trimester ([facility])- Primary with uncertain dates in first trimester ([facility]) Screen for STD (sexually transmitted disease) Screening examination for venereal disease Rh negative state in antepartum period ([facility]) Rhesus isoimmunization affecting management of mother, antepartum condition documented [facility] encounter [facility]* Diagnosis Screening for diabetes mellitus- Primary Encounter for supervision of normal first in second trimester ([facility]) Supervision of normal first 22 weeks gestation of ([facility]) state, incidental Rh negative state in antepartum period ([facility]) Rhesus isoimmunization affecting management of mother, antepartum condition documented [facility]* Diagnosis Supervision of high risk in second trimester ([facility])- Primary Unspecified high-risk Short interval between pregnancies affecting in second trimester, antepartum (HCC) 26 weeks gestation of (HCC) state, incidental * Assessment & Plan Note - Lia Ureña MD - 04/21/2025 4:25 PM EDT Associated Problem(s): Supervision of high risk in second trimester (HCC) documented in [facility] encounter [facility]* Diagnosis Supervision of high risk in second trimester (HCC)- Primary Unspecified high-risk Short interval between pregnancies affecting in second trimester, antepartum (HCC) 26 weeks gestation of (HCC) state, incidental Supervision of high risk in third trimester (HCC)- Primary Unspecified high-risk 28 weeks gestation of (HCC) state, incidental Short interval between pregnancies affecting in third trimester, antepartum ([facility]) Rh negative state in antepartum period ([facility]) Rhesus isoimmunization affecting management of mother, antepartum condition documented in this encounter [facility]* Diagnosis Supervision of high risk in second trimester (HCC)- Primary Unspecified high-risk Short interval between pregnancies affecting in second trimester, antepartum (HCC) 26 weeks gestation of (HCC) state, incidental Supervision of high risk in third trimester (HCC)- Primary Unspecified high-risk 30 weeks gestation of (HCC) state, incidental Short interval between pregnancies affecting in third trimester, antepartum (HCC) Rh negative state in antepartum period ([facility]) Rhesus isoimmunization affecting management of mother, antepartum condition documented in [facility]* Diagnosis Supervision of high risk in second trimester (HCC)- Primary Unspecified high-risk Short interval between pregnancies affecting in second trimester, antepartum (HCC) 26 weeks gestation of (HCC) state, incidental Supervision of high risk in third trimester (HCC)- Primary Unspecified high-risk Short interval between pregnancies affecting in third trimester, antepartum (HCC) 33 weeks gestation of (HCC) state, incidental Rh negative state in antepartum period ([facility]) Rhesus isoimmunization affecting management of mother, antepartum condition documented in this encounter [facility] for referral (narrative)* Diagnostic Procedure Only (Routine) - Pending Review Specialty Diagnoses / Procedures Referred By Contac t Referred To Contact [facility] Diagnoses Late care affecting , antepartum 14 weeks gestation of Procedures OBSTETRIC ULTRASOUND WHI US PREG UTERUS AFTER 1ST TRIMEST 1/ GESTATION Yi Cobos APRN.CNM [address] [place] [address] [address] Referral ID Status Reason Start Date Expiration Date Visits Requested Visits Authorized [id number] Pending Review Auto-Generat ed Referral 07/29/2024 1 1 [facility] for referral (narrative)* Diagnostic Procedure Only (Routine) - Pending Review Specialty Diagnoses / Procedures Referred By Contac t Referred To Contact [facility] Diagnoses Choroid plexus cyst of fetus affecting care of mother, antepartum, single or unspecified fetus Procedures OBSTETRIC ULTRASOUND WHI US PREG UTERUS AFTER 1ST TRIMEST 1 GESTATION Yi Cobos APRN.CNM [address] [place] [address] [address] Referral ID Status Reason Start Date Expiration Date Visits Requested Visits Authorized [id number] Pending Review Auto-Generat ed Referral 08/14/2023 08/13/2024 1 1 [facility] Chief Complaint and Reason for Visit Chief Complaint VAGINAL DELIVERY Reason for Visit Active labor at term Lactating mother Positive GBS test Post term over 40 weeks (spontaneous vaginal delivery) Advance Directives No Advanced Directives Records Found Advance Directive Response Recorded Date/ Time Living Will No January 27, 2024 10:20am Power of Tobacco Stemmer No January 26 10:20am Summary Purpose Family History No Family History Records FoundNo Family History Records Found Additional Source Comments Source Comments (unrecognize d section and content) In the event this informatio n is protected by the Federal Confidentiality of Alcohol and Drug Abuse Patient Records regulations: The Federal rules restrict any use of the information to criminally investigate or prosecute any alcohol or drug abuse patient.[facility] the event this information is protected by the Federal Confidentiality of Alcohol and Drug Abuse Patient Records regulations: The Federal rules restrict any use of the information to criminally investigate or prosecute any alcohol or drug abuse patient.[facility] the event this information is protected by the Federal Confidentiality of Alcohol and Drug Abuse Patient Records regulations: The Federal rules restrict any use of the information to criminally investigate or prosecute any alcohol or drug abuse patient.[facility] the event this information is protected by the Federal Confidentiality of Alcohol and Drug Abuse Patient Records regulations: The Federal rules restrict any use of the information to criminally investigate or prosecute any alcohol or drug abuse patient.[facility] Center[facility] the event this information is protected by the Federal Confidentiality of Alcohol and Drug Abuse Patient Records regulations: The Federal rules restrict any use of the information to criminally investigate or prosecute any alcohol or drug abuse patient.[facility] the event this information is protected by the Federal Confidentiality of Alcohol and Drug Abuse Patient Records regulations: The Federal rules restrict any use of the information to criminally investigate or prosecute any alcohol or drug abuse patient.[facility] Center[facility] the event this information is protected by the Federal Confidentiality of Alcohol and Drug Abuse Patient Records regulations: The Federal rules restrict any use of the information to criminally investigate or prosecute any alcohol or drug abuse patient.[facility] Center[facility] the event this information is protected by the Federal Confidentiality of Alcohol and Drug Abuse Patient Records regulations: The Federal rules restrict any use of the information to criminally investigate or prosecute any alcohol or drug abuse patient.[facility] Center[facility] the event this information is protected by the Federal Confidentiality of Alcohol and Drug Abuse Patient Records regulations: The Federal rules restrict any use of the information to criminally investigate or prosecute any alcohol or drug abuse patient.[facility] Center[facility] the event this information is protected by the Federal Confidentiality of Alcohol and Drug Abuse Patient Records regulations: The Federal rules restrict any use of the information to criminally investigate or prosecute any alcohol or drug abuse patient.[facility] Center[facility] the event this information is protected by the Federal Confidentiality of Alcohol and Drug Abuse Patient Records regulations: The Federal rules restrict any use of the information to criminally investigate or prosecute any alcohol or drug abuse patient.[facility] CenterIn the event this information is protected by the Federal Confidentiality of Alcohol and Drug Abuse Patient Records regulations: The Federal rules restrict any use of the information to criminally investigate or prosecute any alcohol or drug abuse patient.[facility] CenterIn the event this information is protected by the Federal Confidentiality of Alcohol and Drug Abuse Patient Records regulations: The Federal rules restrict any use of the information to criminally investigate or prosecute any alcohol or drug abuse patient.[facility] Center[facility] the event this information is protected by the Federal Confidentiality of Alcohol and Drug Abuse Patient Records regulations: The Federal rules restrict any use of the information to criminally investigate or prosecute any alcohol or drug abuse patient.[facility] CenterIn the event this information is protected by the Federal Confidentiality of Alcohol and Drug Abuse Patient Records regulations: The Federal rules restrict any use of the information to criminally investigate or prosecute any alcohol or drug abuse patient.[facility] CenterIn the event this information is protected by the Federal Confidentiality of Alcohol and Drug Abuse Patient Records regulations: The Federal rules restrict any use of the information to criminally investigate or prosecute any alcohol or drug abuse patient.[facility] CenterIn the event this information is protected by the Federal Confidentiality of Alcohol and Drug Abuse Patient Records regulations: The Federal rules restrict any use of the information to criminally investigate or prosecute any alcohol or drug abuse patient.[facility] CenterIn the event this information is protected by the Federal Confidentiality of Alcohol and Drug Abuse Patient Records regulations: The Federal rules restrict any use of the information to criminally investigate or prosecute any alcohol or drug abuse patient.[facility] CenterIn the event this information is protected by the Federal Confidentiality of Alcohol and Drug Abuse Patient Records regulations: The Federal rules restrict any use of the information to criminally investigate or prosecute any alcohol or drug abuse patient.[facility] CenterIn the event this information is protected by the Federal Confidentiality of Alcohol and Drug Abuse Patient Records regulations: The Federal rules restrict any use of the information to criminally investigate or prosecute any alcohol or drug abuse patient.[facility] CenterIn the event this information is protected by the Federal Confidentiality of Alcohol and Drug Abuse Patient Records regulations: The Federal rules restrict any use of the information to criminally investigate or prosecute any alcohol or drug abuse patient.[facility] CenterIn the event this information is protected by the Federal Confidentiality of Alcohol and Drug Abuse Patient Records regulations: The Federal rules restrict any use of the information to criminally investigate or prosecute any alcohol or drug abuse patient.[facility] CenterIn the event this information is protected by the Federal Confidentiality of Alcohol and Drug Abuse Patient Records regulations: The Federal rules restrict any use of the information to criminally investigate or prosecute any alcohol or drug abuse patient.[facility] Reason for Visit (unrecogniz ed section and content) Reason Comments Sore Throat headache,fever and s tiff neck x 2 days Reason Comments Care Specialty Diagnoses / Procedures Referred By Contac t Referred To Contact EARTH BURNER Diagnoses New OB visits, including PNOB Procedures OB visits, including PNOB [employer] [address] [place] [address] Referral ID Status Reason Start Date Expiration Date V isits Requested Visits Authorized [id number] Closed Financial Clearance Required - OON Payor Patient Cleared - [employer] 06/19/2023 09/17/2023 1 1 Reason Comments US Specialty Diagnoses / Procedures Referred By Contac t Referred To Contact EARTH BURNER Diagnoses Encounter for follow-up ultrasound of anatomy Procedures Anatomy scan [employer] [address] [place] [address] Referral ID Status Reason Start Date Expiration Date V isits Requested Visits Authorized [id number] Closed Financial Clearance Required - Self Pay Patient Cleared - INN Insurance Found 07/30/2023 10/28/2023 1 1 Reason Onset Date Comments Care 09/02/2023 Reason Onset Date Comments Care 11/27/2023 Reason Onset Date Comments Care 12/24/2023 Reason Onset Date Comments Care 01/01/2024 Reason Onset Date Comments Population Health Navigation Outreach 01/08/2024 OB/PEDS Reason Onset Date Comments Care 01/17/2024 Reason Onset Date Comments Care 01/21/2024 Reason Comments Ob Delivery Note Reason Comments Care Reason Onset Date Comments Care 01/10/2024 Reason Comments Initial OB Visit Reason Onset Date Comments Care 03/24/2025 Reason Onset Date Comments Care 04/21/2025 Reason Onset Date Comments Care 05/05/2025 Reason Onset Date Comments Care 05/21/2025 Reason Onset Date Comments Care 06/11/2025 Care Teams (unrecognized sec tion and content) Team Status: Active Member Role Status Dates No Primary Care Physician Primary Care Provider Active Team Status: Inactive Member Role Status Dates No Primary Care Physician Primary Care Provider Active Dr. Dayan Mcwilliams MD Admit Provider, Attending Pro vider Active INFORMATION SOURCE (unrecogn ized section and content) DATE CREATED AUTHOR 06/04/2025 [facility] DATE CREATED AUTHOR AUTHOR'S ROMANA FORD 07/23/2025 [facility] FOR RECORDS PERTAINING TO PATIENTS WHO ARE OR HAVE BEEN ENROLLED IN A CHEMICAL DEPENDENCY/SUBSTANCEABUSE PROGRAM, SOME INFORMATION MAY BE OMITTED. This clinical summary was aggregated from multiple sources. Caution should be exercised in using it in the provision of clinical care. This summary normalizes information from multiple sources, and as a consequence, information in this document may materially change the coding, format and clinical context of patient data. In addition, data may be omitted in some cases. CLINICAL DECISIONS SHOULD BE BASED ON THE PRIMARY CLINICAL RECORDS. [facility] [employer] [facility]. provides no warranty or guarantee of the accuracy or completeness of information in this document.
[2025-07-28] MEDS: Penicillin G Pot 5,000,000 UNITS in 0.9% Normal Saline (100mL MB+) 100 ML 150 UNITS IV (18:53)
[2025-07-28] MEDS: Lactated Ringers 1,000 ML 50 ML IV (18:53)
[2025-07-28 18:56] LABS: Hematocrit 35.2 % (37-47); Hemoglobin 11.8 g/dL (12.0-15.0); Immature Granulocytes Count 0.040 X10^3/uL (0.0-0.0); Mean Corp Hgb Conc 33.5 g/dL (32-36); Mean Corpuscular Volume 87.8 fL (81-99); Mean Platelet Vol. 10.4 fl (6.2-12.0); NRBC Flagged by Analyzer 0 % (0-5); Platelet Count 192 K/mm3 (150-450); RBC Distribution Width CV 12.4 % (11.6-14.6); RBC Distribution Width SD 39.5 fl (35.1-43.9); Red Blood Count 4.01 M/mm3 (4.2-5.4); White Blood Count 9.8 K/mm3 (4.4-11.0)
[2025-07-28 19:41] LABS: Syphilis Antibodies Nonreactive (Nonreactive)
--- NOTE | 2025-07-28 21:12 | PCM.HP.OB ---
HPI - General General Date of Admission: 07/28/25 Date of Service: 07/28/25 Chief Complaint: contractions HPI Narrative MURIEL HILL, is a 25 F who presents increasingly painful contractions. GBS positive Maternal Data Information Final CHRISTOPHER: 07/26/25 Gestational age: 40+2 PFSH PFS Medical History Superficial varicosities Home Medications ?Medication ?Instructions ?Recorded ?Last Taken ?Type vit no.95-ferrous 1 tab PO DAILY 01/27/24 07/27/25 History fumarate 28 mg-folic acid 800 mcg tablet () Allergy/AdvReac Type Severity Reaction Status Date / Time No Known Allergies Allergy Verified 07/28/25 17:25 Surgical History History of surgery Social History Smoking Status: Never smoker History 2 Elective abortions Hx Para 1 Spontaneous abortions Hx # Term Pregnancies Ectopic pregnancies Hx # Pregnancies Multiple births # of living children ROS Constitutional Constitutional: Denies fatigue, fever(s) or malaise Eyes Eyes: Denies change in vision ENT HEENT: Denies dizziness or headache(s) Cardiovascular Cardiovascular: Denies chest pain, dyspnea or lightheadedness Respiratory/Chest Respiratory/Chest: Denies cough or dyspnea Gastrointestinal Gastrointestinal: Denies change in bowel habits Genitourinary Genitourinary: Denies burning urination or genital lesions Integumentary Integumentary: Denies rash Neurologic Neurologic: Denies confusion, dizziness, headache(s), numbness or weakness Vital Signs Vital Signs Vital Signs: 07/28/25 17:23 07/28/25 17:23 07/28/25 17:24 Temperature Temperature Source Pulse Rate 87 Respiratory Rate Blood Pressure 123/79 H BP Systolic 123 BP Diastolic 79 Pulse Ox 99 07/28/25 17:24 07/28/25 17:24 07/28/25 17:24 Temperature Temperature Source Tympanic Pulse Rate 83 Respiratory Rate 13 Blood Pressure BP Systolic BP Diastolic Pulse Ox 07/28/25 17:24 07/28/25 17:24 07/28/25 17:28 Temperature 98.0 F Temperature Source Pulse Rate 91 Respiratory Rate Blood Pressure BP Systolic BP Diastolic Pulse Ox 99 07/28/25 17:28 07/28/25 19:35 07/28/25 19:35 Temperature Temperature Source Pulse Rate 91 Respiratory Rate Blood Pressure BP Systolic BP Diastolic Pulse Ox 98 98 07/28/25 19:35 07/28/25 19:35 07/28/25 19:35 Temperature 97.2 F L Temperature Source Temporal Pulse Rate Respiratory Rate 16 Blood Pressure BP Systolic BP Diastolic Pulse Ox 07/28/25 19:36 07/28/25 19:36 Temperature Temperature Source Pulse Rate 83 Respiratory Rate Blood Pressure 128/74 H BP Systolic 128 BP Diastolic 74 Pulse Ox Weight Weight: 70.125 kg Body Mass Index (BMI) 24.9 Physical Exam Const alert and no apparent distress General Appearance: cooperative HEENT normocephalic Resp normal respiratory effort Cardio regular rate GI soft to palpation GI Narrative: gravid, nontender, appropriate for gestational age Extremity no calf tenderness General Extremity: edema Skin no wounds Rashes: No rashes noted Psych activity/motor behavior normal Labs Labs Labs: Blood Type A NEGATIVE Antibody Screen NEGATIVE Hct, (37-47) 35.2 % L Hgb, (12.0-15.0) 11.8 g/dL L Syphilis Total Ab, (Nonreactive) Nonreactive Rhogam given: Yes Assessment & Plan (1) Positive GBS test: (2) Active labor at term: PLAN: Plan admit for labor GBS positive PCN
[2025-07-28] MEDS: Penicillin G 3,000,000 Units 50 ML 100 UNITS IV (22:54)
[2025-07-28] MEDS: 0.9% Saline Lock 10 ML Syringe IV (22:54)
[2025-07-29] VITALS (17 sets, daily range): BP systolic 101–121; BP diastolic 56–71; PULSE 75–96; RESP 15–18; TEMP 36.6–36.8; O2SAT 96–100
[2025-07-29] MEDS: Penicillin G 3,000,000 Units 50 ML 100 UNITS IV ×2 (02:59→07:33)
[2025-07-29] MEDS: 0.9% Saline Lock 10 ML Syringe IV (03:05)
--- NOTE | 2025-07-29 07:55 | PCM.PN.OB ---
Subjective Subjective AROM for clear fluid. 6 cm/100/0. Intermittent auscultation. ctx q 2 Objective Data Objective Data Vital Signs: Vital Signs Temp Pulse Resp BP Pulse Ox 98.2 F 83 18 108/71 96 07/29/25 07:17 07/29/25 07:17 07/29/25 07:17 07/29/25 07:16 07/29/25 07:17 Weight: 70.125 kg Body Mass Index (BMI) 24.9 Intake & Output: Intake and Output for Last 24 Hours 07/27/25 07/28/25 07/29/25 23:59 23:59 23:59 Intake Total 233.33 / 233.33 50 / 50 Balance 233.33 / 233.33 50 / 50 Lab / Micro Data 07/28/25 18:25 Labs: Laboratory Results - last 24 hr 07/28/25 18:25: WBC 9.8, RBC 4.01 L, Hgb 11.8 L, Hct 35.2 L, MCV 87.8, MCH 29.4, MCHC 33.5, RDW Std Deviation 39.5, RDW Coeff of Janee 12.4, Plt Count 192, MPV 10.4, Immature Gran % (Auto) 0.400, Neut % (Auto) 72.0 H, Lymph % (Auto) 19.6, [place] % (Auto) 7.5, Eos % (Auto) 0.4, Baso % (Auto) 0.1, Absolute Neuts (auto) 7.1, Absolute Lymphs (auto) 1.92, Nucleated RBC % 0, Syphilis Total Ab Nonreactive, Blood Type A NEGATIVE, Antibody Screen NEGATIVE Assessment & Plan (1) Positive GBS test: (2) Active labor at term:
--- NOTE | 2025-07-29 08:20 | PN.OBGYN_ITS ---
Subjective Subjective Patient seen at bedside. Standing with partner and swaying back and forth. Breathing through contractions. Feeling pressure during contractions but resolves once contraction is over. Objective Data Objective Data Vital Signs: Vital Signs Temp Pulse Resp BP Pulse Ox 98.2 F 83 18 108/71 96 07/29/25 07:17 07/29/25 07:17 07/29/25 07:17 07/29/25 07:16 07/29/25 07:17 Weight: 154 lb 9.6 oz Body Mass Index (BMI) 24.9 Intake & Output: Intake and Output for Last 24 Hours 07/27/25 07/28/25 07/29/25 23:59 23:59 23:59 Intake Total 233.33 / 233.33 50 / 50 Balance 233.33 / 233.33 50 / 50 Lab / Micro Data 07/28/25 18:25 Labs: Laboratory Results - last 24 hr 07/28/25 18:25: WBC 9.8, RBC 4.01 L, Hgb 11.8 L, Hct 35.2 L, MCV 87.8, MCH 29.4, MCHC 33.5, RDW Std Deviation 39.5, RDW Coeff of Janee 12.4, Plt Count 192, MPV 10.4, Immature Gran % (Auto) 0.400, Neut % (Auto) 72.0 H, Lymph % (Auto) 19.6, [place] % (Auto) 7.5, Eos % (Auto) 0.4, Baso % (Auto) 0.1, Absolute Neuts (auto) 7.1, Absolute Lymphs (auto) 1.92, Nucleated RBC % 0, Syphilis Total Ab Nonreactive, Blood Type A NEGATIVE, Antibody Screen NEGATIVE Assessment & Plan (1) 40 weeks gestation of : (2) Spontaneous onset of labor: (3) Positive GBS test: (4) Post term over 40 weeks: (5) Active labor at term: PLAN: Plan Continue present plan of care CE 5-6 cm90/-1 AROM for clear fluid by Dr. Oj DALAL
[2025-07-29] MEDS: Oxytocin 15 Units/NS 250ml 15 UNITS/250 ML IV.SOLN 334 UNITS IV (09:10)
--- NOTE | 2025-07-29 09:31 | OB.VAGDELI_ITS ---
Assessment & Plan (1) Rh negative status during : (2) (spontaneous vaginal delivery): (3) Laceration, obstetrical, second degree: Maternal Data Information CHRISTOPHER Calculator Estimated Delivery Date Method Current WG Current Estimate 07/26/25 Manual 40w 3d Final CHRISTOPHER: 07/26/25 Vaginal Delivery Maternal Presentation Maternal Presentation: Active Labor Type of Induction: Amniotomy (Augmentation) Vaginal Delivery Information Procedure Performed: Spontaneous Vaginal Delivery Surgeon/Practitioner: Yi Lacy Date of Procedure: 07/29/25 Pre-Procedure Diagnosis: Term gestation, spontaneous onset of labor Post-Procedure Diagnosis: , Live female infant Type of anesthesia: None (Nitrous oxide) Estimated Blood Loss: 250 Time of Delivery: 09:06 Findings Description of procedure: Provided bedside laboring support to patient. Patient progressed to complete dilation. With good maternal effort, head delivered followed by anterior shoulder and remainder of body without any force, delay, or traction. Vigorous female was delivered atraumatically and placed on maternal abdomen. Pitocin IV started for active management of the third stage of labor. 3 vessel cord clamped and cut by FOB after delay and infant placed immediately skin to skin with patient. Cord blood collected and sent. Placenta delivered spontaneously and intact. A second degree laceration was repaired in usual fashion using 3-0 Vicryl Rapid after local anesthetic placed. Hemostasis obtained. Vaginal sweep performed. Fundus is firm 2 below U and bleeding is hemostatic. Sponge and sharps counts correct. Patient and infant bonding well at this time. Dr. England notified of delivery. Routine post orders placed. 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
[2025-07-29] MEDS: Oxytocin 15 Units/NS 250ml 15 UNITS/250 ML IV.SOLN 83 UNITS IV (09:42)
[2025-07-29] MEDS: Lidocaine 1% (20 ml mdv) 20 ML Vial INFILT (09:48)
[2025-07-29] MEDS: Rho(D) Immune Globulin 300 MCG (1500 Unit) Syringe IV (18:09)
[2025-07-30 00:05] VITALS: BP 105/63; PULSE 69; PULSE 71; PULSE 73; RESP 16; TEMP 36.3; O2SAT 97; O2SAT 98
[2025-07-30 04:54] VITALS: BP 84/46; PULSE 81; O2SAT 92
[2025-07-30 04:55] VITALS: BP 99/52; PULSE 78; PULSE 88; PULSE 89; RESP 14; TEMP 36.2; O2SAT 97; O2SAT 98
--- NOTE | 2025-07-30 06:57 | PCM.DC.SUM ---
Providers Date of Admission: 07/28/25 Primary Care Physician: Chelsea Primary Care Phys Reason For Visit: LABOR AND DELIVERY/VAGINAL DELIVERY Diagnosis Discharge Diagnosis (1) Rh negative status during : Status: Acute Code(s): O26.899 - Other specified related conditions, unspecified trimester; Z67.91 - Unspecified blood type, Rh negative (2) (spontaneous vaginal delivery): Status: Acute Code(s): O80 - Encounter for full-term uncomplicated delivery (3) Laceration, obstetrical, second degree: Status: Acute Code(s): O70.1 - Second degree perineal laceration during delivery Plan PPD 1 Routine care support Desires discharge home later today Medications at Discharge Home Medications vit no.95-ferrous fumarate 28 mg-folic acid 800 mcg tablet () 1 tab PO DAILY 01/27/24 acetaminophen 500 mg tablet 1,000 mg (2 x 500 mg) PO Q6H PRN PRN Pain 1-10 Or Fever #0 tabs 07/30/25 naproxen 500 mg tablet 500 mg PO Q8H PRN PRN Pain Score 1-10 #0 tabs 07/30/25 Hospital Course Operations None Procedures None Summary of Care Provided Minutes Spent on Discharge: 15 Hospital Course: Patient had vaginal delivery. Hospital course was uneventful. Physical Exam Narrative Patient seen at bedside. Denies pain. Ambulating and voiding without difficulty. Lochia decreased. Desires discharge home today. Const alert and oriented x3 General Appearance: Negative for in distress HEENT normocephalic Eyes General Eye: normal appearance of both eyes Neck General: normal visual inspection Chest Chest: symmetrical chest wall rise Resp normal respiratory effort and normal air movement Effort and Inspection: symmetric chest movement; Negative for tachypneic Auscultation: clear to auscultation bilaterally Cardio regular rate and regular rhythm Peripheral Pulses: pulses 2+ throughout GI normal to inspection, nondistended, normoactive bowel sounds Narrative: Ice to perineum OB / External & Speculum: vaginal bleeding and other Lochia decreasing Uterus Palpation: uterus fundus firm (Below U) Extremity normal to inspection, full ROM and normal capillary refill Skin no rashes or lesions noted Neuro oriented x3, CN's II-XII intact bilaterally and gait normal Psych mental status grossly normal, thought process normal and activity/motor behavior normal Weight / BMI Weight Weight: 154 lb 9.6 oz Body Mass Index (BMI) 24.9 ABG / Lab / Microbiology Data 07/28/25 18:25 Laboratory: Laboratory Results - last 24 hr 07/29/25 12:40: Screen NEGATIVE, Baby's Blood Type A POSITIVE, Baby's TRENA NEGATIVE D/C Instructions Discharge Activity: Return to Normal Activity, No Restrictions, May Drive, May Shower and May Take a Tub Bath (Warm water only. No bath salts, soaps, bubbles) May resume sexual activity in: 6-8 weeks Weight Bearing Status: Weight bearing as tolerated Call your doctor if you observe: Fever of 101 or Higher, Inability to urinate, Using more than 1 pad per hour, Shortness of breath, Dizziness, Chest pain, Calf discomfort and Uncontrolled pain DC O2, CPAP, BIPAP Needs Home O2 Discharge instructions: No Please Follow Up With: [facility] Erica BENSON When: 2 weeks in office or virtual Meaningful Use Info Meaningful Use Meaningful Use Diagnoses (Choose all that apply): None applicable Discharge Plan Admission Admit Date/Time: 07/28/25 17:55 Primary Reason for Your Visit: Labor and Delivery Attending Provider: Yi Lacy Primary Care Provider: Care Physician,No Primary Discharge Orders/Prescriptions Prescriptions: New acetaminophen 500 mg Tablet 1,000 mg PO Q6H PRN PRN (Reason: Pain 1-10 Or Fever) Qty: 0 0RF naproxen 500 mg Tablet 500 mg PO Q8H PRN PRN (Reason: Pain Score 1-10) Qty: 0 0RF Continued PNV no.95-ferrous fumarate-FA [] 28 mg iron- 800 mcg tablet 1 tab PO DAILY Referrals / Follow Up: Yi Lacy CNM [Med Staff - Adv Practice Prof, Obstetrics] Care Physician,No Primary [Primary Care Provider, Medical] Disposition Disposition (needs filled in before D/C Order can be placed): Home, Self Care
[2025-07-30 09:04] VITALS: BP 91/50; PULSE 78; RESP 16; TEMP 36.4; O2SAT 97
[2025-07-30] MEDS: Senna/Docusate Sodium 1 Tablet PO (11:58)
== END 2025-07-30 12:00 | disposition home or self-care (01) | DRG 807 ==
LOC: WPOUT 17:59 → WP 17:59
PROVIDERS: Obstetrics & Gynecology; Admitting Provider Advanced Practice Midwife; Referring Provider Advanced Practice Midwife; Visit Provider Advanced Practice Midwife
DX: O99.824 Streptococcus B carrier state complicating childbirth (principal); Z37.0 Single live birth; O26.893 Other specified pregnancy related conditions, third trimester; Z67.11 Type A blood, Rh negative; O69.81X0 Labor and delivery complicated by cord around neck, without compression, not applicable or unspecified; O70.1 Second degree perineal laceration during delivery; Z3A.40 40 weeks gestation of pregnancy
CPT/HCPCS: 59025; 59050; 85025; 85461; 86780; 86850; 86900; 86901; 90384; 99221; A4216; G0378; J2790; J2791